=== PATIENT | female | born 1995 | race Caucasian/White ===

== ENCOUNTER 2020-01-02 19:24 | Emergency (ER) | payer MEDICAID, SELFPAY ==
[~2020-01-02] VITALS: Ht 160 cm; Wt 50.0 kg
[2020-01-02 19:25] VITALS: BP 129/81
[2020-01-02] MEDS ORDERED: NOVOINJ SC (19:33)
[2020-01-02] MEDS ORDERED: LANTINJ4 SC (19:33)
[2020-01-02] MEDS ORDERED: NS 1,000 ML IV ONE (19:45)
[2020-01-02] MEDS ORDERED: HumuLIN R (REGULAR) INSULIN (NovoLIN R) **100U/ML** PER UNIT IV ONE (20:15)
[2020-01-02 20:19] LABS: VENOUS PH 7.266 UNITS (7.330-7.430)
[2020-01-02 20:20] LABS: VENOUS BASE EXCESS -0.1 (-2.0-2.0); VENOUS HCO3 28.7 MEQ/L (23.0-27.0); VENOUS O2 SATURATION 46.6 % (60.0-80.0); VENOUS PARTIAL PRESSURE CO2 64.5 mmHg (38.0-50.0); VENOUS PARTIAL PRESSURE O2 28.5 mmHg (30.0-50.0); VENOUS STANDARD HCO3 23.1 MEQ/L; VENOUS TOTAL CO2 30.7 MEQ/L (24.0-28.0)
[2020-01-02 20:24] LABS: BASO % 0.4 % (0.0-1.0); EOS % 0.3 % (0.0-3.0); HEMATOCRIT 44.7 % (36.0-47.0); HEMOGLOBIN 15.2 g/dl (12.0-15.5); LYMPH % 27.4 % (24.0-44.0); MEAN CORPUSCULAR HEMOGLOBIN 29.4 pg (27.0-33.0); MEAN CORPUSCULAR VOLUME 86.5 fl (80.0-96.0); MONO # 0.7 10^3/uL (0.0-0.8); MONO % 10.3 % (0.0-5.0); NEUTROPHILS # 4.4 10^3/uL (1.5-8.5); NEUTROPHILS % 61.3 % (36.0-66.0); PLATELET COUNT, AUTOMATED 337 10^3/uL (150-450); RED BLOOD COUNT 5.17 10^6/uL (4.00-5.40); WHITE BLOOD COUNT 7.1 10^3/uL (4.0-10.0)
[2020-01-02 20:45] LABS: HEMOGLOBIN A1c 13.5 %
[2020-01-02 20:52] LABS: ACETONE/KETONE 1.82 MG/DL (<2.81); ALBUMIN 2.8 GM/DL (3.2-5.2); ALT/SGPT 54 U/L (12-78); BILIRUBIN,DIRECT < 0.1 MG/DL (0.0-0.2); BILIRUBIN,TOTAL 0.2 MG/DL (0.2-1.0); BLOOD UREA NITROGEN 13 MG/DL (7-18); CALCIUM LEVEL 8.6 MG/DL (8.5-10.1); CARBON DIOXIDE LEVEL 31 MEQ/L (21-32); CHLORIDE LEVEL 104 MEQ/L (98-107); CREATININE FOR GFR 0.55 MG/DL (0.55-1.30); GLOMERULAR FILTRATION RATE > 60.0 (>60); GLUCOSE, FASTING 184 MG/DL (70-100); LIPASE 195 U/L (73-393); POTASSIUM SERUM 3.9 MEQ/L (3.5-5.1); SODIUM LEVEL 138 MEQ/L (136-145); TOTAL PROTEIN 6.2 GM/DL (6.4-8.2)
[2020-01-02 21:04] LABS: ABG BASE EXCESS -1.6 (-2.0-2.0); ABG HCO3 23.2 MEQ/L (22.0-26.0); ABG O2 SATURATION 97.8 % (95.0-99.0); ABG PARTIAL PRESSURE CO2 39.8 mmHg (35.0-45.0); ABG PARTIAL PRESSURE O2 106.4 mmHg (75.0-100.0); ABG STANDARD HCO3 23.1 MEQ/L (22.0-26.0); ABG TOTAL CO2 24.5 MEQ/L (22.0-29.0); ABG pH (ARTERIAL) 7.384 UNITS (7.350-7.450)
[2020-01-02] MEDS ORDERED: cefTRIAXone SOD 1 GM in D5W MINI-BAG PLUS 50 ML IV ONE (21:15)
[2020-01-02] MEDS ORDERED: ISOVUE-370 76% 100ML VIAL As Ordered ONE (21:25)
--- NOTE | 2020-01-02 22:10 | REPVR ---
PROCEDURE INFORMATION: Exam: CT Abdomen And Pelvis With Contrast Exam date and time: 01/02/2020 9:57 PM Age: 24 years old Clinical indication: Abdominal pain; Flank; Left; Additional info: Left flank pain, dysuria TECHNIQUE: Imaging protocol: Computed tomography of the abdomen and pelvis with intravenous contrast. Radiation optimization: All CT scans at this facility use at least one of these dose optimization techniques: automated exposure control; mA and/or kV adjustment per patient size (includes targeted exams where dose is matched to clinical indication); or iterative reconstruction. Contrast material: ISOVUE 370; Contrast volume: 100 ml; Contrast route: IV; COMPARISON: No relevant prior studies available. FINDINGS: Liver: Normal. No mass. Gallbladder and bile ducts: Normal. No calcified stones. No ductal dilation. Pancreas: Normal. No ductal dilation. Spleen: There are calcified granulomas involving the spleen. Adrenals: Normal. No mass. Kidneys and ureters: Normal. No hydronephrosis. Stomach and bowel: Moderate to large volume of colonic stool. Appendix: No evidence of appendicitis. Intraperitoneal space: Unremarkable. No free air. No significant fluid collection. Vasculature: Unremarkable. No abdominal aortic aneurysm. Lymph nodes: Scattered mildly enlarged mesenteric lymph nodes. Bladder: Under distended urinary bladder with thickening. Reproductive: Unremarkable as visualized. Bones/joints: Unremarkable. No acute fracture. Soft tissues: Unremarkable. IMPRESSION: 1. Thickening of the urinary bladder wall may at least in part be secondary to underdistention, cystitis not excluded. Please correlate clinically. 2. Scattered mildly enlarged mesenteric lymph nodes, nonspecific. 3. Additional findings as above. Electronically signed by: Олег Mancini On 01/02/2020 22:10:02 PM
[2020-01-02] MEDS ORDERED: BACTRIM 160MG/800MG DS TAB PO ONE (22:45)
[2020-01-02] MEDS ORDERED: BACT800T5 PO (22:48)
== END 2020-01-02 23:25 | disposition home or self-care (01) ==
LOC: M ED 19:24
DX: E10.65 Type 1 diabetes mellitus with hyperglycemia (principal); N39.0 Urinary tract infection, site not specified; R10.9 Unspecified abdominal pain; Z79.4 Long term (current) use of insulin
CPT/HCPCS: 36600; 74177; 80048; 80076; 81001; 82010; 82803; 83036; 83690; 84702; 85025; 87088; 87186; 93041; 96365; 99284; J0696; Q9967

== ENCOUNTER → 2020-01-02 | Outpatient (CLI) | payer MEDICAID, SELFPAY ==
[~2020-01-02] MED LIST: BACT800T5 PO; LANTINJ4 SC; NOVOINJ SC
== END ==
LOC: M OUTALCOH 07:51
PROVIDERS: ATTEND Psychiatry & Neurology Addiction Medicine
DX: F15.20 Other stimulant dependence, uncomplicated (principal)

== ENCOUNTER 2020-08-26 20:41 | Emergency (ER) | payer MEDICAID, OTHER, SELFPAY ==
[~2020-08-26] VITALS: Ht 160 cm; Wt 56.4 kg
[2020-08-26] MEDS ORDERED: SENN-80 PO (20:58)
[2020-08-26] MEDS ORDERED: CVS1CAP2 PO (20:58)
[2020-08-26] MEDS ORDERED: MIRA3350 PO (20:58)
[2020-08-26 21:28] LABS: VENOUS PH 7.328 UNITS (7.330-7.430)
[2020-08-26 21:29] LABS: VENOUS BASE EXCESS -1.3 (-2.0-2.0); VENOUS HCO3 25.3 MEQ/L (23.0-27.0); VENOUS O2 SATURATION 79.3 % (60.0-80.0); VENOUS PARTIAL PRESSURE CO2 49.3 mmHg (38.0-50.0); VENOUS PARTIAL PRESSURE O2 47.1 mmHg (30.0-50.0); VENOUS TOTAL CO2 26.8 MEQ/L (24.0-28.0)
[2020-08-26 21:30] LABS: BASO % 0.6 % (0.0-1.0); EOS % 0.1 % (0.0-3.0); HEMATOCRIT 42.7 % (36.0-47.0); HEMOGLOBIN 14.1 g/dl (12.0-15.5); LYMPH # 1.7 10^3/uL (1.5-5.0); LYMPH % 24.3 % (24.0-44.0); MEAN CORPUSCULAR HEMOGLOBIN 28.5 pg (27.0-33.0); MEAN CORPUSCULAR VOLUME 86.4 fl (80.0-96.0); MONO # 0.6 10^3/uL (0.0-0.8); MONO % 8.4 % (0.0-5.0); NEUTROPHILS # 4.7 10^3/uL (1.5-8.5); NEUTROPHILS % 66.3 % (36.0-66.0); PLATELET COUNT, AUTOMATED 354 10^3/uL (150-450); RED BLOOD COUNT 4.94 10^6/uL (4.00-5.40)
[2020-08-26 22:01] LABS: HCG, SERUM QUALITATIVE NEGATIVE (NEGATIVE); OSMOLALITY SERUM 305 MOSM/KG (275-295)
[2020-08-26 22:15] LABS: ACETONE/KETONE 9.07 MG/DL (<2.81); ALBUMIN 2.8 GM/DL (3.2-5.2); ALT/SGPT 44 U/L (12-78); BILIRUBIN,DIRECT 0.1 MG/DL (0.0-0.2); BILIRUBIN,TOTAL 0.3 MG/DL (0.2-1.0); BLOOD UREA NITROGEN 13 MG/DL (7-18); CALCIUM LEVEL 8.4 MG/DL (8.5-10.1); CARBON DIOXIDE LEVEL 27 MEQ/L (21-32); CHLORIDE LEVEL 98 MEQ/L (98-107); GLOMERULAR FILTRATION RATE > 60.0 (>60); GLUCOSE, FASTING 559 MG/DL (70-100); LIPASE 128 U/L (73-393); POTASSIUM SERUM 4.2 MEQ/L (3.5-5.1); SODIUM LEVEL 132 MEQ/L (136-145); TOTAL PROTEIN 6.1 GM/DL (6.4-8.2)
[2020-08-26 22:29] LABS: HEMOGLOBIN A1c 13.9 %
[2020-08-26] MEDS ORDERED: INSULIN REGULAR IN 0.9 % NACL 100 UNIT in IV 1 EA IV SCH ×2 (22:35)
[2020-08-26] MEDS ORDERED: NS 1,000 ML IV ONE (22:45)
[2020-08-26] MEDS ORDERED: HumuLIN R (REGULAR) INSULIN (NovoLIN R) **100U/ML** PER UNIT IV ONE (22:45)
[2020-08-26] MEDS ORDERED: INSULIN IV RATE CHANGE DOCUMENTATION ML/HR XX SCH (22:45)
[2020-08-26] MEDS ORDERED: MULTCAP PO (23:08)
[2020-08-26 23:10] LABS: ABG BASE EXCESS -2.1 (-2.0-2.0); ABG HCO3 22.3 MEQ/L (22.0-26.0); ABG O2 SATURATION 97.4 % (95.0-99.0); ABG PARTIAL PRESSURE CO2 37.1 mmHg (35.0-45.0); ABG PARTIAL PRESSURE O2 99.1 mmHg (75.0-100.0); ABG STANDARD HCO3 22.7 MEQ/L (22.0-26.0); ABG TOTAL CO2 23.4 MEQ/L (22.0-29.0); ABG pH (ARTERIAL) 7.397 UNITS (7.350-7.450)
[2020-08-27] MEDS ORDERED: NS 1,000 ML IV ONE (00:45)
[2020-08-27 01:52] VITALS: BP 109/76
[2020-08-27 02:17] LABS: CK-MB VALUE MASS < 1.0 NG/ML (<3.6); CPK CREATINE PHOSPHOKINASE 86 U/L (26-192); MB/CK RELATIVE INDEX 1.16 (< OR =4); TROPONIN I < 0.02 NG/ML (< 0.10)
--- NOTE | 2020-08-27 04:15 | ECGEPIP ---
[facility] - ED Test Date: 2020-08-26 Pat Name: SHAKIRA BUENROSTRO Department: Room: - Gender: Female Poker In: LORIE : 1995 Requested By: JESSI MEANS Order Number: [id number] Reading MD: Scott Rebolledo Measurements Intervals [place] Rate: 106 P: 64 AL: 165 QRS: 58 QRSD: 93 T: 19 QT: 345 QTc: 460 Interpretive Statements SINUS TACHYCARDIA POOR R WAVE PROGRESSION NONSPECIFIC T-WAVE ABNORMALITY NO PRIORS FOR COMPARISON Electronically Signed on 08-27-2020 4:14:44 EST by Scott Rebolledo
== END 2020-08-27 01:56 | disposition home or self-care (01) ==
LOC: M ED 20:41
DX: E10.65 Type 1 diabetes mellitus with hyperglycemia (principal); R00.0 Tachycardia, unspecified; Z79.4 Long term (current) use of insulin; Z79.899 Other long term (current) drug therapy

== ENCOUNTER → 2020-09-17 | Outpatient (CLI) | payer OTHER ==
[~2020-09-17] MED LIST changes: +CVS1CAP2 PO; +MIRA3350 PO; +MULTCAP PO; +SENN-80 PO
== END ==
LOC: M RAD 07:13
PROVIDERS: ATTEND Physician Assistant Medical
DX: Z53.9 Procedure and treatment not carried out, unspecified reason (principal); K59.01 Slow transit constipation

== ENCOUNTER → 2020-09-24 | Outpatient (REF) | payer OTHER | LOC: M SFHCADAM 14:18 | PROVIDERS: ATTEND Physician Assistant Medical | DX: N91.2 Amenorrhea, unspecified (principal) ==

== ENCOUNTER → 2020-09-25 | Outpatient (CLI) | payer OTHER ==
--- NOTE | 2020-09-25 15:50 | REP ---
INDICATION: SLOW TRANSIT CONSTIPATION COMPARISON: 01/02/2020 TECHNIQUE: Axial noncontrast images from the lung bases to the pubic symphysis with coronal and sagittal reformations. This CT examination was performed using the following dose reduction techniques: Automated exposure control, adjustment of mA and/or kv according to the patient's size, and use of iterative reconstruction technique. FINDINGS: Lung bases are clear. Visualized heart and pericardium normal. Liver, spleen, pancreas, gallbladder, bilateral adrenal glands and kidneys are normal. Incidental splenic parenchymal calcifications suggest prior granulomatous disease. The enteric system demonstrates moderately prominent fluid filled small bowel along with mesenteric adenopathy and relatively normal appearance to the colon. The appendix is normal. Findings are suspicious for enteritis and/or chronic inflammatory bowel disease. Pelvis demonstrates normal bladder and age-appropriate uterus/adnexa. No ascites. No free air. No focal inflammatory stranding. Abdominal aorta without aneurysm. Musculoskeletal structures are intact and without acute osseous abnormality. IMPRESSION: 1. Prominent fluid-filled small bowel along with mesenteric adenopathy. Differential diagnosis includes acute enteritis as well as chronic inflammatory bowel disease and less likely lymphoma. Gastroenterology consultation and further evaluation/workup may be warranted. <Electronically signed by Tony Rizzo > 09/25/20 0165
== END ==
LOC: M RAD 15:03
PROVIDERS: ATTEND Physician Assistant Medical
DX: K59.01 Slow transit constipation (principal)

== ENCOUNTER → 2020-11-07 | Outpatient (CLI) | payer OTHER ==
[~2020-11-07] MED LIST changes: +ADME100I2 SC; +BASA100I SC; +ETON1VAG3 VG; +GLUC3SPR NARES; +INSU100I28 SC; +VITMTA PO
--- NOTE | 2020-11-09 12:49 | ECHO ---
DATE OF PROCEDURE: 11/07/2020 Age: 24 Gender: Female Height: 63 inches Weight: 140 pounds Body Surface Area: 1.66 m2 PATIENT LOCATION: Outpatient. REFERRING PHYSICIAN: DIANDRA Paiz. INDICATION: Edema. MEASUREMENTS: 2D Measurements: RV 2.3 cm. LV 4.1 cm Septum 0.9 cm Posterior wall 0.9 cm Aortic Root 2.6 cm LA 3.6 cm LVEF 75-80% Doppler Measurements: AV 1.25 m/s LVOT 1.0 m/s MV-E 73, A 73, EA ratio 1 PV - 0.8 m/s Pulmonary artery acceleration time 120 msec RVSP 28 mmHg IVC 1.0 cm COMMENTS: Normal sinus rhythm/sinus tachycardia with rate averaging 100-106 BPM. No intraventricular conduction disturbance. M-mode and 2-dimensional echocardiography was performed with pulse, continuous wave, color flow, and tissue Doppler studies. Normal left ventricular size, wall thickness, and hyperkinetic wall motion. Normal left atrial size and Doppler inflow pattern against LV diastolic function. Unfortunately tissue Doppler signals showed superimposition of both early and late diastolic movements of the left ventricular kohler. Normal right heart chamber sizes and hyperkinetic right ventricular free wall and normal estimated pulmonary arterial pressure. IVC size was somewhat reduced with complete respiratory collapse against an elevated central venous pressure. Normal aortic dimensions. Normal appearing aortic valve and function. Normal appearing mitral valve with no posterior systolic buckling and only trace physiologic insufficiency. Normal appearing tricuspid valve with mild physiologic insufficiency. No apparent intracardiac mass or pericardial effusion. MTDD
== END ==
LOC: M CARPUL 11:37
PROVIDERS: ATTEND Physician Assistant Medical
DX: R60.0 Localized edema (principal)

== ENCOUNTER 2020-11-09 14:51 | Emergency (ER) | payer OTHER ==
[~2020-11-09] VITALS: Ht 160 cm; Wt 66.9 kg
[~2020-11-09 14:51] MED LIST changes: -ADME100I2 SC; -BASA100I SC; -ETON1VAG3 VG; -GLUC3SPR NARES; -INSU100I28 SC; -VITMTA PO
[2020-11-09] MEDS ORDERED: ADME100I2 SC (15:07)
[2020-11-09] MEDS ORDERED: GLUC3SPR NARES (15:07)
[2020-11-09] MEDS ORDERED: BASA100I SC (15:07)
[2020-11-09] MEDS ORDERED: VITMTA PO (15:07)
[2020-11-09] MEDS ORDERED: INSU100I28 SC (15:07)
[2020-11-09] MEDS ORDERED: ETON1VAG3 VG (15:07)
--- OUTSIDE RECORDS SUMMARY | 2020-11-09 15:11 | CCD ---
Author Author [facility] Organization [facility] Address Unknown Phone Unavailable Care Team Providers Care Bander Name Role Phone Lisa Sprague Unavailable PROBLEMS Type Condition ICD9-CM Code [id number] Code Onset Dates Condition S tatus W/U Status Risk SNOMED Code Notes Problem Type 1 diabetes mellitus with hyperglycemia E10.65 Active confirmed 138850015381709 Problem Slow transit constipation K59.01 Active confirmed 64539990 Problem Major depressive disorder, single episode, moderate F32.1 Active confirmed 61605406 Problem History of methamphetamine abuse F15.11 Active confirmed 37192472719773022 Problem Severe episode of recurrent major depressive disorder, without psychotic features F33.2 Active confirmed 97121734 Problem Amenorrhea N91.2 Active confirmed 03749594 Problem assisted (current) use of insulin Z79.4 Activ e confirmed 480515372 ALLERGIES No Known Allergies ENCOUNTERS from 1995 to 2020-11-06 Encounter Location Date Provider Diagnosis [id number] [place] [address] Oct, Mar jeniffer Sprague IMMUNIZATIONS Vaccine Route Administration Date Status Influenza (18 yrs & older) Flublok IM Intramuscular Sep 04, 2020 Administered SOCIAL HISTORY Tobacco Use: Social History Observation Description Date Details (start date - stop date) Never Smoker Sex Assigned At : Social History Observation Description Sex Assigned At Unknown Audit Question Answer Notes Total Score: 1 Interpretation: Alcohol Education Language: Question Answer Notes Languages spoken: Serbian Drug and Alcohol Question Answer Notes Total Score: 0 Interpretation: No problems reported Alcohol Screening: Question Answer Notes Did you have a drink containing alcohol in the past year? No Points 0 Interpretation Negative Tobacco Use: Question Answer Notes Are you a: never smoker REASON FOR REFERRAL No Information VITAL SIGNS No information MEDICATIONS Medication SIG (Take, Route, Frequency, Duration) Notes Start Da te End Date Status BD Pen Needle Mini U/F 31G X 5 MM for 25 Active NuvaRing 0.12-0.015 MG/24HR [address] for 3 weeks, remove, and replace with a new ring after 7 day break Vaginal as directed for 28 day(s) Aug, Active Probiotic 250 MG 1 capsule Orally Daily Active Multivitamin - 1 tablet Orally Once a day for 30 day(s) Active MiraLax 17 GM/SCOOP 1 cap with 8 ounces of fluid Orally bid Active Linzess 145 MCG 1 capsule at least 30 minute s before the first meal of the day on an empty stomach Orally Once a day for 30 day(s) Aug, Not-Taking Lantus SoloStar 100 UNIT/ML 28 units Subcutaneous before bedtime Active NovoLog Flexpen 100 UNIT/ML MDD 30 UNITS Subcutaneous 3 times a day as needed Active Lactulose 10 GM/15ML 15-30 ml Orally Once a day as needed for constipation for 30 day(s) Aug, Active Senna Lax 8.6 MG 2 tablets at bedtime as needed Orally bid as needed Active PROCEDURES No Information RESULTS No Results REASON FOR VISIT 11/05 visit MEDICAL (GENERAL) HISTORY Type Description Date Medical History meth use- clean since 05/05/20 20 - clean on her own, started using 05/2019. Medical History borderline personality d/o, depression, anxiety Medical History DM1 dx 2014 Medical History NO IV drug use Surgical History lymph node removal - neck 11/11/2002 Surgical History wisdom teeth extract 04/2011 Surgical History C section 04/24/2017 Hospitalization History kidney infection - [place] 02/2020 Goals Section No Information Health Concerns No Information MEDICAL EQUIPMENT No Information MENTAL STATUS No Information FUNCTIONAL STATUS No Information ASSESSMENTS No Information PLAN OF TREATMENT Next Appt Details Provider Name:Denae Carlin, 2020-10 03:00:00 PM, [address] [place] [address], [phone] Provider Name:Lisa Sprague, 2020-11-23 01:00:00 PM, [address] [place], [address], Provider Name:Lena Holliday, 2020-11 10:40:00 AM, [address] [place], [address], Insurance Providers Payer Name Payer Address Payer Phone Insured Name Patient Relati onship to Insured Coverage Start Date Coverage End Date [facility] CLAIMS DEPT [address] [facility] [phone] SHAKIRA BUENROSTRO self
--- OUTSIDE RECORDS SUMMARY | 2020-11-09 15:11 | CCD | Summary of Care ---
Author Author [facility] Address Unknown Phone Unavailable Care Team Providers Care Tester Rocket Engine Name Role Phone Js Alem Gary PURIFICATION SUPERVISOR PCP Reason for Visit * Reason Comments Diabetes Encounter Details Care Team Description Date Type Department Makenzie Duran, RD [address] [place] [address] [phone] Type 1 diabetes mellitus with hyperglyce sara 11/05/2020 Telemedicine [facility] [address] [place] [id number] Allergies No Known Allergiesdocumented as of this encounter (statuses as of 11/05/2020) Medications End Date Status Medication Sig Dispensed Refills Start Date Active Insulin Disposable Pump Use as 30 each 4 (OMNIPOD) MISC directed. 7 Pods 3 month supply change every 72 hrs Additional Information Patient not taking. Reported on 10/19/2020 9:04 AM Active Insulin Disposable Pump Use as 1 kit 0 (OMNIPOD STARTER) directed. Use 7 KITIndications: Type 1 as directed diabetes mellitus without complication Active Acetaminophen (TYLENOL Take by mouth 0 PO) daily as needed Active etonogestrel-ethinyl Place 1 each 0 estradiol (NUVARING) vaginally 0.12-0.015 MG/24HR every 28 vaginal ring (twenty-eight ) days Insert vaginally and leave in place for 3 consecutive weeks, then remove for 1 week. Active insulin lispro (HUMALOG) Use as 90 mL 1 0 100 UNIT/ML directed in 8 vialIndications: Type 1 pump Total diabetes mellitus without daily dose complication not to exceed 80 units with titration Additional Information Patient not taking. Reported on 10/19/2020 9:04 AM Active Insulin Disposable Pump Use as 50 each 3 (OMNIPOD) directed. 8 MISCIndications: Type 1 Omnipod Pack diabetes mellitus without change every complication other day E10.65 Additional Information Patient not taking. Reported on 10/19/2020 9:14 AM Active FreeStyle Lite Use as 1 each 0 DeviceIndications: Type 1 directed. To 0 diabetes mellitus with check blood hyperglycemia glucose 6 times daily. Dx E10.65 Additional Information Patient not taking. Reported on 10/19/2020 9:04 AM Active Multiple Vitamin Take by mouth 0 (MULTIVITAMIN PO) Active Probiotic Product Take by mouth 0 (PROBIOTIC PO) Active Admelog SoloStar 100 USE 15 mL 5 10/19 UNIT/ML Subcutaneous DIRECTED 10 1 Solution TO 12 UNITS Pen-injectorIndications: THREE TIMES A Type 1 diabetes mellitus DAY. MAXIMUM with hyperglycemia DAILY DOSE 50 UNITS. Active Basaglar KwikPen 100 INJECT 28 30 mL 5 10/19 UNIT/ML Subcutaneous UNITS UNDER 1 Solution THE SKIN Pen-injectorIndications: NIGHTLY. Type 1 diabetes mellitus MAXIMUM DAILY with hyperglycemia DOSE 55 UNITS Active FreeStyle Use as 600 each 1 LancetsIndications: Type directed. To 1 1 diabetes mellitus with check blood hyperglycemia glucose 6 times daily. Dx E10.65 Active FreeStyle Lite Test In Use as 600 each Vitro Strip (glucose instructed to 1 blood)Indications: Type 1 check blood diabetes mellitus with glucose 6 hyperglycemia times daily. Dx E10.65 Active Baqsimi One Pack 3 Use as 2 each 1 02 MG/DOSE Nasal Powder instructed to 1 (Glucagon)Indications: treat low Type 1 diabetes mellitus blood with hyperglycemia glucose. Dx E10.65 documented as of this encounter (statuses as of 11/05/2020) Active Problems Problem Noted Date Vitamin D deficiency 10/19/2020 Depression 10/19/[address] 10/19/2017 Last Assessment & Plan: Omnipod Post-operative state 05/01/2017 GBS (group B Streptococcus carrier), +RV culture, cur rently 04/20/2017 renal anomaly 02/17/2017 Overview: Bilateral hydronephrosis, R>L Type 1 diabetes mellitus affecting in secon d trimester, 12/08/2016 antepartum Overview: Insulin regimen---want pump Serial USG CD if EFW>4500 grams Declines marker testing NST/JASSON at 32 weeks to twice weekly at 34 weeks Delivery between 37-[address] an at 36 weeks. Type 1 diabetes mellitus with hyperglycemia 08/27/20 16 Long-term insulin use 05/23/2016 Last Assessment & Plan: Formatting of this note might be differ ent from the original. Currently using Basal/Bolus MDI Increase Basaglar 28 units at bedtime Ademelog pen per ratios below Using Omnipod as meter and for calculat ions Insulin Pump Record (Advanced) Rose Kaye : 1995 10/19/2020 Insulin Type: Humalog Insulin Pump Model: Omnipod Bolus Increment: Infusion Set: Time of Day: Insulin to Carbohydrate Ra sabina Sensitivity Factor (Correction) Blood Glucose Target Activ e Insulin If blood glucose is below target goal t hen, subtract unit(s) of insulin, required for a meal or snack #1 Breakfast 8.1 25.1 all day 120 all d ay 3 hours #2 Mid- Morning snack #3 Lunch 8.1 #4 Afternoon snack #5 Supper 8.1 #6 Evening snack 10.1 Basal Increment for Pump Model: Unit/ hr Basal Insulin Basal Rate Starting Time Basal Rate S tarting Time Basal #1 1.20 unit/hr 00:00 Basal #6 u nit/hr Basal #2 1.60 unit/hr 05:00 Basal #7 u nit/hr Basal #3 1.70 unit/hr 14:00 Basal #8 u nit/hr Basal #4 1.20 unit/hr 20:00 Basal #9 u nit/hr Basal #5 unit/hr Basal #10 unit/hr Type 1 diabetes mellitus without complication 2015 Overview: Formatting of this note might be differ ent from the original. Insulin Sliding Scale current as of 02/27 0/17 CC Blood sugar Current dose New dose 70-120 12 121-150 14 151-175 16 176-200 18 201-225 20 226-250 22 251-300 24 >300 Call [facility] office documented as of this encounter (statuses as of 11/05/2020) Resolved Problems Problem Noted Date Resolved Date Allergic reaction 10/19/2017 10/19/2017 Encounter for procreative management 04/08/2016 0 12/23/2016 documented as of this encounter (statuses as of 11/05/2020) Social History Date Tobacco Use Types Packs/Day Years Used Never Smoker Smokeless Tobacco: Never Used Drinks/Week oz/Week Comments Alcohol Use 0 Standard drinks or equivalent 0.0 No Sex Assigned at Date Recorded Not on file documented as of this encounter Last Filed Vital Signs Not on filedocumented in this encounter Progress Notes * Makenzie Duran RD - 11/05/2020 9:00 AM EST Insulin Pump and CGM Interest [facility] Date: 11/05/2020 Time In: 9:00 am Time Out: 10:00 am Duration of Visit: 60 min Rose Kaye : 1995 Referring Physician: Milana JIM Educator Pump Evaluation Comments: Pt has used Omnipod in the past. She still us es her PDM as a meter. Diabetes self-management skills assessed/intruction provided: Review of ketostix use. Pended script to Antoine ashanti CGM review- discussed lag time Reviewed available pumps and CGMs Patient preference for insulin pump +/- CGM: Omnipod DASH and Dexcom G6 Assessment/Plan for insulin pump therapy: Submit for pump/CGM T documented in this encounter Plan of Treatment Care Team Description Date Type Specialty Milana Nunes PA [address] [place] [address] [phone] 01/24/2021 Telemedicine Endocrinology Milana Nunes PA [address] [place] [address] [phone] 04/26/2021 Telemedicine Endocrinology Bubba Ospina MD [address] [place] [address] [phone] 09/03/2021 Office Visit Endocrinology Health Maintenance Due Date Last Done Comments MMR Vaccines (1 of 1 - 1994 Standard series) Varicella Vaccines (1 of 1994 2 - 2-dose childhood series) Pneumococcal Vaccine: 12/16/1999 Pediatrics (0 to 5 Years) and At-Risk Patients (6 to 64 Years) (1 of 1 - PPSV23) DTaP,Tdap,and Td Vaccines 2000 (1 - Tdap) HPV Vaccines (1 - 2-dose 2004 series) Hepatitis B Vaccines (1 2012 of 3 - Risk 3-dose series) Cervical Cancer Screening 10/23/2019 10/23/2016 3 years Influenza Vaccine 06/28/2020 Pneumococcal Vaccine: 65+ 2058 Years (1 of 1 - PPSV23) HIV Screening Completed 02/17/2017, 10/23/2016 HIB Vaccines Aged Out No longer eligible based on patient's age to complete this topic Hepatitis A Vaccines Aged Out No longer eligibl e based on patient's age to complete this topic IPV Vaccines Aged Out No longer eligible based on patient's age to complete this topic documented as of this encounter Results Not on filedocumented in this encounter Visit Diagnoses Diagnosis Type 1 diabetes mellitus with hyperglyc emia Type I (juvenile type) diabetes mellitu s without mention of complication, not stated as uncontrolled documented in this encounter
--- OUTSIDE RECORDS SUMMARY | 2020-11-09 15:12 | CCD ---
Author Author [facility] Organization [facility] Address Unknown Phone Unavailable Care Team Providers Care Front Office Clerk Name Role Phone Lisa Sprague Unavailable PROBLEMS Type Condition ICD9-CM Code [id number] Code Onset Dates Condition S tatus SNOMED Code Notes Problem Slow transit constipation K59.01 Active 365517 07 Problem Type 1 diabetes mellitus with hyperglycemia E10.65 Active 687033753311786 Problem History of methamphetamine abuse F15.11 Active 47894029048821676 Problem Severe episode of recurrent major depressive disorder, without psychotic features F33.2 Active 63743778 Problem Amenorrhea N91.2 Active 19277418 Problem MCFP (current) use of insulin Z79.4 Activ e 279599026 ALLERGIES No Known Allergies ENCOUNTERS from 1995 to 2020-09-06 Encounter Location Date Provider Diagnosis [address] [address] Aug, Lisa Sprague IMMUNIZATIONS Vaccine Route Administration Date Status Influenza (18 yrs & older) Flublok IM Intramuscular Sep 04, 2020 Administered SOCIAL HISTORY Tobacco Use: Social History Observation Description Date Details (start date - stop date) Never Smoker Sex Assigned At : Social History Observation Description Sex Assigned At Unknown Language: Question Answer Notes Languages spoken: Nauruan Alcohol Screening: Question Answer Notes Did you [...] 31G X 5 MM for 25 Active Probiotic 250 MG 1 capsule Orally Daily Active Lantus SoloStar 100 UNIT/ML 20 units Subcutaneous before bedtime Active Multivitamin - 1 tablet Orally Once a day for 30 day(s) Active NovoLog Flexpen 100 UNIT/ML MDD 30 UNITS Subcutaneous 3 times a day as needed Active NuvaRing 0.12-0.015 MG/24HR [address] for 3 weeks, remove, and replace with a new ring after 7 day break Vaginal as directed for 28 day(s) Aug, Active Linzess 145 MCG 1 capsule at least 30 minute s before the first meal of the day on an empty stomach Orally Once a day for 30 day(s) Aug, Active Lactulose 10 GM/15ML 15-30 ml Orally Once a day as needed for constipation for 30 day(s) Aug, Active MiraLax 17 GM/SCOOP 1 cap with 8 ounces of fluid Orally bid Active Senna Lax 8.6 MG 2 tablets at bedtime as needed Orally bid as needed Active PROCEDURES No Information RESULTS No Results REASON FOR VISIT DIANDRA Ailinstephani 145mcg cap, QD MEDICAL (GENERAL) HISTORY Type Description Date Medical History meth use- clean since 05/05/20 20 - clean on her own, started using 05/2019. Medical History borderline personality d/o, depression, anxiety Medical History DM1 dx 2014 Surgical History lymph node removal - neck 11/11/2002 Surgical History wisdom teeth extract 04/2011 Surgical History C section 04/24/2017 Hospitalization History kidney infection - [place] 02/2020 Goals Section No Information Health Concerns No Information MEDICAL EQUIPMENT No Information MENTAL STATUS No Information FUNCTIONAL STATUS No Information ASSESSMENTS No Information PLAN OF TREATMENT Medication Medication Name Sig Start Date Stop Date Linzess 145 MCG 1 capsule at least 30 minute s before the first meal of the day on an empty stomach Orally Once a day for 30 day(s) Aug, Lactulose 10 GM/15ML 15-30 ml Orally Once a day as needed for constipation for 30 day(s) Aug, NuvaRing 0.12-0.015 MG/24HR [address] for 3 weeks, remove, and replace with a new ring after 7 day break Vaginal as directed for 28 day(s) Aug, Next Appt Details Provider Name:Lisa Sprague, 2020-10-01 09:00:00 AM, [address], [place], [address], Insurance Providers Payer Name Payer Address Payer Phone Insured Name Patient Relati onship to Insured Coverage Start Date Coverage End Date [facility] [employer]PORATE CLAIMS DEPT [address] [facility] [phone] SHAKIRA BUENROSTRO self
--- OUTSIDE RECORDS SUMMARY | 2020-11-09 15:12 | CCD ---
Author Author [facility] Organization [facility] Address Unknown Phone Unavailable Care Team Providers Care Corn Shucker Name Role Phone Denae Carlin Unavailable PROBLEMS Type Condition ICD9-CM Code [id number] Code Onset Dates Condition S tatus W/U Status Risk SNOMED Code Notes Problem Type 1 diabetes mellitus with hyperglycemia E10.65 Active confirmed 015692659969339 Problem Slow transit constipation K59.01 Active confirmed 65554086 Problem Major depressive disorder, single episode, moderate F32.1 Active confirmed 68434799 Problem 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 [address] [place] [address] Sep Denae Carlin Major depressive disorder, single episod e, moderate F32.1 IMMUNIZATIONS Vaccine Route Administration Date Status Influenza (18 yrs & older) Flublok IM Intramuscular Sep 04, 2020 Administered SOCIAL HISTORY Tobacco Use: Social History Observation Description Date Details (start date - stop date) Never Smoker Sex Assigned At : Social History Observation Description Sex Assigned At Unknown Language: Question Answer Notes Languages spoken: Romanian Alcohol Screening: Question Answer Notes Did you [...] Information RESULTS No Results REASON FOR VISIT zoom MEDICAL (GENERAL) HISTORY Type Description Date Medical [...] No Information FUNCTIONAL STATUS No Information ASSESSMENTS Encounter Date Diagnosis Assessment Notes Treatment Notes Treatm ent Clinical Notes Sep, Major depressive disorder, s louise episode, moderate (ICD-10 - F32.1) Rose was seen for a follow up session, via zoom. Reports symptoms have remained the same. Scheduled for a return session 11/12/2020. PLAN OF TREATMENT Medication Medication Name Sig [...] Vaginal as directed for 28 day(s) Aug, Treatment Notes Assessment Notes Clinical Notes Major depressive disorder, single episode, moderate Rose was seen for a follow up session, via zoom. Reports symptoms have remained the same. Scheduled for a return session 11/12/2020. Next Appt Details Provider Name:Lisa Sprague, 2020-11-05 02:00:00 PM, [address], [place], [address], Provider Name:Denae Carlin, 2020-10 03:00:00 PM, [address], [place], [address] Provider Name:Lena Holliday, 2020-11 10:40:00 AM, [address] [place], [address], Insurance Providers Payer Name Payer Address Payer Phone Insured Name Patient Relati onship to Insured Coverage Start Date Coverage End Date [employer] DE[employer] [address] [facility] [phone] ROSE BUENROSTRO
--- OUTSIDE RECORDS SUMMARY | 2020-11-09 15:12 | CCD ---
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 Active 05091828139609914 Problem Severe episode of recurrent major depressive disorder, without psychotic features F33.2 Active 90537713 Problem Amenorrhea N91.2 Active 62360557 Problem halfway (current) use of insulin Z79.4 Activ e 349334281 ALLERGIES No Known Allergies ENCOUNTERS from 1993 to 2020-09-18 Encounter Location Date Provider Diagnosis [address] [place] [address] Aug, Mar ia Darcie Amenorrhea N91.2 IMMUNIZATIONS Vaccine Route Administration Date Status Influenza (18 yrs & older) Flublok IM Intramuscular Sep 04, 2020 Administered SOCIAL HISTORY Tobacco Use: Social History Observation Description Date Details (start date - stop date) Never Smoker Sex Assigned At : Social History Observation Description Sex Assigned At Unknown Language: Question Answer Notes Languages spoken: Cuban Alcohol Screening: Question Answer Notes Did you [...] Information RESULTS No Results REASON FOR VISIT letter for not MEDICAL (GENERAL) HISTORY Type Description Date Medical [...] Notes Treatment Notes Treatm ent Clinical Notes Aug, Amenorrhea (ICD-10 - N91.2) PLAN OF TREATMENT Medication Medication Name Sig [...] Vaginal as directed for 28 day(s) Aug, Future Test Test Name Order Date HCG, SERUM QUANTITATIVE [id number] Next Appt Details Provider Name:Denae Carlin 2020-08 08:00:00 AM, [address], [place], [address] Provider Name:Lisa Trent Darcie, 2020-10-01 09:00:00 AM, [address], [place], [address], Insurance Providers Payer Name Payer Address Payer Phone Insured Name Patient Relati onship to Insured Coverage Start Date Coverage End Date [facility] CORPORATE CLAIMS DEPT [address] [facility] [phone] SHAKIRA BUENROSTRO
--- OUTSIDE RECORDS SUMMARY | 2020-11-09 15:12 | CCD ---
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 [address] [place] [address] Sep Denae Carlin Major depressive disorder, single [...] Unknown Language: Question Answer Notes Languages spoken: North Korean Alcohol Screening: Question Answer Notes Did you [...] Rose was seen for a follow up session. Reports symptoms have remained the same. Scheduled for a return session 10/25/2020 PLAN OF TREATMENT Medication Medication Name Sig [...] Rose was seen for a follow up session. Reports symptoms have remained the same. Scheduled for a return session 10/25/2020 Next Appt Details Provider Name:Denae Carlin, 2020-09 03:00:00 PM, [address], [place], [address] Provider Name:Lisa Sprague, 2020-10-30 09:30:00 AM, [address], [place], [address], Insurance Providers Payer Name Payer Address Payer Phone Insured Name Patient Relati onship to Insured Coverage Start Date Coverage End Date [facility] [employer] CLAIMS DEPT [address] [facility] [phone] ROSE BUENROSTRO self
--- OUTSIDE RECORDS SUMMARY | 2020-11-09 15:12 | CCD ---
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 Active 91370271982437606 Problem Severe episode of recurrent major depressive disorder, without psychotic features F33.2 Active 19940863 Problem Amenorrhea N91.2 Active 26581613 Problem 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 Activ e 617183937 ALLERGIES No Known Allergies ENCOUNTERS from 1993 to 2020-09-19 Encounter Location Date Provider Diagnosis [address] [place] [address] Aug Denae Carlin Major depressive disorder, single episod e, moderate F32.1 IMMUNIZATIONS Vaccine Route Administration Date Status Influenza (18 yrs & older) Flublok IM Intramuscular Sep 04, 2020 Administered SOCIAL HISTORY Tobacco Use: Social History Observation Description Date Details (start date - stop date) Never Smoker Sex Assigned At : Social History Observation Description Sex Assigned At Unknown Language: Question Answer Notes Languages spoken: Latvian Alcohol Screening: Question Answer Notes Did you [...] Information RESULTS No Results REASON FOR VISIT No Information MEDICAL (GENERAL) HISTORY Type Description Date Medical [...] Treatment Notes Treatm ent Clinical Notes Aug, Major depressive disorder, s louise episode, moderate (ICD-10 - F32.1) Rose was seen for a follow up appointment via zoom. Reports symptoms have remained the same. Scheduled for a return session 10/11/2020 PLAN OF TREATMENT Medication Medication Name Sig [...] Rose was seen for a follow up appointment via zoom. Reports symptoms have remained the same. Scheduled for a return session 10/11/2020 Next Appt Details Provider Name:Lisa Sprague, 2020-10-01 09:00:00 AM, [address], [place], [address], Provider Name:Denae Carlin, 2020-09 09:00:00 AM, [address], [place], [address] Insurance Providers Payer Name Payer Address Payer Phone Insured Name Patient Relati onship to Insured Coverage Start Date Coverage End Date [facility] CORPORATE CLAIMS DEPT [address] [facility] [phone] ROSE BUENROSTRO self
--- OUTSIDE RECORDS SUMMARY | 2020-11-09 15:12 | CCD ---
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 Active 35244532972212629 Problem Severe episode of recurrent major depressive disorder, without psychotic features F33.2 Active 35809994 Problem Amenorrhea N91.2 Active 78685808 Problem intermediate (current) use of insulin Z79.4 Activ e 471784023 ALLERGIES No Known Allergies ENCOUNTERS from 1993 to 2020-09-06 Encounter Location Date Provider Diagnosis [address] [place] [address] Aug, Mar jeniffer Sprague Type 1 diabetes mellitus with hyperglycemia E10.65 ; intermediate (current) use of insulin Z79.4 ; Severe episode of recurrent major depressive disorder, without psychotic features F33.2 ; History of methamphetamine abuse 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 ; Slow transit constipation K59.01 ; Lymphadenopathy, abdominal R59.0 ; Family planning Z30.09 ; Amenorrhea N91.2 and Encounter for immunization Z23 IMMUNIZATIONS Vaccine Route Administration Date Status Influenza (18 yrs & older) Flublok IM Intramuscular Sep 04, 2020 Administered SOCIAL HISTORY Tobacco Use: Social History Observation Description Date Details (start date - stop date) Never Smoker Sex Assigned At : Social History Observation Description Sex Assigned At Unknown Language: Question Answer Notes Languages spoken: Cypriot Alcohol Screening: Question Answer Notes Did you have a drink containing alcohol in the past year? No Points 0 Interpretation Negative Tobacco Use: Question Answer Notes Are you a: never smoker REASON FOR REFERRAL No Information VITAL SIGNS Weight 119 lbs Aug, Height 5'3" in Aug, BMI 21.08 kg/m2 Aug, Heart Rate 114 /min Aug, Respiratory Rate 18 /min Aug, Temperature 97.8 degrees Fahrenheit Aug, Oximetry 95 Aug, Blood pressure systolic 120 mm Hg Aug, Blood pressure diastolic 70 mm Hg Aug, MEDICATIONS Medication SIG (Take, Route, Frequency, Duration) [...] needed Orally bid as needed Active PROCEDURES from 1993 to 2020-09-06 Procedure Date Ordered Result Body Site Immunization: Flublok Quadrivalent (18 years & older) 0.5mL IM (Influenza) 2020-09-04 N/A RESULTS No Results REASON FOR VISIT ED Visit [facility] D/C 08/27; Diabetic Problem/ est care MEDICAL (GENERAL) HISTORY Type Description Date Medical [...] Treatment Notes Treatm ent Clinical Notes Aug, Type 1 diabetes mellitus with hyperglycemia (ICD -10 - E10.65) 08/17 A1c 13.9, stressed importance of checking her FSBS 3-4 times daily, use of Novolog, cont with Lantus. Referral to [facility] placed. 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 Pt agreeable. Aug, History of methamphetamine abuse (ICD-10 - F15.1 1) Clean since 04/2020, did this on her own. Aug, Slow transit constipation (ICD-10 - K59.01) Cont with Miralax and Senna, add Linzess, counseld on use as well as risks and benefits. Will obtain records on imaging done in [place] 12/2019 CT showed + mesenteric lymphadenopathy as well, will try to obtain f/u. Aug, Lymphadenopathy, abdominal (ICD-10 - R59.0) Aug, Family planning (ICD-10 - Z30.09) Aug, Amenorrhea (ICD-10 - N91.2) Referral to [facility] sent, LMP 02/2020, hcg Neg 08/26/2020, Nuvaring ordered, counseled on risks and benefits assoc with medication. Aug, Encounter for immunization (ICD-10 - Z23) PLAN OF TREATMENT Medication Medication Name Sig [...] Aug, Treatment Notes Assessment Notes Clinical Notes Type 1 diabetes mellitus with hyperglycemia 08/17 A1c 13.9, stressed importance of checking her FSBS 3-4 times daily, use of Novolog, cont with Lantus. Referral to [facility] placed. Severe episode of recurrent major depres sive disorder, without psychotic features Rec [facility], M-F 8-11 AM. Pt agreeable. History of methamphetamine abuse Clean since 04/2020, did thi s on her own. Slow transit constipation Cont with Miralax and Senna, add Linzess, counseld on use as well as risks and benefits. Will obtain records on imaging done in [place] 12/2019 CT showed + mesenteric lymphadenopathy as well, will try to obtain f/u. Amenorrhea Referral to [facility] sent, LMP , hcg Neg 08/26/2020, Nuvaring ordered, counseled on risks and benefits assoc with medication. Treatment Notes Test Name Order Date CT ABD & Pelvis w/o Contrast 2020-09-06 Next Appt Details rec release [facility] for imaging, 3-4 w Reason: Provider Name:Lisa Sprague, 2020-10-01 09:00:00 AM, [address], [place], [address], Insurance Providers Payer Name Payer Address Payer Phone Insured Name Patient Relati onship to Insured Coverage Start Date Coverage End Date [employer] DEPT [address] [facility] [phone] SHAKIRA BUENROSTRO self
--- OUTSIDE RECORDS SUMMARY | 2020-11-09 15:13 | CCD ---
Author Author [facility] Organization [facility] Address Unknown Phone Unavailable Care Team Providers Care Target Trimmer Name Role Phone Cesario Shukla Unavailable Unavailable Cesario ShuklaP Unavailable Unavailable Shaben, E Cristina YARN SKEINS EXAMINER Unavailable Unavailable Shaben, E Cristina YARN SKEINS EXAMINER Unavailable Unavailable Shaben, E Cristina YARN SKEINS EXAMINER Unavailable Unavailable Shaben, E Cristina YARN SKEINS EXAMINER Unavailable Unavailable Shaben, E Cristina YARN SKEINS EXAMINER Unavailable Unavailable Shaben, E Cristina YARN SKEINS EXAMINER Unavailable Unavailable Shaben, E Cristina YARN SKEINS EXAMINER Unavailable Unavailable Shaben, E Cristina YARN SKEINS EXAMINER Unavailable Unavailable Shaben, E Cristina YARN SKEINS EXAMINER Unavailable Unavailable Shaben, E Cristina YARN SKEINS EXAMINER Unavailable Unavailable Shaben, E Cristina YARN SKEINS EXAMINER Unavailable Unavailable Shaben, E Cristina YARN SKEINS EXAMINER Unavailable Unavailable Shaben, E Cristina YARN SKEINS EXAMINER Unavailable Unavailable Shaben, E Cristina YARN SKEINS EXAMINER Unavailable Unavailable Shaben, E Cristina YARN SKEINS EXAMINER Unavailable Unavailable Shaben, E Cristina YARN SKEINS EXAMINER Unavailable Unavailable Shaben, E Cristina YARN SKEINS EXAMINER Unavailable Unavailable Shaben, E Cristina YARN SKEINS EXAMINER Unavailable Unavailable Shaben, E Cristina YARN SKEINS EXAMINER Unavailable Unavailable Shaben, E Cristina YARN SKEINS EXAMINER Unavailable Unavailable Shaben, E Cristina YARN SKEINS EXAMINER Unavailable Unavailable Shaben, E Cristina YARN SKEINS EXAMINER Unavailable Unavailable Miko EUGENE Unavailable Unavailable Cookie Weinstein RN MS YARN SKEINS EXAMINER CDE Unavailable Unavailabl Cookie Hernandez RN MS YARN SKEINS EXAMINER CDE Unavailable Unavailabl Cookie Hernandez RN MS YARN SKEINS EXAMINER CDE Unavailable Unavailabl Cookie Hernandez RN MS YARN SKEINS EXAMINER CDE Unavailable Unavailabl Cookie Hernandez RN MS YARN SKEINS EXAMINER CDE Unavailable Unavailabl Cookie Hernandez RN MS YARN SKEINS EXAMINER CDE Unavailable Unavailabl Cookie Hernandez RN MS YARN SKEINS EXAMINER CDE Unavailable Unavailabl Cookie Hernandez RN MS YARN SKEINS EXAMINER CDE Unavailable Unavailabl Cookie Hernandez RN MS YARN SKEINS EXAMINER CDE Unavailable Unavailabl Cookie Hernandez RN MS YARN SKEINS EXAMINER CDE Unavailable Unavailabl Cookie Hernandez RN MS YARN SKEINS EXAMINER CDE Unavailable Unavailabl Cookie Hernandez RN MS YARN SKEINS EXAMINER CDE Unavailable Unavailabl Cookie Hernandez RN MS YARN SKEINS EXAMINER CDE Unavailable Unavailabl Cookie Hernandez RN MS YARN SKEINS EXAMINER CDE Unavailable Unavailabl Cookie Hernandez RN MS YARN SKEINS EXAMINER CDE Unavailable Unavailabl Cookie Hernandez RN MS YARN SKEINS EXAMINER CDE Unavailable Unavailabl Cookie Hernandez RN MS YARN SKEINS EXAMINER CDE Unavailable Unavailabl Cookie Hernandez RN MS YARN SKEINS EXAMINER CDE Unavailable Unavailabl Cookie Hernandez RN MS YARN SKEINS EXAMINER CDE Unavailable Unavailabl Cookie Hernandez RN MS YARN SKEINS EXAMINER CDE Unavailable Unavailabl cesario Weinstein, Cookie Ferrara RN MS YARN SKEINS EXAMINER CDE Unavailable Unavailabl cesario Weinstein, Cookie Ferrara RN MS YARN SKEINS EXAMINER CDE Unavailable Unavailabl cesario Weinstein, Cookie Ferrara RN MS YARN SKEINS EXAMINER CDE Unavailable Unavailabl e Js, Cookie Ferrara RN MS YARN SKEINS EXAMINER CDE Unavailable Unavailabl e Js, Cookie Ferrara RN MS YARN SKEINS EXAMINER CDE Unavailable Unavailabl e Js, Cookie Ferrara RN MS YARN SKEINS EXAMINER CDE Unavailable Unavailabl e Js, Cookie Ferrara RN MS YARN SKEINS EXAMINER CDE Unavailable Unavailabl e Js, Cookie Ferrara RN MS YARN SKEINS EXAMINER CDE Unavailable Unavailabl e Js, Cookie Ferrara RN MS YARN SKEINS EXAMINER CDE Unavailable Unavailabl e Cookie Weinstein RN MS YARN SKEINS EXAMINER CDE Unavailable Unavailabl e Cookie Weinstein RN MS YARN SKEINS EXAMINER CDE Unavailable Unavailabl e Cookie Weinstein RN MS YARN SKEINS EXAMINER CDE Unavailable Unavailabl e Js, Cookie Ferrara RN MS YARN SKEINS EXAMINER CDE Unavailable Unavailabl e Cookie Weinstein RN MS YARN SKEINS EXAMINER CDE Unavailable Unavailabl e Cookie Weinstien RN MS YARN SKEINS EXAMINER CDE Unavailable Unavailabl cesario Weinstein, Cookie Ferrara RN MS YARN SKEINS EXAMINER CDE Unavailable Unavailabl cesario Weinstein, Cookie Ferrara RN MS YARN SKEINS EXAMINER CDE Unavailable Unavailabl Cookie Hernandez RN MS YARN SKEINS EXAMINER CDE Unavailable Unavailabl Cookie Hernandez RN MS YARN SKEINS EXAMINER CDE Unavailable Unavailabl Cookie Hernandez RN MS YARN SKEINS EXAMINER CDE Unavailable Unavailabl Cookie Hernandez RN MS YARN SKEINS EXAMINER CDE Unavailable Unavailabl Cookie Hernandez RN MS YARN SKEINS EXAMINER CDE Unavailable Unavailabl Cookie Hernandez RN MS YARN SKEINS EXAMINER CDE Unavailable Unavailabl Cookie Hernandez RN MS YARN SKEINS EXAMINER CDE Unavailable Unavailabl Cookie Hernandez RN MS YARN SKEINS EXAMINER CDE Unavailable Unavailabl Cookie Hernandez RN MS YARN SKEINS EXAMINER CDE Unavailable Unavailabl Cookie Hernandez RN MS YARN SKEINS EXAMINER CDE Unavailable Unavailabl Cookie Hernandez RN MS YARN SKEINS EXAMINER CDE Unavailable Unavailabl e Cookie Weinstein RN MS YARN SKEINS EXAMINER CDE Unavailable UnavailCookie Delgado RN MS YARN SKEINS EXAMINER CDE Unavailable UnavailCookie Delgado RN MS YARN SKEINS EXAMINER CDE Unavailable UnavailCookie Delgado RN MS YARN SKEINS EXAMINER CDE Unavailable UnavailCookie Delgado RN MS YARN SKEINS EXAMINER CDE Unavailable UnavailCookie Delgado RN MS YARN SKEINS EXAMINER CDE Unavailable UnavailCookie Delgado RN MS YARN SKEINS EXAMINER CDE Unavailable Unavailabl e AGEN, M MATT CONTRACT LEAD Unavailable Unavailable AGEN, M MATT CONTRACT LEAD Unavailable Unavailable AGEN, M MATT CONTRACT LEAD Unavailable Unavailable AGEN, M MATT CONTRACT LEAD Unavailable Unavailable AGEN, M MATT CONTRACT LEAD Unavailable Unavailable AGEN, M MATT CONTRACT LEAD Unavailable Unavailable AGEN, M MATT CONTRACT LEAD Unavailable Unavailable AGEN, M MATT CONTRACT LEAD Unavailable Unavailable AGEN, M MATT CONTRACT LEAD Unavailable Unavailable AGEN, M MATT CONTRACT LEAD Unavailable Unavailable AGEN, M MATT CONTRACT LEAD Unavailable Unavailable AGEN, M MATT CONTRACT LEAD Unavailable Unavailable AGEN, M MATT CONTRACT LEAD Unavailable Unavailable AGEN, M MATT CONTRACT LEAD Unavailable Unavailable AGEN, M MATT CONTRACT LEAD Unavailable Unavailable AGEN, M MATT CONTRACT LEAD Unavailable Unavailable AGEN, M MATT CONTRACT LEAD Unavailable Unavailable AGEN, M MATT CONTRACT LEAD Unavailable Unavailable AGEN, M MATT CONTRACT LEAD Unavailable Unavailable AGEN, M MATT CONTRACT LEAD Unavailable Unavailable AGEN, M MATT CONTRACT LEAD Unavailable Unavailable AGEN, M MATT CONTRACT LEAD Unavailable Unavailable AGEN, M MATT CONTRACT LEAD Unavailable Unavailable KERRIE, YANPING Unavailable Unavailable ISREAL, L IMELDA CONTRACT LEAD Unavailable Unavailable ISREAL, L IMELDA CONTRACT LEAD Unavailable Unavailable ISREAL, L IMELDA CONTRACT LEAD Unavailable Unavailable ISREAL, L IMELDA CONTRACT LEAD Unavailable Unavailable ISREAL, L IMELDA CONTRACT LEAD Unavailable Unavailable ISREAL, L IMELDA CONTRACT LEAD Unavailable Unavailable ISREAL, L IMELDA CONTRACT LEAD Unavailable Unavailable ISREAL, L IMELDA CONTRACT LEAD Unavailable Unavailable ISREAL, L IMELDA CONTRACT LEAD Unavailable Unavailable ISREAL, L IMELDA CONTRACT LEAD Unavailable Unavailable ISREAL, L IMELDA CONTRACT LEAD Unavailable Unavailable ISREAL, L IMELDA CONTRACT LEAD Unavailable Unavailable ISREAL, L IMELDA CONTRACT LEAD Unavailable Unavailable ISREAL, L IMELDA CONTRACT LEAD Unavailable Unavailable ISREAL, L IMELDA CONTRACT LEAD Unavailable Unavailable ISREAL, L IMELDA CONTRACT LEAD Unavailable Unavailable ISREAL, L IMELDA CONTRACT LEAD Unavailable Unavailable ISREAL, L IMELDA CONTRACT LEAD Unavailable Unavailable ISREAL, L IMELDA CONTRACT LEAD Unavailable Unavailable ISREAL, L IMELDA CONTRACT LEAD Unavailable Unavailable ISREAL, L IMELDA CONTRACT LEAD Unavailable Unavailable ISREAL, L IMELDA CONTRACT LEAD Unavailable Unavailable ISREAL, L IMELDA CONTRACT LEAD Unavailable Unavailable ISREAL, L IMELDA CONTRACT LEAD Unavailable Unavailable ISREAL, L IMELDA CONTRACT LEAD Unavailable Unavailable ISREAL, L IMELDA CONTRACT LEAD Unavailable Unavailable ISREAL, L IMELDA CONTRACT LEAD Unavailable Unavailable ISREAL, L IMELDA CONTRACT LEAD Unavailable Unavailable ISREAL, L IMELDA CONTRACT LEAD Unavailable Unavailable ISREAL, L IMELDA CONTRACT LEAD Unavailable Unavailable ISREAL, L IMELDA CONTRACT LEAD Unavailable Unavailable ISREAL, L IMELDA CONTRACT LEAD Unavailable Unavailable ISREAL, L IMELDA CONTRACT LEAD Unavailable Unavailable ISREAL, L IMELDA CONTRACT LEAD Unavailable Unavailable ISREAL, L IMELDA CONTRACT LEAD Unavailable Unavailable Guillermo, I Christy CONTRACT LEAD Unavailable Unavailable Guillermo, I Christy CONTRACT LEAD Unavailable Unavailable Guillermo, I Christy CONTRACT LEAD Unavailable Unavailable Guillermo, I Christy CONTRACT LEAD Unavailable Unavailable Guillermo, I Christy CONTRACT LEAD Unavailable Unavailable Guillermo, I Christy CONTRACT LEAD Unavailable Unavailable Guillermo, I Christy CONTRACT LEAD Unavailable Unavailable Guillermo, I Christy CONTRACT LEAD Unavailable Unavailable Guillermo, I Christy CONTRACT LEAD Unavailable Unavailable Guillermo, I Christy CONTRACT LEAD Unavailable Unavailable Guillermo, I Christy CONTRACT LEAD Unavailable Unavailable Guillermo, I Christy CONTRACT LEAD Unavailable Unavailable Guillermo, I Christy CONTRACT LEAD Unavailable Unavailable Guillermo, I Christy CONTRACT LEAD Unavailable Unavailable Guillermo, I Christy CONTRACT LEAD Unavailable Unavailable Guillermo, I Christy CONTRACT LEAD Unavailable Unavailable Guillermo, I Christy CONTRACT LEAD Unavailable Unavailable Guillermo, I Christy CONTRACT LEAD Unavailable Unavailable Guillermo, I Christy CONTRACT LEAD Unavailable Unavailable Guillermo, I Christy CONTRACT LEAD Unavailable Unavailable Guillermo, I Christy CONTRACT LEAD Unavailable Unavailable Guillermo, I Christy CONTRACT LEAD Unavailable Unavailable Guillermo, I Christy CONTRACT LEAD Unavailable Unavailable Guillermo, I Christy CONTRACT LEAD Unavailable Unavailable Guillermo, I Christy CONTRACT LEAD Unavailable Unavailable Guillermo, I Christy CONTRACT LEAD Unavailable Unavailable Guillermo, I Christy CONTRACT LEAD Unavailable Unavailable Guillermo, I Christy CONTRACT LEAD Unavailable Unavailable Guillermo, I Christy CONTRACT LEAD Unavailable Unavailable Guillermo, I Christy CONTRACT LEAD Unavailable Unavailable Guillermo, I Christy CONTRACT LEAD Unavailable Unavailable Guillermo, I Christy CONTRACT LEAD Unavailable Unavailable Guillermo, I Christy CONTRACT LEAD Unavailable Unavailable Guillermo, I Christy CONTRACT LEAD Unavailable Unavailable Guillermo, I Christy CONTRACT LEAD Unavailable Unavailable Guillermo, I Christy CONTRACT LEAD Unavailable Unavailable Guillermo, I Christy CONTRACT LEAD Unavailable Unavailable Guillermo, I Christy CONTRACT LEAD Unavailable Unavailable Guillermo, I Christy CONTRACT LEAD Unavailable Unavailable Guillermo, I Christy CONTRACT LEAD Unavailable Unavailable Guillermo, I Christy CONTRACT LEAD Unavailable Unavailable Guillermo, I Christy CONTRACT LEAD Unavailable Unavailable Guillermo, I Christy CONTRACT LEAD Unavailable Unavailable Guillermo, I Christy CONTRACT LEAD Unavailable Unavailable Guillermo, I Christy CONTRACT LEAD Unavailable Unavailable Guillermo, I Christy CONTRACT LEAD Unavailable Unavailable Guillermo, I Christy CONTRACT LEAD Unavailable Unavailable Guillermo, I Christy CONTRACT LEAD Unavailable Unavailable Guillermo, I Christy CONTRACT LEAD Unavailable Unavailable Guillermo, I Christy CONTRACT LEAD Unavailable Unavailable Guillermo, I Christy CONTRACT LEAD Unavailable Unavailable Guillermo, I Christy CONTRACT LEAD Unavailable Unavailable Guillermo, I Christy CONTRACT LEAD Unavailable Unavailable Guillermo, I Christy CONTRACT LEAD Unavailable Unavailable Guillermo, I Christy CONTRACT LEAD Unavailable Unavailable Guillermo, I Christy CONTRACT LEAD Unavailable Unavailable Guillermo, I Christy CONTRACT LEAD Unavailable Unavailable Guillermo, I Christy CONTRACT LEAD Unavailable Unavailable Guillermo, I Christy CONTRACT LEAD Unavailable Unavailable Guillermo, I Christy CONTRACT LEAD Unavailable Unavailable Guillermo, I Christy CONTRACT LEAD Unavailable Unavailable Guillermo, I Christy CONTRACT LEAD Unavailable Unavailable Guillermo, I Christy CONTRACT LEAD Unavailable Unavailable Guillermo, I Christy CONTRACT LEAD Unavailable Unavailable Guillermo, I Christy CONTRACT LEAD Unavailable Unavailable Geloff, A Milana Unavailable Unavailable Geloff, A Milana Unavailable Unavailable Geloff, A Milana Unavailable Unavailable Geloff, A Milana Unavailable Unavailable Geloff, A Milana Unavailable Unavailable Geloff, A Milana Unavailable Unavailable Geloff, A Milana Unavailable Unavailable Geloff, A Milana Unavailable Unavailable Re-disclosure Warning The records that you are about to access may contain information from federally-assisted alcohol or drug abuse programs. If such information is present, then the following federally mandated warning applies: This information has been disclosed to you from records protected by federal confidentiality rules (42 CFR part 2). The federal rules prohibit you from making any further disclosure of this information unless further disclosure is expressly permitted by the written consent of the person to whom it pertains or as otherwise permitted by 42 CFR part 2. A general authorization for the release of medical or other information is NOT sufficient for this purpose. The Federal rules restrict any use of the information to criminally investigate or prosecute any alcohol or drug abuse patient.The records that you are about to access may contain highly sensitive health information, the redisclosure of which is protected by Article 27-F of the [facility] Public Health law. If you continue you may have access to information: Regarding HIV / AIDS; Provided by facilities licensed or operated by the [facility] Office of Mental Health; or Provided by the [facility] Office for People With Developmental Disabilities. If such information is present, then the following [facility] mandated warning applies: This information has been disclosed to you from confidential records which are protected by state law. State law prohibits you from making any further disclosure of this information without the specific written consent of the person to whom it pertains, or as otherwise permitted by law. Any unauthorized further disclosure in violation of state law may result in a fine or mcc sentence or both. A general authorization for the release of medical or other information is NOT sufficient authorization for further disc losure. Advance Directives Directive Description Home Care Associate Answering Service Operator Status Observation Descr iption Data Source(s) Ebola Screening Performed completed Ebol a Screening Performed [facility] ([facility]) Note: Within the last month, have you tr aveled outside of the [place]? -NO packet given Pt Bill of Rights, Priv Prac, Ad Dir completed packet given Pt Bill of Rights, Priv Prac, Ad Dir [facility] Note: Pt declined AD packet Allergies and Adverse Reactions Type Description Substance Reaction Status Data Source(s ) Drug Class NO KNOWN ALLERGIES NO KNOWN ALLERGIES [facility] Allergy to substance No Known Allergies No known allergies (situation ) [facility] ([facility]) Allergy to substance No Known Allergies No known allergies (situation ) [facility] ([facility]) Allergy to substance No Known Allergies No known allergies (situation ) [facility] ([facility]) Allergy to substance No Known Allergies No known allergies (situation ) [facility] ([facility]) Allergy to substance No Known Allergies No known allergies (situation ) [facility] ([facility]) Allergy to substance No Known Allergies No known allergies (situation ) [facility] ([facility]) Encounters Encounter Providers Location Date Indications Data Source(s ) Outpatient Attender: JUNITO SY 09/03/2021 12:00:[address] [facility] Outpatient Attender: Milana Nunes 04/26/2021 12:00:[address] [facility] Outpatient Attender: Milana Nunes 01/24/2021 12:00:[address] 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 [facility] 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 (TV_Virtual) Virtual Enc [facility] Health Visit [address] [place] [address] 10/11/2020 12:00:00 AM EST eCW1 ([facility]) Outpatient [address] [facility] [address] 09/19/2020 12:00:00 AM EST eCW1 ([facility]) Unknown [address] [facility] [address] 09/17/2020 12:00:00 AM EST eCW1 ([facility]) Outpatient [address] [facility] [id number] 09/04/2020 12:00:00 AM EST eCW1 ([facility]) Unknown [address] [facility] [address] 09/04/2020 12:00:00 AM EST eCW1 ([facility]) Outpatient Attender: Milana Nunes 08/17/2020 12:00:00 AM [facility] Outpatient Attender: Milana Nunes 08/01/2020 12:00:00 AM [facility] Unknown<td ID="encounterTypeDescriptionI D0">No Show-No Call</td><td>Cristina Shukla NP</td><td></td><td>07/26/2020</td><td></td> Attender: Cristina CALLESP 07/26/2020 11:09:00 AM EDT - 07/26/2020 11:59:00 PM EDT [facility] ([facility]) Unknown<td ID="encounterTypeDescriptionI D1">Correspondence</td><td>Cristina Shukla NP</td><td></td><td>07/13/2020</td><td></td> Attender: Cristina CALLESP 07/13/2020 06:44:00 PM EDT - 07/13/2020 11:59:00 PM EDT [facility] ([facility]) Outpatient<td ID="encounterTypeDescripti onID2">Medication Order</td><td>Cristina Shukla NP</td><td></td><td>07/10/2020</td><td></td> Attender: Cristina HO 07/10/2020 06:26:00 PM EDT - 07/10/2020 11:59:00 PM EDT [facility] ([facility]) Unknown<td ID="encounterTypeDescriptionI D3">[Patient Encounter]</td><td>Cristina Shukla NP</td><td></td><td>06/27/2020</td><td></td> Attender: Cristina HO 06/27/2020 02:47:00 PM EDT - 06/27/2020 11:59:00 PM EDT [facility] Unknown<td ID="encounterTypeDescriptionI D4">Referral Order</td><td>Cristina Shukla NP</td><td></td><td>06/15/2020</td><td></td> Attender: Cristina HO 06/15/2020 07:27:00 AM EDT - 06/15/2020 11:59:00 PM EDT [facility]) Outpatient Attender: Milana Nunes 06/15/2020 12:00:00 AM EDT [facility] Outpatient<td ID="encounterTypeDescripti onID5">Medication Order</td><td>Cristina Shukla NP</td><td></td><td>06/14/2020</td><td></td> Attender: Cristina HO 06/14/2020 04:21:00 PM EDT - 06/14/2020 11:59:00 PM EDT [facility]) Outpatient Attender: Cristina HO 06/14/2020 01:1 0:00 PM EDT STAT - R10.9 abd pain, bloating, abn weight loss [facility] STAT - R10.9 abd pain, bloating, abn bill ght loss Outpatient<td ID="encounterTypeDescripti onID6">Acute Follow-up Well</td><td>Cristina Shukla NP</td><td>[facility]</td><td>06/12/2020</td><td><content ID="encounterDiagnosisID6-0">Constipation</content>, <content ID="encounterDiagnosisID6-1">Abdominal Pain</content>, <content ID="encounterDiagnosisID6-2">Weight Loss</content>, <content ID="encounterDiagnosisID6-3">Elevated Liver Enzymes</content>, <content ID="encounterDiagnosisID6-4">Vomiting</content>, <content ID="encounterDiagnosisID6-5">Diabetes Mellitus Type 1</content></td> Attender: Cristina HO [facility] 06/12/2020 04:00:00 PM EDT - 06/12/2020 04:48:39 PM EDT VomitingElevated Liver EnzymesWeight Los sAbdominal PainConstipationVomitingElevated Liver EnzymesWeight LossAbdominal PainConstipationVomitingElevated Liver EnzymesWeight LossAbdominal PainConstipationDiabetes Mellitus Type 1Diabetes Mellitus Type 1Diabetes Mellitus Type 1 [facility] ([facility]) Vomiting Elevated Liver Enzymes Weight Loss Abdominal Pain Constipation Vomiting Elevated Liver Enzymes Weight Loss Abdominal Pain Constipation Vomiting Elevated Liver Enzymes Weight Loss Abdominal Pain Constipation Diabetes Mellitus Type 1 Diabetes Mellitus Type 1 Diabetes Mellitus Type 1 Outpatient<td ID="encounterTypeDescripti onID7">Acute Telehealth FaceTime</td><td>Imelda Bach NP</td><td>[facility]</td><td>06/07/2020</td><td><content ID="encounterDiagnosisID7-0"> Candidiasis Oral Thrush</content></td> Attender: IMELDA BACH NP [facility] 06/07/2020 02:30:00 PM EDT - 06/07/2020 03:25:58 PM ED T Candidiasis Oral ThrushCandidiasis Oral ThrushCandidiasis Oral ThrushCandidiasis Oral Thrush [facility] ([facility]) Candidiasis Oral Thrush Candidiasis Oral Thrush Candidiasis Oral Thrush Candidiasis Oral Thrush Outpatient Attender: IMELDA BACH NP 05/30/2020 03:07:0 0 PM EDT Xray Lab [facility] Xray Lab Outpatient<td ID="encounterTypeDesheri onID8">Acute L2</td><td>Imelda Bach NP</td><td>[facility]</td><td>05/30/2020</td><td><content ID="encounterDiagnosisID8-0">Abdominal Pain</content>, <content ID="encounterDiagnosisID8-1">Vomiting</content>, <content ID="encounterDiagnosisID8-2">Weight Loss</content>, <content ID="encounterDiagnosisID8-3">Constipation</content>, <content ID="encounterDiagnosisID8-4">Elevated Liver Enzymes</content>, <content ID="encounterDiagnosisID8-5">Urinary Tract Infection Acute</content></td> Attender: IMELDA BACH NP [facility] 05/30/2020 02:05:00 PM ED T - 05/30/2020 04:50:00 PM EDT Urinary Tract Infection AcuteElevated Li warren EnzymesConstipationWeight LossVomitingAbdominal PainUrinary Tract Infection AcuteElevated Liver EnzymesConstipationWeight LossVomitingAbdominal PainUrinary Tract Infection AcuteElevated Liver EnzymesConstipationWeight LossVomitingAbdominal PainUrinary Tract Infection AcuteElevated Liver EnzymesConstipationWeight LossVomitingAbdominal PainUrinary Tract Infection AcuteElevated Liver EnzymesConstipationWeight LossVomitingAbdominal Pain [facility] ([facility]) Urinary Tract Infection Acute Elevated Liver Enzymes Constipation Weight Loss Vomiting Abdominal Pain Urinary Tract Infection Acute Elevated Liver Enzymes Constipation Weight Loss Vomiting Abdominal Pain Urinary Tract Infection Acute Elevated Liver Enzymes Constipation Weight Loss Vomiting Abdominal Pain Urinary Tract Infection Acute Elevated Liver Enzymes Constipation Weight Loss Vomiting Abdominal Pain Urinary Tract Infection Acute Elevated Liver Enzymes Constipation Weight Loss Vomiting Abdominal Pain Outpatient Attender: MATT ENCARNACION NPReferrer: Cristina Sullivan 04/19/2020 12:00:[address] [facility] Outpatient Attender: Milana Nunes 03/02/2020 12:00:[address] [facility] Outpatient Attender: LUTHER EUGENE [id number] 02/29/2020 03:01:[address] [facility] Unknown<td ID="encounterTypeDescriptionI D9">[Patient Encounter]</td><td>Christy Li NP</td><td></td><td>02/02/2020</td><td></td> Attender: Christy Li NP 02/02/2020 01:06:00 PM EDT - 02/02/2020 11:59:00 PM EDT [facility] Unknown<td ID="encounterTypeDescriptionI D10">[Patient Encounter]</td><td>Cristina Shukla NP</td><td></td><td>01/20/2020</td><td></td> Attender: Cristina HO 01/20/2020 08:53:00 AM EDT - 01/20/2020 11:59:00 PM EDT [facility] ([facility]) Outpatient<td ID="encounterTypeDescripti onID11">Primary Care Telehealth FaceTime</td><td>Cristina Shukla NP</td><td>[facility]</td><td>01/19/2020</td><td><content ID="[id number] 0">Diabetes Mellitus Type 1</content>, <content ID="[id number] 1">Hyperlipidemia</content>, <content ID="[id number]"> Depression</content></td> Attender: Cristina HO [facility] 01/19/20 10:40:00 AM EDT - 01/19/2020 11:08:45 AM EDT HyperlipidemiaHyperlipidemiaHyperlipidemiaHyperlipidemiaHyperlipidemiaHyperlipid emiaDiabetes Mellitus Type 1Diabetes Mellitus Type 1Diabetes Mellitus Type 1Diabetes Mellitus Type 1Diabetes Mellitus Type 1Diabetes Mellitus Type 1DepressionDepressionDepressionDepressionDepressionDepression [facility] ([facility]) Hyperlipidemia Hyperlipidemia Hyperlipidemia Hyperlipidemia Hyperlipidemia Hyperlipidemia Diabetes Mellitus Type 1 Diabetes Mellitus Type 1 Diabetes Mellitus Type 1 Diabetes Mellitus Type 1 Diabetes Mellitus Type 1 Diabetes Mellitus Type 1 Depression Depression Depression Depression Depression Depression Unknown<td ID="encounterTypeDescriptionI D12">[Patient Encounter]</td><td>Alem Weinstein NP</td><td></td><td>11/18/2019</td><td></td> Attender: Alem Weinstein RN MS [employer] CDE 11/18/2019 01:50:00 PM EST - 11/18/2019 11:59:00 PM EST [facility] ([facility]) Immunizations Vaccine Date Status Description Data Source(s) influenza, recombinant, quadrIvalent,injectable, prese rvative free 09/04/2020 03:56:00 PM EST completed eCW1 (formerly [facility]) influenza, recombinant, quadrIvalent,injectable, prese rvative free 09/04/2020 03:56:00 PM EST completed eCW1 (formerly [facility]) influenza, recombinant, quadrIvalent,injectable, prese rvative free 09/04/2020 03:56:00 PM EST completed eCW1 (formerly [facility]) influenza, recombinant, quadrIvalent,injectable, prese rvative free 09/04/2020 03:56:00 PM EST completed eCW1 (formerly [facility]) influenza, recombinant, quadrIvalent,injectable, prese rvative free 09/04/2020 03:56:00 PM EST completed eCW1 (formerly [facility]) influenza, recombinant, quadrIvalent,injectable, prese rvative free 09/04/2020 03:56:00 PM EST completed eCW1 (formerly [facility]) influenza, recombinant, quadrIvalent,injectable, prese rvative free 09/04/2020 03:56:00 PM EST completed eCW1 (formerly [facility]) Medications Medication Brand Name Start Date Product Form Dose Route Admi nistrative Instructions Pharmacy Instructions Status Indications Reaction Description Data Source(s) FreeStyle Lite Test In Vitro Strip (glucose blood) [id number] 10/19/2020 12:00:00 AM EST active Type 1 diabetes mellitus with hyperglycemia Use as instructed to check blood glucose 6 times daily. Dx E10.65 [facility] Type 1 diabetes mellitus with hyperglyce sara FreeStyle Lancets [id number] 10/19/2020 12:00:00 AM EST 1 {each } Other active Type 1 diabetes mellitus with hyperglycemia Use as directed. To check blood glucose 6 times daily. Dx E10.65 [facility] Type 1 diabetes mellitus with hyperglyce sara Baqsimi One Pack 3 MG/DOSE Nasal Powder (Glucagon) 1478-9156 [id number] 10/19/2020 12:00:00 AM EST active Type 1 diabetes mellitus with hyperglycemia Use as instructed to treat low blood glucose. Dx E10.65 [facility] Type 1 diabetes mellitus with hyperglyce sara Admelog SoloStar 100 UNIT/ML Subcutaneous Solution Pen-injec tor 5128-2058-20 10/19/2020 12:00:00 AM EST act dalila Type 1 diabetes mellitus with hyperglycemia USE DIRECTED 10 TO 12 UNI TS THREE TIMES A DAY. MAXIMUM DAILY DOSE 50 UNITS. [facility] Type 1 diabetes mellitus with hyperglyce sara Finesse Banda 100 UNIT/ML Subcutaneous Solution Pen-injec tor 4823-4444-37 10/19/2020 12:00:00 AM EST act dalila Type 1 diabetes mellitus with hyperglycemia INJECT 28 UNITS UNDER THE SK IN NIGHTLY. MAXIMUM DAILY DOSE 55 UNITS [facility] Type 1 diabetes mellitus with hyperglyce sara Lactulose 667 MG/ML Oral Solution Lactulose 10 GM/15ML Lactu lose 10 GM/15ML 09/06/2020 12:00:00 AM EST active Lactulose 10 GM/15ML eCW1 ([facility]) Lactulose 667 MG/ML Oral Solution Lactulose 10 GM/15ML Lactu lose 10 GM/15ML 09/06/2020 12:00:00 AM EST active Lactulose 10 GM/15ML eCW1 ([facility]) Lactulose 667 MG/ML Oral Solution Lactulose 10 GM/15ML Lactu lose 10 GM/15ML 09/06/2020 12:00:00 AM EST active Lactulose 10 GM/15ML eCW1 ([facility]) Lactulose 667 MG/ML Oral Solution Lactulose 10 GM/15ML Lactu lose 10 GM/15ML 09/06/2020 12:00:00 AM EST active Lactulose 10 GM/15ML eCW1 ([facility]) Lactulose 667 MG/ML Oral Solution Lactulose 10 GM/15ML Lactu lose 10 GM/15ML 09/06/2020 12:00:00 AM EST active Lactulose 10 GM/15ML eCW1 ([facility]) Lactulose 667 MG/ML Oral Solution Lactulose 10 GM/15ML Lactu lose 10 GM/15ML 09/06/2020 12:00:00 AM EST active Lactulose 10 GM/15ML eCW1 ([facility]) Lactulose 667 MG/ML Oral Solution Lactulose 10 GM/15ML Lactu lose 10 GM/15ML 09/06/2020 12:00:00 AM EST active Lactulose 10 GM/15ML eCW1 ([facility]) 21 DAY Ethinyl Estradiol 0.484625 MG/HR / Etonogestrel 0.005 MG/HR Vaginal Ring [NuvaRing] NuvaRing 0.12-0.015 MG/24HR NuvaRing 0.12-0.015 MG/24HR 09/04/2020 12:00:00 AM EST active NuvaRing 0.12-0.015 MG/24HR eCW1 ([facility]) linaclotide 0.145 MG Oral Capsule [Linzess] Linzess 145 MCG Linzess 145 MCG 09/04/2020 12:00:00 AM EST active Linzess 145 MCG eCW1 ([facility]) linaclotide 0.145 MG Oral Capsule [Linzess] Linzess 145 MCG Linzess 145 MCG 09/04/2020 12:00:00 AM EST active Linzess 145 MCG eCW1 ([facility]) linaclotide 0.145 MG Oral Capsule [Linzess] Linzess 145 MCG Linzess 145 MCG 09/04/2020 12:00:00 AM EST active Linzess 145 MCG eCW1 ([facility]) 21 DAY Ethinyl Estradiol 0.400957 MG/HR / Etonogestrel 0.005 MG/HR Vaginal Ring [NuvaRing] NuvaRing 0.12-0.015 MG/24HR NuvaRing 0.12-0.015 MG/24HR 09/04/2020 12:00:00 AM EST active NuvaRing 0.12-0.015 MG/24HR eCW1 ([facility]) linaclotide 0.145 MG Oral Capsule [Linzess] Linzess 145 MCG Linzess 145 MCG 09/04/2020 12:00:00 AM EST active Linzess 145 MCG eCW1 ([facility]) linaclotide 0.145 MG Oral Capsule [Linzess] Linzess 145 MCG Linzess 145 MCG 09/04/2020 12:00:00 AM EST active Linzess 145 MCG eCW1 ([facility]) 21 DAY Ethinyl Estradiol 0.179763 MG/HR / Etonogestrel 0.005 MG/HR Vaginal Ring [NuvaRing] NuvaRing 0.12-0.015 MG/24HR NuvaRing 0.12-0.015 MG/24HR 09/04/2020 12:00:00 AM EST active NuvaRing 0.12-0.015 MG/24HR eCW1 ([facility]) linaclotide 0.145 MG Oral Capsule [Linzess] Linzess 145 MCG Linzess 145 MCG 09/04/2020 12:00:00 AM EST suspended Linzess 145 MCG eCW1 ([facility]) 21 DAY Ethinyl Estradiol 0.990421 MG/HR / Etonogestrel 0.005 MG/HR Vaginal Ring [NuvaRing] NuvaRing 0.12-0.015 MG/24HR NuvaRing 0.12-0.015 MG/24HR 09/04/2020 12:00:00 AM EST active NuvaRing 0.12-0.015 MG/24HR eCW1 ([facility]) 21 DAY Ethinyl Estradiol 0.042605 MG/HR / Etonogestrel 0.005 MG/HR Vaginal Ring [NuvaRing] NuvaRing 0.12-0.015 MG/24HR NuvaRing 0.12-0.015 MG/24HR 09/04/2020 12:00:00 AM EST active NuvaRing 0.12-0.015 MG/24HR eCW1 ([facility]) linaclotide 0.145 MG Oral Capsule [Linzess] Linzess 145 MCG Linzess 145 MCG 09/04/2020 12:00:00 AM EST active Linzess 145 MCG eCW1 ([facility]) 21 DAY Ethinyl Estradiol 0.628357 MG/HR / Etonogestrel 0.005 MG/HR Vaginal Ring [NuvaRing] NuvaRing 0.12-0.015 MG/24HR NuvaRing 0.12-0.015 MG/24HR 09/04/2020 12:00:00 AM EST active NuvaRing 0.12-0.015 MG/24HR eCW1 ([facility]) 21 DAY Ethinyl Estradiol 0.045029 MG/HR / Etonogestrel 0.005 MG/HR Vaginal Ring [NuvaRing] NuvaRing 0.12-0.015 MG/24HR NuvaRing 0.12-0.015 MG/24HR 09/04/2020 12:00:00 AM EST active NuvaRing 0.12-0.015 MG/24HR eCW1 ([facility]) 100 unit/mL (3 mL) 07/10/2020 12:00:00 AM EDT insulin pen 15 INJECT 25 UNITS UNDER THE SKIN EACH NIGHT DAYS SUPPLY = 55 INJECT 25 UNITS UNDER THE SKIN EACH NIGHT DAYS SUPPLY = 55 SOLD: 07/10/2020 [facility] Basaglar KwikPen 100 UNIT/ML Subcutaneous Solution Pen -injector Basaglar KwikPen 100 UNIT/ML Subcutaneous Solution Pen-injector 07/10/2020 12:00:00 AM EDT active Sensor 3 ML insulin glargine 100 UNT/ML Pen Injector [Basaglar] [facility] ([facility]) 100 unit/mL 06/15/2020 12:00:00 AM EDT insulin pen 15 USE DIRECTED 10 TO 12 UNITS THREE TIMES A DAY MAXIMUM DAILY DOSE = 50 UNITS USE DIRECTED 10 TO 12 UNITS THREE TIMES A DAY MAXIMUM DAILY DOSE = 50 UNITS SOLD: 07/10/2020 [facility] 100 unit/mL 06/15/2020 12:00:00 AM EDT insulin pen 15 USE DIRECTED 10 TO 12 UNITS THREE TIMES A DAY MAXIMUM DAILY DOSE = 50 UNITS USE DIRECTED 10 TO 12 UNITS THREE TIMES A DAY MAXIMUM DAILY DOSE = 50 UNITS SOLD: 06/17/2020 [facility] FreeStyle Lite Device [id number] 06/14/2020 12:00:00 AM EDT active Type 1 diabetes mellitus with hyperglycemia Use as dir ected. To check blood glucose 6 times daily. Dx E10.65 [facility] Type 1 diabetes mellitus with hyperglyce sara [facility] 8.6 MG Oral Tablet [facility] 8.6 MG Oral Tablet 12:00:00 AM EDT active [facility] ([facility]) Admelog SoloStar 100 UNIT/ML SC SOPN Admelog SoloStar 100 UN IT/ML SC SOPN 06/14/2020 12:00:00 AM EDT active 3 ML insulin lispro 100 UNT/ML Pen Injector [Admelog] [facility] ([facility]) [facility] 8.6 MG Oral Tablet [facility] 8.6 MG Oral Tablet 12:00:00 AM EDT aborted [facility] ([facility]) 8.6 mg 06/14/2020 12:00:00 AM EDT tablet 120 TAKE TWO TABLETS BY MOUTH TWICE A DAY TAKE TWO TABLETS BY MOUTH TWICE A DAY SOLD: 06/17/2020 [facility] Admelog SoloStar 100 UNIT/ML Subcutaneous Solution Pen -injector Admelog SoloStar 100 UNIT/ML Subcutaneous Solution Pen-injector 06/14/2020 12:00:00 AM EDT active 3 ML insulin lispro 100 UNT/ML Pen Injector [Admelog] [facility] ([facility]) BLOOD SUGAR DIAGNOSTIC 06/13/2020 12:00:00 AM EDT strip 300 USE DIRECTED TO TEST BLOOD SUGAR 6 TO 8 TIMES DAILY AND NEEDED MAXIMUM DAILY DOSE = 9 USE DIRECTED TO TEST BLOOD SUGAR 6 TO 8 TIMES DAILY AND NEEDED MAXIMUM DAILY DOSE = 9 SOLD: 07/10/2020 [facility] BLOOD SUGAR DIAGNOSTIC 06/13/2020 12:00:00 AM EDT strip 300 USE DIRECTED TO TEST BLOOD SUGAR 6 TO 8 TIMES DAILY AND NEEDED MAXIMUM DAILY DOSE = 9 USE DIRECTED TO TEST BLOOD SUGAR 6 TO 8 TIMES DAILY AND NEEDED MAXIMUM DAILY DOSE = 9 SOLD: 06/13/2020 [facility] 31 gauge x 3/16" 06/12/2020 12:00:00 AM EDT needle 100 USE DIRECTED WITH LANTUS AND NOVOLOG MAXIMUM DAILY DOSE = 4 USE DIRECTED WITH LANTUS AND NOVOLOG MAXIMUM DAILY DOSE = 4 SOLD: 07/10/2020 [facility] 3 ML Insulin, Aspart, Human 100 UNT/ML P en Injector [NovoLog] NovoLOG FlexPen 100 UNIT/ML Subcutaneous Solution Pen-injector NovoLOG FlexPen 100 UNIT/ML Subcutaneous Solution Pen-injector 06/12/2020 12:00:00 AM EDT active 3 ML insulin aspart, human 100 UNT/ML Pe n Injector [NovoLog] [facility] ([facility]) FreeStyle Test In Vitro Strip FreeStyle Test In Vitro Strip 06/12/2020 12:00:00 AM EDT active FreeStyle Test [facility] ([facility]) Basaglar KwikPen 100 UNIT/ML Subcutaneous Solution Pen -injector Basaglar KwikPen 100 UNIT/ML Subcutaneous Solution Pen-injector 06/12/2020 12:00:00 AM EDT aborted Sensor 3 ML in sulin glargine 100 UNT/ML Pen Injector [Basaglar] [facility] ([facility]) Comfort EZ Pen Galva 31G X 5 MM Miscellaneous Comfor t EZ Pen Galva 31G X 5 MM Miscellaneous 06/12/2020 12:00:00 AM EDT a ctive Comfort EZ Pen Galva [facility] ([facility]) 31 gauge x 3/16" 06/12/2020 12:00:00 AM EDT needle 100 USE DIRECTED WITH LANTUS AND NOVOLOG MAXIMUM DAILY DOSE = 4 USE DIRECTED WITH LANTUS AND NOVOLOG MAXIMUM DAILY DOSE = 4 SOLD: 06/13/2020 [facility] 100 unit/mL (3 mL) 06/12/2020 12:00:00 AM EDT insulin pen 15 INJECT 25 UNITS ONCE DAILY MAXIMUM DAILY DOSE = 30 UNITS ACTUAL D/S 50 INJECT 25 UNITS ONCE DAILY MAXIMUM DAILY DOSE = 30 UNITS ACTUAL D/S 50 SOLD: 06/13/2020 [facility] 100,000 unit/mL 06/07/2020 12:00:00 AM EDT suspension 280 SWISH AND SPIT 5 ML BY MOUTH FOUR TIMES A DAY FOR 14 DAYS SWISH AND SPIT 5 ML BY MOUTH FOUR TIMES A DAY FOR 14 DAYS SOLD: 06/07/2020 [facility] Nystatin 515018 UNT/ML Oral Suspension N ystatin 431776 UNIT/ML Mouth/Throat Suspension Nystatin 403974 UNIT/ML Mouth/Throat Suspension 2019 12:00:00 AM EDT completed nystatin 47389 0 UNT/ML Oral Suspension [facility] ([facility]) Sulfamethoxazole 800 MG / Trimethoprim 160 MG Oral Tab let 800-160 mg SULFAMETHOXAZOLE/TRIMETHOPRIM 05/31/2020 12:00:00 AM EDT tablet 20 TAKE ONE TABLET BY MOUTH TWICE A DAY TAKE ONE TABLET BY MOUTH TWICE A DAY SOLD: 05/31/2020 [facility] Sulfamethoxazole 800 MG / Trimethoprim 1 60 MG Oral Tablet [Bactrim] Bactrim DS 800-160 MG Oral Tablet Bactrim DS 800-160 MG Oral Tablet 05/31/2020 12:00:00 AM EDT 1 completed sulfam ethoxazole 800 MG / trimethoprim 160 MG Oral Tablet [Bactrim] [facility] ([facility]) FreeStyle Test In Vitro Strip FreeStyle Test In Vitro Strip 01/19/2020 12:00:00 AM EDT aborted FreeStyle Test G [facility] ([facility]) Blood Glucose Monitor System w/Device Kit Blood Glucos e Monitor System w/Device Kit 01/19/2020 12:00:00 AM EDT active Blood Glucose Monitor System [facility] ([facility]) 21 DAY Ethinyl Estradiol 0.841224 MG/HR / Etonogestrel 0.005 MG/HR Vaginal Ring [NuvaRing] NuvaRing 0.12-0.015 MG/24HR Vaginal Ring NuvaRing 0.12-0.015 MG/24HR Vaginal Ring 01/19/2020 12:00:00 AM EDT abort ed 21 DAY ethinyl estradiol 0.473454 MG/HR / etonogestrel 0.005 MG/HR Vaginal System [NuvaRing] [facility] ([facility]) 3 ML Insulin, Aspart, Human 100 UNT/ML P en Injector [NovoLog] NovoLOG FlexPen 100 UNIT/ML Subcutaneous Solution Pen-injector NovoLOG FlexPen 100 UNIT/ML Subcutaneous Solution Pen-injector 01/19/2020 12:00:00 AM EDT aborted 3 ML insulin aspart, human 100 UNT/ML Pe n Injector [NovoLog] [facility] ([facility]) 3 ML Insulin Glargine 100 UNT/ML Pen Inj babs [Lantus] Lantus SoloStar 100 UNIT/ML Subcutaneous Solution Pen-injector Lantus SoloStar 100 UNIT/ML Subcutaneous Solution Pen-injector 01/19/2020 12:00:00 AM EDT aborted 3 ML insulin glargine 100 UNT/ML Pen Inj babs [Lantus] [facility] ([facility]) Comfort EZ Pen Galva 31G X 5 MM Miscellaneous Comfor t EZ Pen Galva 31G X 5 MM Miscellaneous 01/19/2020 12:00:00 AM EDT a borted Comfort EZ Pen Galva [facility] ([facility]) 3 ML Insulin Glargine 100 UNT/ML Pen Inj babs [Lantus] Lantus SoloStar 100 UNIT/ML Subcutaneous Solution Pen-injector Lantus SoloStar 100 UNIT/ML Subcutaneous Solution Pen-injector 01/19/2020 12:00:00 AM EDT aborted 3 ML insulin glargine 100 UNT/ML Pen Inj babs [Lantus] [facility] ([facility]) 3 ML Insulin, Aspart, Human 100 UNT/ML P en Injector [NovoLog] NovoLOG FlexPen 100 UNIT/ML Subcutaneous Solution Pen-injector NovoLOG FlexPen 100 UNIT/ML Subcutaneous Solution Pen-injector 01/19/2020 12:00:00 AM EDT aborted 3 ML insulin aspart, human 100 UNT/ML Pe n Injector [NovoLog] [facility] ([facility]) [facility] Devices Miscellaneous Lancet Devices Miscellaneous 12:00:00 AM EDT active Lancet Devices [facility] ([facility]ly [facility]) CVS Alcohol Prep Pads 70% CVS Alcohol Prep Pads 70% 01/19/2020 1 2:00:00 AM EDT active [facility] Alcohol Prep Pads [facility] ([facility]) 800-160 mg 01/03/2020 12:00:00 AM EDT tablet 20 TAKE ONE TABLET BY MOUTH EVERY 12 HOURS TAKE ONE TABLET BY MOUTH EVERY 12 HOURS SOLD: 01/03/2020 [facility] Cholecalciferol 5000 UNT Oral Tablet Vitamin D3 5000UN IT Oral Tablet Vitamin D3 5000UNIT Oral Tablet 02/17/2018 12:00:00 AM EDT 1 aborted cholecalciferol 0.125 MG Oral Tablet [facility] ([facility]) ferrous sulfate 325 MG Oral Tablet Ferrous Sulfate 325 (65 Fe)MG Oral Tablet Ferrous Sulfate 325 (65 Fe)MG Oral Tablet 02/10/2018 12:00:00 AM EDT 1 aborted ferrous sulfate 325 MG Oral Tabl et [facility] ([facility]) buspirone hydrochloride 7.5 MG Oral Tablet BusPIRone H Cl 7.5MG Oral Tablet BusPIRone HCl 7.5MG Oral Tablet 01/20/2018 12:00:00 AM EDT aborted buspirone hydrochloride 7.5 MG Oral Tablet [facility] ([facility]) Escitalopram 20 MG Oral Tablet [Lexapro] Lexapro 20MG Oral Tablet Lexapro 20MG Oral Tablet 01/20/2018 12:00:00 AM EDT aborte d escitalopram 20 MG Oral Tablet [Lexapro] [facility] ([facility]) 3 ML Insulin Lispro 100 UNT/ML Cartridge [Humalog] HumaLOG 100UNIT/ML Subcutaneous Solution Cartridge HumaLOG 100UNIT/ML Subcutaneous Solution Cartridge 11/11/2017 12:00:00 AM EST aborted 3 ML insulin lispro 100 UNT/ML Cartridge [Humalog] [facility] ([facility]) 21 DAY Ethinyl Estradiol 0.381381 MG/HR / Etonogestrel 0.005 MG/HR Vaginal Ring [NuvaRing] NuvaRing 0.12-0.015MG/24HR Vaginal Ring NuvaRing 0.12-0.015MG/24HR Vaginal Ring 08/19/2017 12:00:00 AM EST abort ed 21 DAY ethinyl estradiol 0.268500 MG/HR / etonogestrel 0.005 MG/HR Vaginal System [NuvaRing] [facility] ([facility]) Acyclovir 0.05 MG/MG Topical Ointment Acyclovir 5% Ext ernal Ointment Acyclovir 5% External Ointment 08/19/2017 12:00:00 AM EST aborted acyclovir 0.05 MG/MG Topical Ointment [facility] ([facility]) FreeStyle Test In Vitro Strip FreeStyle Test In Vitro Strip 02/13/2017 12:00:00 AM EDT aborted FreeStyle Test [facility] ([facility]) Comfort EZ Pen Galva 31G X 5 MM Miscellaneous Comfor t EZ Pen Galva 31G X 5 MM Miscellaneous 02/11/2017 12:00:00 AM EDT a borted Comfort EZ Pen Galva [facility] ([facility]) Blood Glucose Monitor System w/Device Kit (multiple co mponent) Blood Glucose Monitor System w/Device Kit (multiple component) 11/29/2015 12:00:00 AM EST aborted Blood Glucose Monito r System [facility] ([facility]) Insurance Providers Payer name Policy type / Coverage type Policy ID Covered democrat ID Covered democrat's relationship to doran Policy Doran Plan Information ANDREA [id number] SP [id number] ANDREA [id number] SP [id number] ANDREA I [id number] Self [id number] EMEDNY [id number] SP [id number] SELF PAY ONLY [id number] SP [id number] [employer] [place] Other 0 Self 0 [employer] [place] Other 0 Self 0 SELF PAY ANDREA [id number] SP [id number] [employer] [place] Other 0 Self 0 [place] Other 0 Self 0 [employer] [place] Other 0 Self 0 SELF PAY ANDREA [id number] SP [id number] ANDREA CARE [place] [id number] S [id number] MEDICAID M [id number] MEDICAID [id number] SP [id number] SELF PAY ONLY NONE SP NONE UMR [id number] SP [id number] [employer] [place] Other 0 Self 0 [employer] Other 0 Self 0 [employer] [id number] Commercial Insurance [id number] ID IDENTIFICATION [id number] Other In surance [id number] [employer] Other 0 Self 0 [employer] Other 0 Self 0 [employer] Other 0 Self 0 [employer] U [id number] Self [id number] [employer] Other 0 Self 0 MEDICAID M [id number] Self [id number] [employer] U [id number] Self [id number] [employer] Other 0 Self 0 [employer] Other 0 Self 0 [employer] Other 0 Self 0 [employer] Other 0 Self 0 [employer] [id number] Commercial Insurance [id number] ID IDENTIFICATION [id number] Other In surance [id number] [employer] Other 0 Self 0 [employer] Other 0 Self 0 [employer] Other 0 Self 0 MEDICAID M [id number] Self [id number] [employer] HEA [id number] S [id number] UNAVAILABLE UNAVAILA BLE MEDICAID HEA [id number] S [id number] [employer] HEA [id number] S [id number] [employer] U [id number] Child [id number] [employer] [id number] CH [id number] [employer] B[employer] [id number] SP [id number] BR[employer]IRE [id number] SP [id number] BR[employer]AD[employer]IRE [id number] SP [id number] WC-PENDING [id number] SP [id number] [employer] [id number] CH [id number] [employer] [id number] SP [id number] SELF PAY UNAVAILABLE SP UNAVAILA [facility] [id number] Problems, Conditions, and Diagnoses Code Display Name Description Problem Type Effective Dates Data Source(s) F32.1 [id number] Major depressive disorder, single episode , moderate Problem 09/19/2020 12:00:00 AM EST eCW1 ([facility]) Z79.4 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 Proble m 09/04/2020 12:00:00 AM EST eCW1 ([facility]) N91.2 [id number] Amenorrhea Problem 09/04/2020 12:00:00 AM ES T eCW1 ([facility]) F33.2 [id number] Severe episode of re current major depressive disorder, without psychotic features Problem 09/04/2020 12:00:00 AM EST eCW1 ([facility]) F15.11 [id number] History of methamphetamine abuse Pro blem 09/04/2020 12:00:00 AM EST eCW1 ([facility]) K59.01 [id number] Slow transit constipation Problem 09/04/2020 12:00:00 AM EST eCW1 ([facility]) E10.65 [id number] Type 1 diabetes mellitus with hypergly cemia Problem 09/04/2020 12:00:00 AM EST eCW1 ([facility]) R10.9 Unspecified abdominal pain R10.9 - Unspecified abdomin al pain Diagnosis 06/14/2020 01:10:00 PM EDT [facility] R63.4 Abnormal weight loss R63.4 - Abnormal weight loss Diag nosis 06/14/2020 01:10:00 PM EDT [facility] Surgeries/Procedures Procedure Description Date Indications Data Source(s) Immunization: Flublok Quadrivalent (18 years & older) 0.5mL IM (Influenza) 09/04/2020 12:00:00 AM EST eCW1 ([facility]) Past medical history -Please see Problem List for Act dalila Chronic Problems Past medical history -Please see Problem List for Active Chronic Problems 06/12/2020 12:00:00 AM EDT [facility] ([facility]) Surgical / procedural history lymph node removal righ t [id number] Surgical / procedural history lymph node removal right [id number] 06/12/2020 12:00:00 AM EDT [facility] ([facility]) History of section 05/25/17 History of sec tion 05/25/17 06/12/2020 12:00:00 AM EDT [facility] ([facility]) Glucose, Blood by Glucose Monitoring Device(s) Cleared by Glucose, Blood by Glucose Monitoring Device(s) Cleared by 06/12/2020 12:00:00 AM EDT [facility] ([facility]) Glucose, Blood by Glucose Monitoring Device(s) Cleared by Glucose, Blood by Glucose Monitoring Device(s) Cleared by 06/12/2020 12:00:00 AM EDT [facility] ([facility]) Ekg With Interpretation and Report Ekg With Interpretation a nd Report 05/30/2020 12:00:00 AM EDT [facility] ([facility]) Urinalysis, by Dip Stick or Tablet Reagent for Bilirub in, Gl Urinalysis, by Dip Stick or Tablet Reagent for Bilirubin, Gl 05/30/2020 12:00:00 AM EDT [facility] ([facility]) Test Test 05/30/2020 12:00:00 AM EDT [facility] ([facility]) Ekg With Interpretation and Report Ekg With Interpretation a nd Report 05/30/2020 12:00:00 AM EDT [facility] ([facility]) History of section 05/25/17 History of sec tion 05/25/17 01/19/2020 12:00:00 AM EDT [facility] ([facility]) Surgical / procedural history lymph node removal [facility] t [id number] Surgical / procedural history lymph node removal right [id number] 01/19/2020 12:00:00 AM EDT [facility] ([facility]) Results ID Date Data Source [id number] 11/05/2020 11:10:31 AM [facility] Name Value Range Interpretation Code Description Data Maggi rce(s) Supporting Document(s) Progress Note [facility] AJOWHz9uXrTFVaBc37/QXSdbIQTbc8DjIXrwTKy9QJxbYVImB3SvAFH9mL6rOUH5HGhUWyVeCbTqFkU4 lbm InRjpCSvVgMSFkQmaWPeFzUJjrZkghrTKeEZ2RlRE5IIZcB74oMMXzAFGxD8QxGPMsBMC+Ys3PNSXqxO ZmIW4JSzeU3LjDq+B5LD0w5L1iQNXwVsV6Uz3TSRJlmk8QEOcIsJAStm+UJbwyYvtoMBo658njewoosG WCaLz2ktT/rTjgXk0PDKJYm5+q47iIWMt/11/9gMFk Cd9/Z646jgtGep/iMOAFESM6znJ8eqpXPu4BWYxZGXLtjElDWUxDzY6QDFccz+U9PZ3MxgypAGJDuMOj Jnyf2qKSFIHNHKR7RjTAz3UvlCZGA0HLzoBugPjKAhhx02+TE+ZfEBXeyiYsgSdq3eUIaf28RNqvTxnd PAPA/rEGDoGUcFhhTDm/7Ut8Rt3ezVV+S7xS93l4vrfw [file] g0NDI+FK1aWYo+Lb3Mb1MqfxF2ihHdXWgcCFl5Lb8QOCMXI2AXZl== ID Date Data Source [id number] 11/05/2020 10:54:[address] [facility] Name Value Range Interpretation Code Description Data Maggi rce(s) Supporting Document(s) Progress Note [facility] QOUBWa1hVrYOHdZj10/XVAusARZob9JnJTarHPx4DZjvVBGjA8SjBBZ2tZ1cNHE7FJaGUxElPdEuHlW1 lbm [file] 3PVVFPZ9GXAj== ID Date Data Source [id number] 10/19/2020 01:17:[address] [facility] Name Value Range Interpretation Code Description Data Maggi rce(s) Supporting Document(s) Progress Note [facility] HFYPYk7xRwNONwRu23/WNFplIOKde1NeNHtpIOw1KIzdKWQrP7HtMKB1vD7uUJA8WKgFJjVsZnOiDNVy lbm [file] bOUeFv4WYMO2SkXHJvYwDN4WZYa= ID Date Data Source [id number] 10/02/2020 12:00:00 AM EST [facility] Name Value Range Interpretation Code Description Data Maggi rce(s) Supporting Document(s) SARS coronavirus 2 RNA [Presence] in Res piratory specimen by ROBINSON with probe detection NEGATIVE [facility] and reported by [employer]. ID Date Data Source [id number] 06/14/2020 03:25:00 PM EDT [address] [address] Patient Name: Rose Kulkarni Exam Date: 06/14/20 : 1995 Ordering Doctor: Cristina Shukla NP Attending Doctor: Cristina Shukla NP CC: CT ABDOMEN AND PELVIS WITH IV CONTRAST INDICATION: Abdominal pain, bloating, constipation and weight loss TECHNIQUE: Axial slices from the domes of the diaphragm to the proximal femurs. One or more of the following dose reduction techniques were utilized in effectively lowering the radiation dose for this examination: Automated Exposure Control, Adjustment of the mA and/or kV according to patient size, or Iterative reconstruction. IV CONTRAST: 100 mL Isovue-370 ORAL CONTRAST: Given COMPARISON/CORRELATION: No existing prior relevant imaging studies are available. FINDINGS: LOWER CHEST: Lung bases clear. Heart size normal. No pleural or pericardial effusion. LIVER: Normal. GALLBLADDER AND BILE DUCTS: Unremarkable. SPLEEN: Punctate calcified granulomas are present. PANCREAS: Normal. ADRENALS: Normal. KIDNEYS/URETERS/BLADDER: No stones, masses or hydroureter. REPRODUCTIVE: Uterus and ovaries unremarkable. LYMPH NODES: No enlarged lymph nodes. GASTROINTESTINAL: No bowel obstruction, free air or free fluid. There is a large amount of retained stool but no signs of colitis. There are numerous prominent mesenteric lymph nodes measuring up to 9 mm short axis. VASCULAR: No aortic aneurysm ABDOMINAL WALL/SKELETAL: No acute fracture or suspicious lesion. IMPRESSION: Constipation without signs of colitis. Numerous borderline enlarged mesenteric lymph nodes. This is a nonspecific finding, possibly related to constipation. Follow-up recommended in 3-6 months if any concern for lymphoma or chronic infection. Professional interpretation performed at the [facility] Office [facility] . End of diagnostic report: [id number] Signed: Robin Salmeron MD 06/14/20 1539 Interpreted by: Vince Salmeronranscribed by: Robin Salmeron Name Value Range Interpretation Code Description Data Maggi rce(s) Supporting Document(s) ID Date Data Source [id number] 06/12/2020 04:34:00 PM EDT [facility] ([facility]) Name Value Range Interpretation Code Description Data Maggi rce(s) Supporting Document(s) Glucose Level 559 Abnormal (applies to non-numeric results) Glucose Level [facility] ([facility]) ID Date Data Source [id number] 05/30/2020 04:09:00 PM EDT [facility] ([facility]) Name Value Range Interpretation Code Description Data Maggi rce(s) Supporting Document(s) Reported Physicians See Note Reported Physicians [facility]) Note: Reported Physicians:Ordering: Imelda Valle LAttending: Imelda Bach ID Date Data Source [id number] 05/30/2020 04:09:00 PM EDT [facility] ([facility]) Name Value Range Interpretation Code Description Data Maggi rce(s) Supporting Document(s) Chlamydia trachomatis rRNA [Presence] in Unspecified specimen by Probe and target amplification method NEGATIVE CHLAMYDIA, UR INE [facility] ([facility]) Note: Responsible Observer: Chlamydia Ur ine Chlamydia, Urine 500.3180 (A) GC, Urine NEGATIVE GC, Urine [facility] ([facility]) Note: Responsible Observer: GC, Urine GC , Urine 500.3205 (A) ID Date Data Source [id number] 05/30/2020 04:09:00 PM EDT [facility] ([facility]) Name Value Range Interpretation Code Description Data Maggi rce(s) Supporting Document(s) See Note Glass See Note Quan [facility] ([facility]) Note: Run: 06/01/20 0830 INTERFACED REPORT Name: Rose Kulkarni Age/Sex: 24/F Location: [facility] Acct: [id number] Unit: [id number] Status: REG REF Room/Bed: Re05/30/20 Disch: Att Dr: Imelda Bach CONTRACT LEAD Specimen #: [id number] Ordered : 05/30/2011/17/1740 Collected : 05/30/2011/17/1608 By: OFFICE Received: 05/30/2011/17/1740 By: YUNG Source: URINE CC Specimen Description: Procedure Result -- COLONY COUNT Final COLONY COUNT GREATER THAN 100,000 CFU/ML URINE CULTURE Final GRAM POSITIVE COCCI MANY Organism 1 STREP AGALACTIAE GROUP B 1. STREP AGALACTIAE GROUP B LA Int --------- --- LEVOFLOXACIN <=1 S PENICILLIN <=0.03 S S = Susceptible MS = Moderately Susceptible I = Intermediate R = Resistant ALEXIA = Beta Lactamase Positive LA = MCG/mL BLANK = Not Tested or Advisable URINE CULTURE Preliminary (Corrected) GRAM POSITIVE COCCI MANY END OF REPORT ID Date Data Source [id number] 06/01/2020 08:30:00 AM EDT [employer] Run: 06/01/20829 INTERFACED REPORT Name: Rose Kulkarni Age/Sex: 24/F Location: [facility] Acct: [id number] Unit: [id number] Status: REG REF Room/Bed: Re05/30/20 Disch: Att Dr: Imelda Bach CONTRACT LEAD Specimen #: [id number] Ordered : 05/30/2011/17/1740 Collected : 05/30/2011/17/1608 By: OFFICE Received: 05/30/2011/17/1740 By: YUNG Source: URINE CC Specimen Description: Procedure Result - COLONY COUNT Final COLONY COUNT GREATER THAN 100,000 CFU/ML URINE CULTURE Final GRAM POSITIVE COCCI MANY Organism 1 STREP AGALACTIAE GROUP B 1. STREP AGALACTIAE GROUP B LA Int --------- --- LEVOFLOXACIN <=1 S PENICILLIN <=0.03 S S = Susceptible MS = Moderately Susceptible I = Intermediate R = Resistant ALEXIA = Beta Lactamase Positive LA = MCG/mL BLANK = Not Tested or Advisable URINE CULTURE Preliminary (Corrected) GRAM POSITIVE COCCI MANY END OF REPORT Name Value Range Interpretation Code Description Data Maggi rce(s) Supporting Document(s) ID Date Data Source [id number] 06/01/2020 11:28:00 AM EDT [place] [facility] Run: 06/01/20 0830 INTERFACED REPORT Name: [place] Age/Sex: 24/F Location: [facility] Acct: [id number] Unit: [id number] Status: REG REF Room/Bed: Re05/30/20 Disch: Vicki Dr: Imelda Bach CONTRACT LEAD Specimen #: [id number] Ordered : 05/30/2011/17/1740 Collected : 05/30/2011/17/1608 By: OFFICE Received: 05/30/2011/17/1740 By: YUNG Source: URINE CC Specimen Description: Procedure Result - COLONY COUNT Final COLONY COUNT GREATER THAN 100,000 CFU/ML URINE CULTURE Final GRAM POSITIVE COCCI MANY Organism 1 STREP AGALACTIAE GROUP B 1. STREP AGALACTIAE GROUP B LA Int --------- --- LEVOFLOXACIN <=1 S PENICILLIN <=0.03 S S = Susceptible MS = Moderately Susceptible I = Intermediate R = Resistant ALEXIA = Beta Lactamase Positive LA = MCG/mL BLANK = Not Tested or Advisable URINE CULTURE Preliminary (Corrected) GRAM POSITIVE COCCI MANY END OF REPORT Name Value Range Interpretation Code Description Data Maggi rce(s) Supporting Document(s) CHLAMYDIA, URINE NEGATIVE NEGATIVE [facility] GC, Urine NEGATIVE NEGATIVE [facility] ID Date Data Source [id number] 05/30/2020 03:26:00 [place] [address] Patient Name: Rose Kulkarni Exam Date: 05/30/20 : 1995 Ordering Doctor: Imelda Bach NP Attending Doctor: Imelda Bach NP CC: EXAMINATION: Abdomen radiographs, two views. INDICATION: ABDOMINAL PAIN COMPARISON: None. FINDINGS: The lung bases are clear. There is a moderate burden of stool throughout the colon. No large rectal stool ball is identified. Otherwise unremarkable bowel gas pattern. No evidence of free air. No acute osseous abnormality. IMPRESSION: Increased moderate colonic stool burden. This finding can be seen with constipation in the appropriate clinical setting. No evidence of obstruction or free air. Professional interpretation performed by [facility] at [facility] . End of diagnostic report: [id number] Signed: Kobi Ortega MD 05/30/20 2391 Interpreted by: Kobi OrtegaTranscribed by: Kobi Ortega Name Value Range Interpretation Code Description Data Maggi rce(s) Supporting Document(s) ID Date Data Source [id number] 05/30/2020 03:14:00 PM EDT [facility] ([facility]) Name Value Range Interpretation Code Description Data Maggi rce(s) Supporting Document(s) Reported Physicians See Note Reported Physicians [facility] ([facility]) Note: Reported Physicians:Ordering: Imelda Valle LAttending: Imelda Bach ID Date Data Source [id number] 05/30/2020 03:14:00 PM EDT [facility] ([facility]) Name Value Range Interpretation Code Description Data Maggi rce(s) Supporting Document(s) Alkaline Phosphatase,S 133 IU/L Abnormal (applies to non-numeric results) Alkaline Phosphatase,S [facility] ([facility]) Note: Responsible Observer: Alk Phos,S A lkaline Phosphatase,S 897173 800.9930 (A) Bone Fraction,S 26 % Bone Fraction,S [facility] ([facility]) Note: Responsible Observer: Bone Fractio n,S Bone Fraction,S 470302 800.9940 (A) Intestinal Fraction,S 41 % Abnormal (applies t o non-numeric results) Intestinal Fraction,S [facility] ([facility]) Note: Intestinal alkaline phosphatase i s seen normally in the serum of subjects who have B or O blood types, especially after a fatty meal. Pathologically the band may be present in perforation of the bowel, ulcerative disease of the intestine and faintly in liver cirrhosis. Acute infarction of the intestine will cause a release of intestinal ALP from the mucosa. Large erosive or ulcerative lesions of the stomach, duodenum or other small intestinal areas, or colon may result in an elevation of the serum ALP level. The small intestinal lesions associated with malabsorption are associated with an elevation of the serum intestinal ALP level only if there is an erosive or ulcerative mucosal lesion. Performed at: - [facility] [id number] Meteorology Faculty Member: Yudelka Nathan MD, Phone: [phone] Performed at: [facility] [place] [id number] Meteorology Faculty Member: Sondra Pennington MD, Phone: [phone] Observer: Intestinal Frac Intestinal Fraction,S 078610 800.9939 (A) Liver Fraction,S 33 % Liver Fraction,S [facility] ([facility]) Note: Responsible Observer: Liver Fracti on, Liver Fraction,S 588451 800.9997 (A) ID Date Data Source [id number] 05/30/2020 03:14:00 PM EDT [facility] ([facility]) Name Value Range Interpretation Code Description Data Maggi rce(s) Supporting Document(s) HEPATITIS A ANTIBODY, Total,S Negative HEPATI TIS A ANTIBODY, Total,S [facility] ([facility]) Note: Responsible Observer: Hepatitis A Ab, HEPATITIS A ANTIBODY, Total,S 443039 800.1610 (A) HEPATITIS A ANTIBODY, IgM,S Negative HEPATITI S A ANTIBODY, IgM,S [facility] ([facility]) Note: Responsible Observer: Hep A Ab,IgM HEPATITIS A ANTIBODY, IgM,S 087488 800.1605 (A) HCV Ab,S <0.1 s/co_ratio HCV Ab,S [facility] ([facility]) Note: Responsible Observer: HCV Ab,S HCV Ab,S 602366 800.1641 (A) HEPATITIS B CORE ANTIBODY,IGM Negative HEPATI TIS B CORE ANTIBODY,IGM [facility] ([facility]) Note: Responsible Observer: HBcAB,IgM,S HEPATITIS B CORE ANTIBODY,IGM 345050 800.1625 (A) HEPATITIS B SURF ANTIGEN SCRN Negative HEPATI TIS B SURF ANTIGEN SCRN [facility] ([facility]) Note: Responsible Observer: HBsAG Screen ,S HEPATITIS B SURF ANTIGEN SCRN 603924 800.1615 (A) HEP B CORE ANTIBODY,TOTAL Negative HEP B CORE ANTIBODY,TOTAL [facility] ([facility]) Note: Responsible Observer: HBcAB, Total ,S HEP B CORE ANTIBODY,TOTAL 759529 800.1630 (A) HCV COMMENT See Note HCV COMMENT [facility] ([facility]) Note: Non reactive HCV antibody screen is consistent with no HCV infection, unless recent infection is suspected or other evidence exists to indicate HCV infection. Performed at: - [facility] [id number] Meteorology Faculty Member: Yudelka Nathan MD, Phone: [phone] Observer: HCV COMMENT HCV COMMENT [id number] (A) HEPATITIS B SURFACE ANTIBODY Non Reactive HEPAT ITIS B SURFACE ANTIBODY [facility] ([facility]) Note: Non Reactive: Incon sistent with immunity, less than 10 mIU/mL Reactive: Consistent with immunity, greater than 9.9 mIU/mLResponsible Observer: HBsAB,S HEPATITIS B SURFACE ANTIBODY 620112 919.8299 (A) ID Date Data Source [id number] 05/30/2020 03:14:00 PM EDT [facility] ([facility]) Name Value Range Interpretation Code Description Data Maggi rce(s) Supporting Document(s) Thyrotropin [Units/volume] in Serum or Plasma by Detec tion limit <= 0.05 mIU/L 1.444 uIU/ML Normal TSH [facility] ([facility]) Note: Patients should not be tested for 72 hours post fluorescein dye angiography. A false depression of result may occur.Responsible Observer: TSH TSH 300.5500 (A) ID Date Data Source [id number] 05/30/2020 03:14:00 PM EDT [facility] ([facility]) Name Value Range Interpretation Code Description Data Maggi rce(s) Supporting Document(s) Calcidiol [Mass/volume] in Serum or Plasma 21.2 ng/ml Below low normal Vitamin D,25-HYDROXY [facility] ([facility]) Note: Vitamin D Status Rang e Deficiency <20 ng/ml Insufficiency 20-29.9 ng/ml Sufficiency 30-100 ng/ml Toxicity >100 ng/ml Patients should not be tested for 72 hours post fluorescein dye angiography. A false elevation of result may occur.Responsible Observer: Vitamin D Vitamin D,25-Hydroxy 300.5230 (A) ID Date Data Source [id number] 05/30/2020 03:14:00 PM EDT [facility] ([facility]) Name Value Range Interpretation Code Description Data Maggi rce(s) Supporting Document(s) Folate [Interpretation] in Blood > 24.00 NG/ML Above high normal FOLATE [facility] ([facility]) Note: Responsible Observer: FOLATE FOLAT E 300.5210 (A) ID Date Data Source [id number] 05/30/2020 03:14:00 PM EDT [facility] ([facility]) Name Value Range Interpretation Code Description Data Maggi rce(s) Supporting Document(s) Deprecated Cobalamin [Mass/volume] in Serum 451 PG/ML Nor mal VITAMIN B12 [facility] ([facility]) Note: Responsible Observer: B12 VITAMIN B12 300.5200 (A) ID Date Data Source [id number] 05/30/2020 03:14:00 PM EDT [facility] ([facility]) Name Value Range Interpretation Code Description Data Maggi rce(s) Supporting Document(s) LIPASE 42 U/L Normal LIPASE [facility] ([facility]) Note: Responsible Observer: LIP LIPASE 300.4950 (A) ID Date Data Source [id number] 05/30/2020 03:14:00 PM EDT [facility] ([facility]) Name Value Range Interpretation Code Description Data Maggi rce(s) Supporting Document(s) Amylase [Enzymatic activity/volume] in Blood 20 U/L No rmal AMYLASE [facility] ([facility]) Note: Responsible Observer: JULY AMYLASE 300.4900 (A) ID Date Data Source [id number] 05/30/2020 03:14:00 PM EDT [facility] ([facility]) Name Value Range Interpretation Code Description Data Maggi rce(s) Supporting Document(s) Ferritin [Mass/volume] in Serum or Plasma 14.3 NG/ML Below low normal FERRITIN [facility] ([facility]) Note: Responsible Observer: FERRITIN BELA RITIN 300.2650 (A) ID Date Data Source [id number] 05/30/2020 03:14:00 PM EDT [facility] ([facility]) Name Value Range Interpretation Code Description Data Maggi rce(s) Supporting Document(s) % IRON SATURATION 19.0 % Below low normal % IRON SATUR ATION [facility] ([facility]) Note: Responsible Observer: % FE SAT % I CHARLES SATURATION 300.2500 (A) Iron [Mass/volume] in Urine collected for unspecified duration 6 3 UG/DL Normal IRON [facility] ([facility]) Note: Responsible Observer: FE IRON 300 .2400 (A) TIBC 324 UG/DL Normal TIBC [facility] ([facility]) Note: Responsible Observer: TIBC TIBC 3 00.2450 (A) ID Date Data Source [id number] 05/30/2020 03:14:00 PM EDT [facility] ([facility]) Name Value Range Interpretation Code Description Data Maggi rce(s) Supporting Document(s) Hemoglobin A1c/Hemoglobin.total in Blood 13.9 % Above high normal GLYCOSYLATED HGBA1C [facility] ([facility]) Note: Responsible Observer: HGB A1C GLYC OSYLATED HGBA1C 300.0800 (A) ID Date Data Source [id number] 05/30/2020 03:14:00 PM EDT [facility] ([facility]) Name Value Range Interpretation Code Description Data Maggi rce(s) Supporting Document(s) Albumin/Globulin [Mass Ratio] in Amniotic fluid 2.1 G/DL Normal ALB/GLOB RATIO [facility] ([facility]) Note: Responsible Observer: A/G RATIO AL B/GLOB RATIO 300.4100 (A) Albumin [Mass/volume] in Synovial fluid 3.5 G/DL Normal ALBUMIN [facility] ([facility]) Note: Responsible Observer: ALB ALBUMIN 300.3900 (A) Alkaline phosphatase isoenzyme [Units/volume] in Serum or Plasma 149 U/L Above high normal ALKALINE PHOSPHATASE [facility] ([facility]) Note: Responsible Observer: ALK PHOS ALK JENNYFER PHOSPHATASE 300.3110 (A) Alanine aminotransferase [Enzymatic activity/volume] in Seru m or Plasma 63 U/L Above high normal ALT [facility] ([facility]) Note: Responsible Observer: ALT/SGPT ALT 300.3100 (A) Aspartate aminotransferase [Enzymatic activity/volume] in Serum or Plasma 21 U/L Normal AST [facility] ([facility]) Note: Responsible Observer: AST/SGOT AST 300.3050 (A) Urea nitrogen/Creatinine [Mass Ratio] in Serum or Plasma 23 Normal BUN/CREAT RATIO [facility] ([facility]) Note: Responsible Observer: BUN/CREAT RA TERRANCE BUN/CREAT RATIO 300.0450 (A) Bilirubin.total [Mass/volume] in Serum or Plasma 0.2 MG/DL Normal BILIRUBIN,TOTAL [facility] ([facility]) Note: Responsible Observer: TOTAL BILI T OTAL BILIRUBIN 300.2700 (A) CA 8.7 MG/DL Normal CA [facility] ([facility]) Note: Responsible Observer: CA CALCIUM 300.2200 (A) BLOOD UREA NITRO 14 MG/DL Normal BLOOD UREA NITRO [facility] ([facility]) Note: Responsible Observer: BUN BLOOD UR EA NITROGEN 300.0350 (A) Chloride [Moles/volume] in Serum, Plasma or Blood 99 MEQ/L Normal CHLORIDE [facility] ([facility]) Note: Responsible Observer: CL CHLORIDE 300.0200 (A) Carbon dioxide, total [Moles/volume] in Serum or Plasma 30 MEQ/L Normal CARBON DIOXIDE [facility] ([facility]) Note: Responsible Observer: CO2 CARBON D IOXIDE 300.0250 (A) Anion gap in Blood 13 Normal [facility] GAP [facility] Note: Responsible Observer: ANION GAP AN ION GAP 300.0300 (A) Creatine/Creatinine [Mass Ratio] in Urine 0.6 MG/DL Yaneli l CREATININE [facility] ([facility]) Note: Responsible Observer: CREAT CREATI NINE 300.0400 (A) Globulin [Mass/volume] in Serum by calculation 1.7 G/DL Normal GLOBULIN [facility] ([facility]) Note: Responsible Observer: GLOB GLOBULI N 300.4050 (A) GFR > 90.0 ML/MIN GFR [facility] ([facility]) Note: Stage G1 - Normal or high kidney function The GFR is an estimate of the Glomerular Filtration Rate. It is an aid to assess a patient's renal function. It is not a conclusive diagnosis of kidney disease. GFR normal is >=90 The MDRD GFR calculation is considered valid between the ages of 18 and 75 years only.Responsible Observer: GFR GFR 300.0410 (A) Potassium [Mass/volume] in Blood 4.2 MEQ/L Normal POT ASSIUM [facility] ([facility]) Note: Responsible Observer: K POTASSIUM 300.0150 (A) Glucose [Presence] in Urine 271 MG/DL Above high normal G LUCOSE [facility] ([facility]) Note: Responsible Observer: GLU GLUCOSE 300.0500 (A) Sodium [Moles/volume] in Serum, Plasma or Blood 138 MEQ/L Normal SODIUM [facility] ([facility]) Note: Responsible Observer: NA SODIUM 3 00.0100 (A) Protein [Mass/volume] in Synovial fluid 5.2 G/DL B elow low normal TOTAL PROTEIN [facility] ([facility]) Note: Responsible Observer: TP TOTAL PRO TEIN 300.3750 (A) ID Date Data Source [id number] 05/30/2020 03:14:00 PM EDT [facility] ([facility]) Name Value Range Interpretation Code Description Data Maggi rce(s) Supporting Document(s) IMMATURE RETIC FRACTION 10.6 % Normal IMMATURE RET IC FRACTION [facility] ([facility]) Note: Responsible Observer: IRF IMMATURE RETIC FRAC 100.6275 (A) RETICULOCYTE % (AUTO) 2.3 % Above high normal RETICUL OCYTE % (AUTO) [facility] ([facility]) Note: Responsible Observer: RETIC% (AUTO ) RETICULOCYTE % (AUTO) 100.6100 (A) ABSOLUTE RETICS # 0.1028 10\\^6/uL ABSOLUTE RETICS # [facility] ([facility]) Note: Responsible Observer: ABS RETIC# A BSOLUTE RETICS # 100.6200 (A) RETICULOCYTE HGB 35.2 pg Above high normal RETICULOCYTE HGB [facility] ([facility]) Note: Responsible Observer: RET-HE (AUTO ) RETICULOCYTE HGB 100.6155 (A) ID Date Data Source [id number] 05/30/2020 03:14:00 PM EDT [facility] ([facility]) Name Value Range Interpretation Code Description Data Maggi rce(s) Supporting Document(s) BASO # (AUTO) 0.02 10\\^3/uL Normal BASO # (AUTO) [facility] ([facility]) Note: Responsible Observer: BASO # (AUTO ) BASO # (AUTO) 100.1500 (A) BASO % (AUTO) 0.3 % Normal BASO % (AUTO) [facility] ([facility] Note: Responsible Observer: BASO % (AUTO ) BASO % (AUTO) 100.1250 (A) EOS # (AUTO) 0.01 10\\^3/uL Normal EOS # (AUTO) [facility] ( [facility]) Note: Responsible Observer: EOS # (AUTO) EOS # (AUTO) 100.1450 (A) GRAN # (AUTO) 3.54 10\\^3/uL Normal GRAN # (AUTO) [facility] ([facility]) Note: Responsible Observer: GRAN # (AUTO ) GRAN #(AUTO) 100.1325 (A) EOS % (AUTO) 0.2 % Normal EOS % (AUTO) [facility] ([facility]) Note: Responsible Observer: EOS % (AUTO) EOS % (AUTO) 100.1200 (A) Hematocrit [Volume Fraction] of Blood by Automated count 39.0 % Normal HEMATOCRIT [facility] ([facility]) Note: Responsible Observer: HCT HEMATOCR IT 100.0400 (A) GRAN % (AUTO) 59.1 % Normal GRAN % (AUTO) [facility] ([facility] Note: Responsible Observer: GRAN % (AUTO ) GRAN % (AUTO) 100.1000 (A) Hemoglobin [Mass/volume] in Blood 13.1 G/DL Normal HE MOGLOBIN [facility] ([facility]) Note: Responsible Observer: HGB HEMOGLOB IN 100.0300 (A) IG % (AUTO) 0.2 % IG % (AUTO) [facility] ([facility]) Note: Responsible Observer: IG % (AUTO) IG % (AUTO) 100.1255 (A) IG # (AUTO) 0.0 10\\^3/uL IG # (AUTO) [facility] ([facility]) Note: Responsible Observer: IG # (AUTO) IG # (AUTO) 100.1260 (A) LYMPH % (AUTO) 30.2 % Normal LYMPH % (AUTO) [facility] ( [facility]) Note: Responsible Observer: LYMPH % (AUT O) LYMPH % (AUTO) 100.1100 (A) LYMPH # (AUTO) 1.8 k/uL Normal LYMPH # (AUTO) [facility] ( [facility]) Note: Responsible Observer: LYMPH # (AUT O) LYMPH # (AUTO) 100.1350 (A) Erythrocyte mean corpuscular hemoglobin [Entitic mass] by Automated count 29.7 PG Normal MCH [facility] ([facility]) Note: Responsible Observer: MCH MCH 100 .0600 (A) Erythrocyte mean corpuscular hemoglobin concentration [Mass/volume] by Automated count 33.6 G/DL Normal MCHC [facility] ([facility]) Note: Responsible Observer: MCHC MCHC 1 00.0650 (A) Erythrocyte mean corpuscular volume [Entitic volume] by Auto mated count 88.4 FL Normal MCV [facility] ([facility]) Note: Responsible Observer: MCV MCV 100 .0550 (A) MONO % (AUTO) 10.0 % Normal MONO % (AUTO) [facility]ION[facility] ([facility]) Note: Responsible Observer: MONO % (AUTO ) MONO% (AUTO) 100.1150 (A) MONO # (AUTO) 0.60 k/uL Normal MONO # (AUTO) [facility] Note: Responsible Observer: MONO # (AUTO ) MONO # (AUTO) 100.1400 (A) Platelets [#/volume] in Plasma by Automated count 409 10\\^3/uL Above high normal PLATELET COUNT [facility] ([facility]) Note: Responsible Observer: PLT PLATELET COUNT 100.0850 (A) MPV 9.3 FL Normal MPV DION[facility] ([facility]) Note: Responsible Observer: MPV MPV 100 .0950 (A) Erythrocytes [#/volume] in Blood by Automated count 4.41 10\\^6/uL Normal RED BLOOD COUNT [facility] ([facility]) Note: Responsible Observer: RBC RED BLOO D COUNT 100.0250 (A) Erythrocyte distribution width [Ratio] by Automated count 13.1 % Normal RDW [facility] ([facility]) Note: Responsible Observer: RDW RDW 100 .0700 (A) Leukocytes [#/volume] in Blood by Automated count 5.99 10\\^3/uL Normal WHITE BLOOD COUNT [facility] ([facility]) Note: Responsible Observer: WBC WHITE BL OOD COUNT 100.0150 (A) ID Date Data Source [id number] 05/30/2020 05:29:00 PM EDT [facility] Name Value Range Interpretation Code Description Data Maggi rce(s) Supporting Document(s) WHITE BLOOD COUNT 5.99 10^3/uL 4.00-10.50 N [facility] RED BLOOD COUNT 4.41 10^6/uL 3.90-5.20 N [facility] HEMOGLOBIN 13.1 G/DL 11.5-15.6 N [facility] HEMATOCRIT 39.0 % 35.0-46.0 N [facility] MCV 88.4 FL 80.0-100.0 N [facility] MCH 29.7 PG 27.0-34.0 N [facility] MCHC 33.6 G/DL 32-36 N [facility] RDW 13.1 % 11.5-14.5 [facility] PLATELET COUNT 409 10^3/uL 130-400 H [facility] MPV 9.3 FL 8.7-13.2 N [facility] GRAN % (AUTO) 59.1 % 42.0-75.0 N [facility] LYMPH % (AUTO) 30.2 % 20.0-51.0 N [facility] MONO % (AUTO) 10.0 % 2.0-15.0 N [facility] EOS % (AUTO) 0.2 % 0.0-11.0 N [facility] BASO % (AUTO) 0.3 % 0.0-2.0 N [facility] IG % (AUTO) 0.2 % 1.00-5.00 [facility] IG # (AUTO) 0.0 10^3/uL <0.5 [facility] GRAN # (AUTO) 3.54 10^3/uL 1.50-6.50 N [facility] LYMPH # (AUTO) 1.8 k/uL 1.0-5.0 N [facility] MONO # (AUTO) 0.60 k/uL 0.20-1.50 N [facility] EOS # (AUTO) 0.01 10^3/uL 0.00-1.10 N [facility] BASO # (AUTO) 0.02 10^3/uL 0.00-0.20 N [facility] ID Date Data Source [id number] 05/30/2020 08:20:00 PM EDT [facility] Name Value Range Interpretation Code Description Data Maggi rce(s) Supporting Document(s) SODIUM 138 MEQ/L 135-145 N [facility] POTASSIUM 4.2 MEQ/L 3.5-5.3 N [facility] CHLORIDE 99 MEQ/L 94-110 N [facility] CARBON DIOXIDE 30 MEQ/L 22-33 N [facility] ANION GAP 13 5-16 N [facility] BLOOD UREA NITRO 14 MG/DL 7-25 N [facility] CREATININE 0.6 MG/DL 0.6-1.4 N [facility] GFR > 90.0 ML/MIN [facility] Stage G1 - Normal or high kidney functi on The GFR is an estimate of the Glomerular Filtration Rate. It is an aid to assess a patient's renal function. It is not a conclusive diagnosis of kidney disease. GFR normal is >=90 The MDRD GFR calculation is considered valid between the ages of 18 and 75 years only. BUN/CREAT RATIO 23 8-36 N [facility] GLUCOSE 271 MG/DL 70-100 [facility] CA 8.7 MG/DL 8.7-10.5 N [facility] BILIRUBIN,TOTAL 0.2 MG/DL 0.1-1.3 N [facility] AST 21 U/L 5-40 N [facility] ALT 63 U/L 5-48 H [facility] ALKALINE PHOSPHATASE 149 U/L 40-140 [facility] TOTAL PROTEIN 5.2 G/DL 5.9-8.3 L [facility] ALBUMIN 3.5 G/DL 3.0-5.1 N [facility] GLOBULIN 1.7 G/DL 1.5-3.5 N [facility] ALB/GLOB RATIO 2.1 G/DL 1.0-3.0 N [facility] ID Date Data Source [id number] 06/06/2020 06:42:00 PM EDT [facility] Name Value Range Interpretation Code Description Data Maggi rce(s) Supporting Document(s) HEPATITIS A ANTIBODY, IgM,S Negative Negative [facility] HEPATITIS A ANTIBODY, Total,S Negative Negative [facility] HEPATITIS B SURF ANTIGEN SCRN Negative Negative [facility] HEPATITIS B CORE ANTIBODY,IGM Negative Negative [facility] HEP B CORE ANTIBODY,TOTAL Negative Negative [facility] HEPATITIS B SURFACE ANTIBODY Non Reactive . [facility] Non Reactive: Inconsisten t with immunity, less than 10 mIU/mL Reactive: Consistent with immunity, greater than 9.9 mIU/mL HCV Ab,S <0.1 s/co ratio 0.0-0.9 [facility] HCV COMMENT [facility] Non reactive HCV antibody screen is con sistent with no HCV infection, unless recent infection is suspected or other evidence exists to indicate HCV infection. Performed at: RN - [facility] [address] [id number] Meteorology Faculty Member: Yudelka Nathan MD, Phone: [phone] ID Date Data Source [id number] 05/30/2020 05:29:00 PM EDT [facility] Name Value Range Interpretation Code Description Data Maggi rce(s) Supporting Document(s) RETICULOCYTE % (AUTO) 2.3 % 0.5-2.0 H [facility] RETICULOCYTE HGB 35.2 pg 29-35 H [facility] ABSOLUTE RETICS # 0.1028 10^6/uL [facility] IMMATURE RETIC FRACTION 10.6 % 3.0-15.9 N [facility] ID Date Data Source [id number] 05/30/2020 08:20:00 PM EDT [facility] Name Value Range Interpretation Code Description Data Maggi rce(s) Supporting Document(s) GLYCOSYLATED HGBA1C 13.9 % 4.1-6.5 H [facility] ID Date Data Source [id number] 06/06/2020 06:42:00 PM EDT [facility] Name Value Range Interpretation Code Description Data Maggi rce(s) Supporting Document(s) Alkaline Phosphatase,S 133 IU/L 39-117 A [facility] Liver Fraction,S 33 % 18-85 [facility] Bone Fraction,S 26 % 14-68 [facility] Intestinal Fraction,S 41 % 0-18 A [facility] Intestinal alkaline phosphatase is seen normally in the serum of subjects who have B or O blood types, especially after a fatty meal. Pathologically the band may be present in perforation of the bowel, ulcerative disease of the intestine and faintly in liver cirrhosis. Acute infarction of the intestine will cause a release of intestinal ALP from the mucosa. Large erosive or ulcerative lesions of the stomach, duodenum or other small intestinal areas, or colon may result in an elevation of the serum ALP level. The small intestinal lesions associated with malabsorption are associated with an elevation of the serum intestinal ALP level only if there is an erosive or ulcerative mucosal lesion. Performed at: - [facility] [address] [id number] Meteorology Faculty Member: Yudelka Nathan MD, Phone: [phone] Performed at: - [facility] [address] [id number] Meteorology Faculty Member: Sondra Pennington MD, Phone: [phone] ID Date Data Source [id number] 05/30/2020 08:20:00 PM EDT [facility] Name Value Range Interpretation Code Description Data Maggi rce(s) Supporting Document(s) IRON 63 UG/DL 35-150 N [facility] TIBC 324 UG/DL 260-400 N [facility] % IRON SATURATION 19.0 % 20-50 L [facility] ID Date Data Source [id number] 05/30/2020 08:20:00 PM EDT [facility] Name Value Range Interpretation Code Description Data Maggi rce(s) Supporting Document(s) FERRITIN 14.3 NG/ML 22-322 L [facility] ID Date Data Source [id number] 05/30/2020 08:20:00 PM EDT [facility] Name Value Range Interpretation Code Description Data Maggi rce(s) Supporting Document(s) AMYLASE 20 U/L 20-115 N [facility] ID Date Data Source [id number] 05/30/2020 08:20:00 PM EDT [facility] Name Value Range Interpretation Code Description Data Maggi rce(s) Supporting Document(s) LIPASE 42 U/L 6-51 N [facility] ID Date Data Source [id number] 05/30/2020 08:20:00 PM EDT [facility] Name Value Range Interpretation Code Description Data Maggi rce(s) Supporting Document(s) VITAMIN B12 451 PG/ML 211-2000 N [facility] ID Date Data Source [id number] 05/30/2020 08:20:00 PM EDT [facility] Name Value Range Interpretation Code Description Data Maggi rce(s) Supporting Document(s) FOLATE > 24.00 NG/ML 3.40-24.00 H [facility] ID Date Data Source [id number] 05/30/2020 08:20:00 PM EDT [facility] Value Range Interpretation Code Description Data Maggi rce(s) Supporting Document(s) Vitamin D,25-HYDROXY 21.2 ng/ml 30-100 L [facility] Vitamin D Status Range De ficiency <20 ng/ml Insufficiency 20-29.9 ng/ml Sufficiency 30-100 ng/ml Toxicity >100 ng/ml Patients should not be tested for 72 hours post fluorescein dye angiography. A false elevation of result may occur. ID Date Data Source [id number] 05/30/2020 08:20:00 PM EDT [facility] Name Value Range Interpretation Code Description Data Maggi rce(s) Supporting Document(s) TSH 1.444 uIU/ML 0.470-4.200 N [facility] Patients should not be tested for 72 ho urs post fluorescein dye angiography. A false depression of result may occur. ID Date Data Source [id number] 05/30/2020 03:14:00 PM EDT [facility] ([facility]) Name Value Range Interpretation Code Description Data Maggi rce(s) Supporting Document(s) Reported Physicians See Note Reported Physicians [facility] ([facility]) Note: Reported Physicians:Ordering: Imelda Valle LAttending: Imelda Bach ID Date Data Source [id number] 05/30/2020 03:14:00 PM EDT [facility] ([facility]) Name Value Range Interpretation Code Description Data Maggi rce(s) Supporting Document(s) Thyrotropin [Units/volume] in Serum or Plasma by Detec tion limit <= 0.05 mIU/L 1.444 uIU/ML Normal TSH [facility] ([facility]) Note: Patients should not be tested for 72 hours post fluorescein dye angiography. A false depression of result may occur.Responsible Observer: TSH TSH 300.5500 (A) ID Date Data Source [id number] 05/30/2020 03:14:00 PM EDT [facility] ([facility]) Name Value Range Interpretation Code Description Data Maggi rce(s) Supporting Document(s) Calcidiol [Mass/volume] in Serum or Plasma 21.2 ng/ml Below low normal Vitamin D,25-HYDROXY [facility] ([facility]) Note: Vitamin D Status Rang e Deficiency <20 ng/ml Insufficiency 20-29.9 ng/ml Sufficiency 30-100 ng/ml Toxicity >100 ng/ml Patients should not be tested for 72 hours post fluorescein dye angiography. A false elevation of result may occur.Responsible Observer: Vitamin D Vitamin D,25-Hydroxy 300.5230 (A) ID Date Data Source [id number] 05/30/2020 03:14:00 PM EDT [facility] ([facility]) Name Value Range Interpretation Code Description Data Maggi rce(s) Supporting Document(s) Folate [Interpretation] in Blood > 24.00 NG/ML Above high normal FOLATE [facility] ([facility]) Note: Responsible Observer: FOLATE FOLAT E 300.5210 (A) ID Date Data Source [id number] 05/30/2020 03:14:00 PM EDT [facility] ([facility]) Name Value Range Interpretation Code Description Data Maggi rce(s) Supporting Document(s) Deprecated Cobalamin [Mass/volume] in Serum 451 PG/ML Nor mal VITAMIN B12 [facility] ([facility]) Note: Responsible Observer: B12 VITAMIN B12 300.5200 (A) ID Date Data Source [id number] 05/30/2020 03:14:00 PM EDT D[facility] ([facility]) Name Value Range Interpretation Code Description Data Maggi rce(s) Supporting Document(s) LIPASE 42 U/L Normal LIPASE [facility] ([facility]) Note: Responsible Observer: LIP LIPASE 300.4950 (A) ID Date Data Source [id number] 05/30/2020 03:14:00 PM EDT [facility] ([facility]) Name Value Range Interpretation Code Description Data Maggi rce(s) Supporting Document(s) Amylase [Enzymatic activity/volume] in Blood 20 U/L No rmal AMYLASE [facility] ([facility]) Note: Responsible Observer: JULY AMYLASE 300.4900 (A) ID Date Data Source [id number] 05/30/2020 03:14:00 PM EDT [facility] ([facility]) Name Value Range Interpretation Code Description Data Maggi rce(s) Supporting Document(s) Ferritin [Mass/volume] in Serum or Plasma 14.3 NG/ML Below low normal FERRITIN [facility] ([facility]) Note: Responsible Observer: FERRITIN BELA RITIN 300.2650 (A) ID Date Data Source [id number] 05/30/2020 03:14:00 PM EDT [facility] ([facility]) Name Value Range Interpretation Code Description Data Maggi rce(s) Supporting Document(s) Iron [Mass/volume] in Urine collected for unspecified duration 6 3 UG/DL Normal IRON [facility] ([facility]) Note: Responsible Observer: FE IRON 300 .2400 (A) % IRON SATURATION 19.0 % Below low normal % IRON SATUR ATION [facility] ([facility]) Note: Responsible Observer: % FE SAT % I CHARLES SATURATION 300.2500 (A) TIBC 324 UG/DL Normal TIBC [facility] ([facility]) Note: Responsible Observer: TIBC TIBC 3 00.2450 (A) ID Date Data Source [id number] 05/30/2020 03:14:00 PM EDT [facility] ([facility]) Name Value Range Interpretation Code Description Data Maggi rce(s) Supporting Document(s) Hemoglobin A1c/Hemoglobin.total in Blood 13.9 % Above high normal GLYCOSYLATED HGBA1C [facility] ([facility]) Note: Responsible Observer: HGB A1C GLYC OSYLATED HGBA1C 300.0800 (A) ID Date Data Source [id number] 05/30/2020 03:14:00 PM EDT [facility] ([facility]) Name Value Range Interpretation Code Description Data Maggi rce(s) Supporting Document(s) Albumin/Globulin [Mass Ratio] in Amniotic fluid 2.1 G/DL Normal ALB/GLOB RATIO [facility] ([facility]) Note: Responsible Observer: A/G RATIO AL B/GLOB RATIO 300.4100 (A) Albumin [Mass/volume] in Synovial fluid 3.5 G/DL Normal ALBUMIN [facility] ([facility]) Note: Responsible Observer: ALB ALBUMIN 300.3900 (A) Alanine aminotransferase [Enzymatic activity/volume] in Seru m or Plasma 63 U/L Above high normal ALT [facility] ([facility]) Note: Responsible Observer: ALT/SGPT ALT 300.3100 (A) Alkaline phosphatase isoenzyme [Units/volume] in Serum or Plasma 149 U/L Above high normal ALKALINE PHOSPHATASE [facility] ([facility]) Note: Responsible Observer: ALK PHOS ALK JENNYFER PHOSPHATASE 300.3110 (A) Aspartate aminotransferase [Enzymatic activity/volume] in Serum or Plasma 21 U/L Normal AST [facility] ([facility]) Note: Responsible Observer: AST/SGOT AST 300.3050 (A) Urea nitrogen/Creatinine [Mass Ratio] in Serum or Plasma 23 Normal BUN/CREAT RATIO [facility] ([facility]) Note: Responsible Observer: BUN/CREAT RA TERRANCE BUN/CREAT RATIO 300.0450 (A) Bilirubin.total [Mass/volume] in Serum or Plasma 0.2 MG/DL Normal BILIRUBIN,TOTAL [facility] ([facility]) Note: Responsible Observer: TOTAL BILI T OTAL BILIRUBIN 300.2700 (A) CA 8.7 MG/DL Normal CA [facility] ([facility]) Note: Responsible Observer: CA CALCIUM 300.2200 (A) BLOOD UREA NITRO 14 MG/DL Normal BLOOD UREA NITRO [facility] ([facility]) Note: Responsible Observer: BUN BLOOD UR EA NITROGEN 300.0350 (A) Chloride [Moles/volume] in Serum, Plasma or Blood 99 MEQ/L Normal CHLORIDE [facility] ([facility]) Note: Responsible Observer: CL CHLORIDE 300.0200 (A) Creatine/Creatinine [Mass Ratio] in Urine 0.6 MG/DL Yaneli l CREATININE [facility] ([facility]) Note: Responsible Observer: CREAT CREATI NINE 300.0400 (A) Carbon dioxide, total [Moles/volume] in Serum or Plasma 30 MEQ/L Normal CARBON DIOXIDE [facility] ([facility]) Note: Responsible Observer: CO2 CARBON D IOXIDE 300.0250 (A) Anion gap in Blood 13 Normal ANION GAP [facility] Note: Responsible Observer: ANION GAP AN ION GAP 300.0300 (A) Globulin [Mass/volume] in Serum by calculation 1.7 G/DL Normal GLOBULIN [facility] ([facility]) Note: Responsible Observer: GLOB GLOBULI N 300.4050 (A) GFR > 90.0 ML/MIN GFR [facility] ([facility]) Note: Stage G1 - Normal or high kidney function The GFR is an estimate of the Glomerular Filtration Rate. It is an aid to assess a patient's renal function. It is not a conclusive diagnosis of kidney disease. GFR normal is >=90 The MDRD GFR calculation is considered valid between the ages of 18 and 75 years only.Responsible Observer: GFR GFR 300.0410 (A) Glucose [Presence] in Urine 271 MG/DL Above high normal G LUCOSE [facility] ([facility]) Note: Responsible Observer: GLU GLUCOSE 300.0500 (A) Potassium [Mass/volume] in Blood 4.2 MEQ/L Normal POT ASSIUM [facility] ([facility]) Note: Responsible Observer: K POTASSIUM 300.0150 (A) Protein [Mass/volume] in Synovial fluid 5.2 G/DL B elow low normal TOTAL PROTEIN [facility] ([facility]) Note: Responsible Observer: TP TOTAL PRO TEIN 300.3750 (A) Sodium [Moles/volume] in Serum, Plasma or Blood 138 MEQ/L Normal SODIUM [facility] ([facility]) Note: Responsible Observer: NA SODIUM 3 00.0100 (A) ID Date Data Source [id number] 05/30/2020 03:14:00 PM EDT [facility] ([facility]) Name Value Range Interpretation Code Description Data Maggi rce(s) Supporting Document(s) IMMATURE RETIC FRACTION 10.6 % Normal IMMATURE RET IC FRACTION [facility] Note: Responsible Observer: IRF IMMATURE RETIC FRAC 100.6275 (A) RETICULOCYTE % (AUTO) 2.3 % Above high normal RETICUL OCYTE % (AUTO) [facility] ([facility]) Note: Responsible Observer: RETIC% (AUTO ) RETICULOCYTE % (AUTO) 100.6100 (A) ABSOLUTE RETICS # 0.1028 10\\^6/uL ABSOLUTE RETICS # [facility] Note: Responsible Observer: ABS RETIC# A BSOLUTE RETICS # 100.6200 (A) RETICULOCYTE HGB 35.2 pg Above high normal RETICULOCYTE HGB [facility] Note: Responsible Observer: RET-HE (AUTO ) RETICULOCYTE HGB 100.6155 (A) ID Date Data Source [id number] 05/30/2020 03:14:00 PM EDT [facility] ([facility]) Name Value Range Interpretation Code Description Data [facility] rce(s) Supporting Document(s) BASO # (AUTO) 0.02 10\\^3/uL Normal BASO # (AUTO) [facility] Note: Responsible Observer: BASO # (AUTO ) BASO # (AUTO) 100.1500 (A) BASO % (AUTO) 0.3 % Normal BASO % (AUTO) [facility] Note: Responsible Observer: BASO % (AUTO ) BASO % (AUTO) 100.1250 (A) EOS # (AUTO) 0.01 10\\^3/uL Normal EOS # (AUTO) [facility] ( [facility] Note: Responsible Observer: EOS # (AUTO) EOS # (AUTO) 100.1450 (A) GRAN % (AUTO) 59.1 % Normal GRAN % (AUTO) [facility] ([facility]) Note: Responsible Observer: GRAN % (AUTO ) GRAN % (AUTO) 100.1000 (A) GRAN # (AUTO) 3.54 10\\^3/uL Normal GRAN # (AUTO) [facility] ([facility]) Note: Responsible Observer: GRAN # (AUTO ) GRAN #(AUTO) 100.1325 (A) EOS % (AUTO) 0.2 % Normal EOS % (AUTO) [facility] ([facility]) Note: Responsible Observer: EOS % (AUTO) EOS % (AUTO) 100.1200 (A) Hematocrit [Volume Fraction] of Blood by Automated count 39.0 % Normal HEMATOCRIT [facility] ([facility]) Note: Responsible Observer: HCT HEMATOCR IT 100.0400 (A) Hemoglobin [Mass/volume] in Blood 13.1 G/DL Normal HE MOGLOBIN [facility] ([facility]) Note: Responsible Observer: HGB HEMOGLOB IN 100.0300 (A) IG # (AUTO) 0.0 10\\^3/uL IG # (AUTO) [facility] ([facility]) Note: Responsible Observer: IG # (AUTO) IG # (AUTO) 100.1260 (A) IG % (AUTO) 0.2 % IG % (AUTO) [facility] ([facility]) Note: Responsible Observer: IG % (AUTO) IG % (AUTO) 100.1255 (A) LYMPH # (AUTO) 1.8 k/uL Normal LYMPH # (AUTO) [facility] ( [facility]) Note: Responsible Observer: LYMPH # (AUT O) LYMPH # (AUTO) 100.1350 (A) LYMPH % (AUTO) 30.2 % Normal LYMPH % (AUTO) [facility] ( [facility]) Note: Responsible Observer: LYMPH % (AUT O) LYMPH % (AUTO) 100.1100 (A) Erythrocyte mean corpuscular hemoglobin [Entitic mass] by Automated count 29.7 PG Normal MCH [facility] ([facility]) Note: Responsible Observer: MCH MCH 100 .0600 (A) Erythrocyte mean corpuscular volume [Entitic volume] by Auto mated count 88.4 FL Normal MCV [facility] ([facility]) Note: Responsible Observer: MCV MCV 100 .0550 (A) Erythrocyte mean corpuscular hemoglobin concentration [Mass/volume] by Automated count 33.6 G/DL Normal MCHC [facility] ([facility]) Note: Responsible Observer: MCHC MCHC 1 00.0650 (A) MONO % (AUTO) 10.0 % Normal MONO % (AUTO) [facility] ([facility]) Note: Responsible Observer: MONO % (AUTO ) MONO% (AUTO) 100.1150 (A) MONO # (AUTO) 0.60 k/uL Normal MONO # (AUTO) [facility] ([facility] Note: Responsible Observer: MONO # (AUTO ) MONO # (AUTO) 100.1400 (A) MPV 9.3 FL Normal MPV [facility] ([facility]) Note: Responsible Observer: MPV MPV 100 .0950 (A) Platelets [#/volume] in Plasma by Automated count 409 10\\^3/uL Above high normal PLATELET COUNT [facility] ([facility]) Note: Responsible Observer: PLT PLATELET COUNT 100.0850 (A) Erythrocytes [#/volume] in Blood by Automated count 4.41 10\\^6/uL Normal RED BLOOD COUNT [facility] ([facility]) Note: Responsible Observer: RBC RED BLOO D COUNT 100.0250 (A) Erythrocyte distribution width [Ratio] by Automated count 13.1 % Normal RDW [facility] ([facility]) Note: Responsible Observer: RDW RDW 100 .0700 (A) Leukocytes [#/volume] in Blood by Automated count 5.99 10\\^3/uL Normal WHITE BLOOD COUNT [facility] ([facility]) Note: Responsible Observer: WBC WHITE BL OOD COUNT 100.0150 (A) ID Date Data Source [id number] 05/30/2020 02:38:00 PM EDT [facility] ([facility]) Name Value Range Interpretation Code Description Data Maggi rce(s) Supporting Document(s) HCG NEGATIVE HCG [facility] ([facility]) ID Date Data Source [id number] 05/30/2020 02:35:00 PM EDT [facility] ([facility]) Name Value Range Interpretation Code Description Data [facility] rce(s) Supporting Document(s) Blood [Presence] in Urine by Visual NEGATIVE Bloo d DIONNA ([facility]) Bili NEGATIVE Bili DIONNA ([facility]) Ketone NEGATIVE Ketone DIONNA ([facility] e) Color of Exudate from wound YELLOW/CLEAR Normal Color DIONNA ([facility]) Nitrite [Presence] in Urine by Test strip NEGATIVE Nitrite DIONNA ([facility]) Glucose [Mass/volume] in Urine collected for unspecified duratio n >1000 Above high normal Glucose DIONNA ([facility]) Leukocytes [#/volume] by Microscopy high power field in Urine sediment collected for unspecified duration NEGATIVE Leukocytes DIONNA ( [facility]) Protein [Mass/volume] in Saliva (oral fluid) NEGATIVE Protein DIONNA ([facility]) pH of Vaginal fluid by Test strip 7.0 Normal pH DIONNA ([facility]) Urobili 0.2 Normal Urobili DIONNA ([facility]) Specific gravity of Pericardial fluid by Refractometry 1.020 Normal Specific [place] DIONNA ([facility]) ID Date Data Source [id number] 02/29/2020 03:01:22 PM EDT [facility] Name Value Range Interpretation Code Description Data Maggi rce(s) Supporting Document(s) Progress Note [facility] [id number] [id number] [file] [facility][id number] [file] [id number]== Procedure Social History Code Duration Value Status Description Data Source(s ) Smoking 11/05/2020 12:00:00 AM EST Never Smoker completed Never S moker eCW1 ([facility]) Alcohol intake 10/19/2020 12:00:00 AM EST Current non-d dolores of alcohol (finding) completed Current non-drinker of alcohol (finding) [facility] Tobacco use and exposure 10/19/2020 12:00:00 AM EST Never used co mpleted Never used [facility] Smoking 10/19/2020 12:00:00 AM EST Never smoker completed Never s [facility] Smoking 09/04/2020 12:00:00 AM EST Never Smoker completed Never S moker eCW1 ([facility]) Smoking 09/04/2020 12:00:00 AM EST Never Smoker completed Never S moker eCW1 ([facility]) Smoking 09/04/2020 12:00:00 AM EST Never Smoker completed Never S moker eCW1 ([facility]) Smoking 09/04/2020 12:00:00 AM EST Never Smoker completed Never S moker eCW1 ([facility]) Smoking 09/04/2020 12:00:00 AM EST Never Smoker completed Never S moker eCW1 ([facility]) Smoking 09/04/2020 12:00:00 AM EST Never Smoker completed Never S moker eCW1 ([facility]) Smoking 06/12/2020 05:00:17 PM EDT Never smoked tobacco (findi ng) completed Never smoked tobacco (finding) DIONNA ([facility]) Smoking 05/30/2020 12:00:00 AM EDT Never smoked tobacco (findi ng) completed Never smoked tobacco (finding) DIONNA ([facility]) Smoking 01/19/2020 12:00:00 AM EDT Never smoked tobacco (findi ng) completed Never smoked tobacco (finding) DIONNA ([facility]) Vital Signs ID Date Data Source UNK Name Value Range Interpretation Code Description Data Source(s) Diastolic blood pressure 70 mm[Hg] 70 mm[Hg] eCW1 ([facility]) Systolic blood pressure 120 mm[Hg] 120 mm[Hg] e CW1 ([facility]) Body temperature 97.8 [degF] 97.8 [degF] eCW1 ( [facility]) Respiratory rate 18 /min 18 /min eCW1 (Replaced by [facility]) Heart rate 114 /min 114 /min eCW1 ([facility]) Body mass index (BMI) [Ratio] 21.08 kg/m2 21.08 kg/m2 eCW1 ([facility]) Body height [in_i] eCW1 ([facility]) Body weight 119 [lb_av] 119 [lb_av] eCW1 ([facility]) Inhaled oxygen concentration 21 % 21 % [facility] Inhaled oxygen flow rate 0 L/min 0 L/min DIONNA ([facility]) Oxygen saturation in Arterial blood by Pulse oximetry 97 % 97 % DIONNA ([facility]) PhenX - pain, abdominal - type and intensity protocol 2 2 DIONNA ([facility]) Body weight 111 [lb_av] 111 [lb_av] [facility] ([facility]) Body temperature 97.3 [degF] 97.3 [degF] GRE[facility]W [facility]Y [facility] Respiratory rate 20 /min 20 /min DIONNA ([facility]) Heart rate rhythm 1 1 GREENWA Y [facility] Heart rate 114 /min 114 /min [facility] ([facility]) Diastolic blood pressure 88 mm[Hg] 88 mm[Hg] DIONNA ([facility]) Systolic blood pressure 118 mm[Hg] 118 mm[Hg] G REENWAY ([facility]) PhenX - pain, abdominal - type and intensity protocol 3 3 [facility] Inhaled oxygen concentration 21 % 21 % DIONNA ([facility]) Inhaled oxygen flow rate 0 L/min 0 L/min DIONNA ([facility]) Oxygen saturation in Arterial blood by Pulse oximetry 96 % 96 % DIONNA ([facility]) PhenX - pain, abdominal - type and intensity protocol 0 0 DIONNA ([facility]) Body weight 125 [lb_av] 125 [lb_av] [facility] ([facility]) Body temperature 97.6 [degF] 97.6 [degF] GREENW AY ([facility]) Respiratory rate 18 /min 18 /min DIONNA ([facility]) Heart rate rhythm 1 1 GREENWA Y ([facility] Heart rate 125 /min 125 /min [facility] ([facility]) Diastolic blood pressure 62 mm[Hg] 62 mm[Hg] DIONNA ([facility]) Systolic blood pressure 106 mm[Hg] 106 mm[Hg] G REENWAY ([facility]) PhenX - pain, abdominal - type and intensity protocol 0 0 DIONNA ([facility]) ID Date Data Source [id number] 10/19/2020 01:17:[address] [facility] Name Value Range Interpretation Code Description Data Source(s) WEIGHT RECORDED 128 lb 128 lb [facility] Patient Treatment Plan of Care Planned Activity Planned Date Details Description Data Source (s) Baqsimi One Pack 3 MG/DOSE Nasal Powder (Glucagon) 10/19/2020 12 :00:00 AM [facility] FreeStyle Lite Test In Vitro Strip (glucose blood) 10/19/2020 12 :00:00 AM [facility] FreeStyle Lancets 10/19/2020 12:00:00 AM [facility] Basaglar KwikPen 100 UNIT/ML Subcutaneous Solution Pen -injector 10/19/2020 12:00:00 AM [facility] ospital Admelog SoloStar 100 UNIT/ML Subcutaneous Solution Pen -injector 10/19/2020 12:00:00 AM [facility] ospital Lactulose 667 MG/ML Oral Solution 09/06/2020 12:00:00 AM EST eCW1 ([facility]) Lactulose 667 MG/ML Oral Solution 09/06/2020 12:00:00 AM EST eCW1 ([facility]) Lactulose 667 MG/ML Oral Solution 09/06/2020 12:00:00 AM EST eCW1 ([facility]) Lactulose 667 MG/ML Oral Solution 09/06/2020 12:00:00 AM EST eCW1 ([facility]) Lactulose 667 MG/ML Oral Solution 09/06/2020 12:00:00 AM EST eCW1 ([facility]) Lactulose 667 MG/ML Oral Solution 09/06/2020 12:00:00 AM EST eCW1 ([facility]) linaclotide 0.145 MG Oral Capsule [Linzess] 09/04/2020 12:00:00 AM EST eCW1 ([facility]) 21 DAY Ethinyl Estradiol 0.118500 MG/HR / Etonogestrel 0.005 MG/HR Vaginal Ring [NuvaRing] 09/04/2020 12:00:00 AM EST eCW1 ([facility]) linaclotide 0.145 MG Oral Capsule [Linzess] 09/04/2020 12:00:00 AM EST eCW1 ([facility]) 21 DAY Ethinyl Estradiol 0.802196 MG/HR / Etonogestrel 0.005 MG/HR Vaginal Ring [NuvaRing] 09/04/2020 12:00:00 AM EST eCW1 ([facility]) linaclotide 0.145 MG Oral Capsule [Linzess] 09/04/2020 12:00:00 AM EST eCW1 ([facility]) 21 DAY Ethinyl Estradiol 0.558238 MG/HR / Etonogestrel 0.005 MG/HR Vaginal Ring [NuvaRing] 09/04/2020 12:00:00 AM EST eCW1 ([facility]) linaclotide 0.145 MG Oral Capsule [Linzess] 09/04/2020 12:00:00 AM EST eCW1 ([facility]) 21 DAY Ethinyl Estradiol 0.244018 MG/HR / Etonogestrel 0.005 MG/HR Vaginal Ring [NuvaRing] 09/04/2020 12:00:00 AM EST eCW1 ([facility]) linaclotide 0.145 MG Oral Capsule [Linzess] 09/04/2020 12:00:00 AM EST eCW1 ([facility]) 21 DAY Ethinyl Estradiol 0.523446 MG/HR / Etonogestrel 0.005 MG/HR Vaginal Ring [NuvaRing] 09/04/2020 12:00:00 AM EST eCW1 ([facility]) linaclotide 0.145 MG Oral Capsule [Linzess] 09/04/2020 12:00:00 AM EST eCW1 ([facility]) 21 DAY Ethinyl Estradiol 0.750168 MG/HR / Etonogestrel 0.005 MG/HR Vaginal Ring [NuvaRing] 09/04/2020 12:00:00 AM EST eCW1 ([facility]) Luisaglkendra Banda 100 UNIT/ML Subcutaneous Solution Pen -injector 07/10/2020 12:00:00 AM NANCY Bailey ([facility]) Device 06/14/2020 12:00:00 AM T [facility] Senna 8.6 MG Oral Tablet 06/14/2020 12:00:00 AM EDT DIONNA ([facility]) Admelog SoloStar 100 UNIT/ML Subcutaneous Solution Pen -injector 06/14/2020 12:00:00 AM EDT DIONNA ([facility]) CVS Senna 8.6 MG Oral Tablet 06/14/2020 12:00:00 AM EDT DIONNA ([facility]) Basaglar KwikPen 100 UNIT/ML Subcutaneous Solution Pen -injector 06/12/2020 12:00:00 AM EDT DIONNA ([facility]) FreeStyle Test In Vitro Strip 06/12/2020 12:00:00 AM EDT DIONNA ([facility]) Comfort EZ Pen Galva 31G X 5 MM Miscellaneous 06/12/2020 12:00:00 AM EDT DIONNA ([facility]) 3 ML Insulin, Aspart, Human 100 UNT/ML Pen Injector [N ovoLog] 06/12/2020 12:00:00 AM EDT DIONNA ([facility]) Nystatin [id number] UNT/ML Oral Suspension 06/07/2020 12:00:00 AM EDT DIONNA ([facility]) Sulfamethoxazole 800 MG / Trimethoprim 160 MG Oral Tab let [Bactrim] 05/31/2020 12:00:00 AM EDT DIONNA ([facility]) Comfort EZ Pen Galva 31G X 5 MM Miscellaneous 01/19/2020 12:00:00 AM EDT DIONNA ([facility]) FreeStyle Test In Vitro Strip 01/19/2020 12:00:00 AM EDT DIONNA ([facility]) 21 DAY Ethinyl Estradiol 0.198466 MG/HR / Etonogestrel 0.005 MG/HR Vaginal Ring [NuvaRing] 01/19/2020 12:00:00 AM EDT [facility] ([facility]) 3 ML Insulin, Aspart, Human 100 UNT/ML Pen Injector [N ovoLog] 01/19/2020 12:00:00 AM EDT DIONNA ([facility]) 3 ML Insulin Glargine 100 UNT/ML Pen Injector [Lantus] 01/19/2020 12:00:00 AM EDT DIONNA ([facility]) Blood Glucose Monitor System w/Device Kit 01/19/2020 12:00:00 AM ED T DIONNA ([facility]) Lancet Devices Miscellaneous 01/19/2020 12:00:00 AM EDT DIONNA ([facility]) CVS Alcohol Prep Pads 70% 01/19/2020 12:00:00 AM EDT DIONNA ([facility]) buspirone hydrochloride 7.5 MG Oral Tablet 01/20/2018 12:00:00 AM E DT DIONNA ([facility]) Escitalopram 20 MG Oral Tablet [Lexapro] 01/20/2018 12:00:00 AM EDT DIONNA ([facility]) Acyclovir 0.05 MG/MG Topical Ointment 08/19/2017 12:00:00 AM EST DIONNA ([facility]) 21 DAY Ethinyl Estradiol 0.773583 MG/HR / Etonogestrel 0.005 MG/HR Vaginal Ring [NuvaRing] 08/19/2017 12:00:00 AM EST [facility] ([facility]) FreeStyle Test In Vitro Strip 02/13/2017 12:00:00 AM EDT DIONNA ([facility]) Comfort EZ Pen Galva 31G X 5 MM Miscellaneous 02/11/2017 12:00:00 AM EDT DIONNA ([facility]) Blood Glucose Monitor System w/Device Kit (multiple co mponent) 11/29/2015 12:00:00 AM EST DIONNA ([facility])
[2020-11-09 16:43] LABS: BASO % 0.4 % (0.0-1.0); EOS % 0.1 % (0.0-3.0); HEMATOCRIT 38.5 % (36.0-47.0); HEMOGLOBIN 12.5 g/dl (12.0-15.5); LYMPH # 1.6 10^3/uL (1.5-5.0); LYMPH % 21.1 % (24.0-44.0); MEAN CORPUSCULAR HEMOGLOBIN 28.5 pg (27.0-33.0); MEAN CORPUSCULAR HGB CONC 32.5 g/dl (32.0-36.5); MEAN CORPUSCULAR VOLUME 87.9 fl (80.0-96.0); MONO # 0.5 10^3/uL (0.0-0.8); MONO % 6.5 % (2.0-8.0); NEUTROPHILS # 5.5 10^3/uL (1.5-8.5); NEUTROPHILS % 71.5 % (36.0-66.0); PLATELET COUNT, AUTOMATED 399 10^3/uL (150-450); RED BLOOD COUNT 4.38 10^6/uL (4.00-5.40); WHITE BLOOD COUNT 7.7 10^3/uL (4.0-10.0)
[2020-11-09 16:44] LABS: AMPHETAMINES LEVEL URINE NEGATIVE (NEGATIVE); BARBITURATES URINE NEGATIVE (NEGATIVE); BENZODIAZEPINES URINE NEGATIVE (NEGATIVE); CANNABINOIDS URINE NEGATIVE (NEGATIVE); COCAINE METABOLITE URINE NEGATIVE (NEGATIVE); METHADONE URINE NEGATIVE (NEGATIVE); OPIATES URINE NEGATIVE (NEGATIVE); PHENCYCLIDINE URINE NEGATIVE (NEGATIVE)
[2020-11-09 16:54] LABS: INR 0.91; PROTHROMBIN TIME 12.4 SECONDS (12.5-14.3)
--- NOTE | 2020-11-09 17:07 | REP ---
INDICATION: swelling and calf pain, sob. COMPARISON: None. TECHNIQUE: Bilateral lower extremity venous sonography. FINDINGS: The deep veins are anechoic and fully compressible from the groin to the popliteal fossa in the right and left lower extremity. Color flow imaging is homogeneous. Spectral Doppler interrogation demonstrates intact respiratory variation in flow and normal manual augmentation of flow. There is no evidence of deep vein thrombosis. IMPRESSION: Negative bilateral lower extremity duplex venous ultrasound. No evidence of deep vein thrombosis. <Electronically signed by Leopoldo Bond > 11/09/20 [id number]
--- NOTE | 2020-11-09 17:10 | REP ---
INDICATION: DYSPNEA/COUGH. COMPARISON: No comparison chest x-ray. TECHNIQUE: Two views.. FINDINGS: The lungs are well inflated and free of infiltrate. The pleural angles are sharp. The heart size is normal. Pulmonary vasculature is not increased. No significant bony abnormality is seen. Nipple jewelry and monitoring electrodes are noted. IMPRESSION: Negative chest x-ray. <Electronically signed by Leopoldo Bond > 11/09/20 [id number]
[2020-11-09] MEDS ORDERED: ISOVUE-370 76% 100ML VIAL As Ordered ONE ×2 (17:15→19:13)
[2020-11-09 17:19] LABS: ALBUMIN 2.2 GM/DL (3.2-5.2); ALT/SGPT 38 U/L (12-78); BILIRUBIN,DIRECT < 0.1 MG/DL (0.0-0.2); CPK CREATINE PHOSPHOKINASE 49 U/L (26-192); LIPASE 177 U/L (73-393); MB/CK RELATIVE INDEX 2.04 (< OR =4); NT-PRO BNP 148 PG/ML (<125); THYROXINE (T4) 9.3 UG/DL (4.5-12.0); TOTAL PROTEIN 5.3 GM/DL (6.4-8.2); TROPONIN I < 0.02 NG/ML (< 0.10)
[2020-11-09 17:32] LABS: BILIRUBIN,TOTAL < 0.1 MG/DL (0.2-1.0)
[2020-11-09 17:41] LABS: ABG HCO3 20.5 MEQ/L (22.0-26.0); ABG O2 SATURATION 83.4 % (95.0-99.0); ABG STANDARD HCO3 21.7 MEQ/L (22.0-26.0); ABG TOTAL CO2 21.5 MEQ/L (22.0-29.0); ABG pH (ARTERIAL) 7.425 UNITS (7.350-7.450)
[2020-11-09 17:42] LABS: ABG PARTIAL PRESSURE O2 46.1 mmHg (75.0-100.0)
[2020-11-09 17:44] LABS: ACETONE/KETONE 1.46 MG/DL (<2.81)
[2020-11-09 18:01] LABS: HEMOGLOBIN A1c 12.5 %
[2020-11-09 18:21] LABS: ABG BASE EXCESS -4.3 (-2.0-2.0); ABG HCO3 19.3 MEQ/L (22.0-26.0); ABG O2 SATURATION 97.3 % (95.0-99.0); ABG PARTIAL PRESSURE CO2 30.8 mmHg (35.0-45.0); ABG PARTIAL PRESSURE O2 106.9 mmHg (75.0-100.0); ABG STANDARD HCO3 20.9 MEQ/L (22.0-26.0); ABG TOTAL CO2 20.2 MEQ/L (22.0-29.0); ABG pH (ARTERIAL) 7.414 UNITS (7.350-7.450)
--- NOTE | 2020-11-09 18:36 | REPVR ---
PROCEDURE INFORMATION: Exam: CT Angiography Chest With Contrast Exam date and time: 11/09/2020 5:19 PM Age: 24 years old Clinical indication: Shortness of breath and tachypnea; Additional info: SOB, tachycardia, RO pe TECHNIQUE: Imaging protocol: Computed tomographic angiography of the chest with contrast. 3D rendering (Not supervised by radiologist): MIP and/or 3D reconstructed images were created by the technologist. Radiation optimization: All CT scans at this facility use at least one of these dose optimization techniques: automated exposure control; mA and/or kV adjustment per patient size (includes targeted exams where dose is matched to clinical indication); or iterative reconstruction. Contrast material: ISOVUE 370; Contrast volume: 100 ml; Contrast route: INTRAVENOUS (IV); COMPARISON: SD Chest, 2 view PA, Lat 11/09/2020 4:53 PM FINDINGS: Pulmonary arteries: There is opacification of the pulmonary arteries with no evidence of pulmonary embolus. Aorta: There is a linear filling defect of the ascending aorta and possibly artifact. However to absolutely exclude any possibility of dissecting flap recommend repeating the CT scan with IV contrast of the ascending aorta. Great vessels off aortic arch: There is severe narrowing the right subclavian vein along the margin of the clavicle. This causes opacification of multiple collaterals at the right shoulder. Thyroid: Normal thyroid. Lungs: The lungs appear clear. Pleural spaces: There is no evidence of pneumothorax or pleural effusion. Heart: Unremarkable. No cardiomegaly. No pericardial effusion. Mediastinal space: Left subclavian artery is directly posterior to the esophagus and extending to the right as a vascular variation. Lymph nodes: Unremarkable. No enlarged lymph nodes. IMPRESSION: 1. No evidence of pulmonary embolus. 2. Linear filling defect of the ascending aorta is probably artifact. To exclude any possibility of dissecting flap recommend repeating the CT scan of the ascending aorta with bolus contrast. Electronically signed by: Vinay Scott On 11/09/2020 18:36:16 PM
[2020-11-09] MEDS ORDERED: NS 1,000 ML IV ONE ×2 (18:45→19:15)
--- NOTE | 2020-11-09 19:13 | REPVR ---
PROCEDURE INFORMATION: Exam: CT Angiography Abdomen and Pelvis With Contrast Exam date and time: 11/09/2020 5:19 PM Age: 24 years old Clinical indication: Other: SOB, tachycardia, severe bloating, weight gain TECHNIQUE: Imaging protocol: Computed tomographic angiography of the abdomen and pelvis with contrast material. 3D rendering (Not supervised by radiologist): MIP and/or 3D reconstructed images were created by the technologist. Radiation optimization: All CT scans at this facility use at least one of these dose optimization techniques: automated exposure control; mA and/or kV adjustment per patient size (includes targeted exams where dose is matched to clinical indication); or iterative reconstruction. Contrast material: ISOVUE 370; Contrast volume: 100 ml; Contrast route: INTRAVENOUS (IV); COMPARISON: CT ABD PELVIS W/O CONTRAST 09/25/2020 3:23 PM FINDINGS: Aorta: There is opacification of the aorta which appears intact. There is opacification of the aorta which appears intact. Celiac trunk and mesenteric arteries: There is opacification the SMA. Renal arteries: There is opacification of both renal arteries. Right iliac arteries: No occlusion or significant stenosis. Left iliac arteries: No occlusion or significant stenosis. Liver: Normal liver. Gallbladder and bile ducts: Normal common bile duct. The gallbladder is contracted. Pancreas: Normal appearing pancreas. Spleen: Normal spleen. Adrenal glands: Normal adrenal glands. Kidneys and ureters: There is enhancement of both kidneys. There is no evidence of hydronephrosis or obstruction. Stomach and bowel: Cecum is in the right pelvis. There are secretions throughout the small bowel which may be the result of mild ileus. There is no evidence of bowel obstruction. Appendix: The appendix appears within the range of normal. Normal appendix. Intraperitoneal space: There is no evidence pneumoperitoneum. There is no evidence of free fluid in the abdomen or pelvis. There is mild subcutaneous edema throughout the subcutaneous layer especially lower abdomen and hips. Lymph nodes: There are small lymph nodes in the periaortic location. There are approximately 30 lymph nodes scattered throughout the mesentery and along the aorta ranging in size from 1 cm to as large as 2 cm at the left abdomen. These lymph nodes are abnormally enlarged in the differential considerations would include inflammatory lymph nodes, lymphoma, malignant lymphadenopathy. Several moderate-sized lymph nodes following the aorta. Urinary bladder: Normal urinary bladder. Reproductive: Normal uterus. No evidence of adnexal mass. Bones/joints: No acute fracture. No dislocation. Soft tissues: See "Intraperitoneal space" finding. IMPRESSION: 1. There is subcutaneous edema throughout the abdomen and pelvis , also right and left hip. There is also mild edema in the upper mesentery. 2. There are approximately 30 lymph nodes scattered throughout the mesentery and the periaortic location ranging in size from 1 cm to as large as 2 cm at the left abdomen. Considerations would include inflammatory lymph nodes, lymphoma, malignant lymphadenopathy. It would be important to have sequential follow-up CTs for re-evaluation of the enlarged lymph nodes with a follow-up in no longer than 5 months. Electronically signed by: Vinay Scott On 11/09/2020 19:12:56 PM
--- NOTE | 2020-11-09 19:42 | REPVR ---
PROCEDURE INFORMATION: Exam: CT Angiography Chest With Contrast Exam date and time: 11/09/2020 7:21 PM Age: 24 years old Clinical indication: Abnormal findings; Other: Repeat ascendig aorta due to filling defect TECHNIQUE: Imaging protocol: Computed tomographic angiography of the chest with contrast. 3D rendering (Not supervised by radiologist): MIP and/or 3D reconstructed images were created by the technologist. Radiation optimization: All CT scans at this facility use at least one of these dose optimization techniques: automated exposure control; mA and/or kV adjustment per patient size (includes targeted exams where dose is matched to clinical indication); or iterative reconstruction. Contrast material: ISOVUE 370; Contrast volume: 75 ml; Contrast route: INTRAVENOUS (IV); COMPARISON: CT ANGIO CHEST 11/09/2020 5:18 PM FINDINGS: Pulmonary arteries: There is no evidence of pulmonary embolus. Aorta: The aorta is well opacified and appearing intact. Previous linear filling defects no longer identified and consistent with artifact. Lungs: Lungs appear clear. Pleural spaces: There is no evidence of pneumothorax or pleural effusion. Heart: The heart is normal in size. Bones/joints: There is no evidence of bony abnormality. Soft tissues: There is no evidence of soft tissue abnormality. IMPRESSION: The ascending aorta is well opacified and there is no evidence of dissection. Previous linear filling defect is artifact. Electronically signed by: Vinay Scott On 11/09/2020 19:42:48 PM
--- NOTE | 2020-11-09 21:29 | ECGEPIP ---
[facility] - ED Test Date: 2020-11-09 Pat Name: SHAKIRA BUENROSTRO Department: Room: - Gender: Female Pharmacologist: DINORAH : 1995 Requested By: BENJIE Tatum PA-C Order Number: [id number] Reading MD: Marya Garcia Measurements Intervals [place] Rate: 112 P: 57 PA: 159 QRS: 36 QRSD: 92 T: 28 QT: 343 QTc: 469 Interpretive Statements SINUS TACHYCARDIA NONSPECIFIC T-WAVE ABNORMALITY ABNORMAL RHYTHM ECG INCREASED RATE 08/26/20 Electronically Signed on 11-09-2020 21:29:32 EST by Marya Garcia
[2020-11-09 22:00] VITALS: BP 114/81
--- NOTE | 2020-11-10 05:50 | ED PDOC ---
Post-Departure Follow-Up radiology repo rt faxed to Lisa Sprague Sarah MD Nov 10, 2020 05:50
[2020-11-11] MEDS ORDERED: CEPH500T PO (15:23)
== END 2020-11-09 22:17 | disposition home or self-care (01) ==
LOC: M ED 14:51
DX: I88.0 Nonspecific mesenteric lymphadenitis (principal); R06.00 Dyspnea, unspecified; R60.9 Edema, unspecified; R10.9 Unspecified abdominal pain; R00.0 Tachycardia, unspecified; R94.31 Abnormal electrocardiogram [ECG] [EKG]; E11.9 Type 2 diabetes mellitus without complications; F32.9 Major depressive disorder, single episode, unspecified; Z87.448 Personal history of other diseases of urinary system; F19.10 Other psychoactive substance abuse, uncomplicated; Z79.4 Long term (current) use of insulin; Z79.3 Long term (current) use of hormonal contraceptives; Z79.899 Other long term (current) drug therapy
CPT/HCPCS: 36600; 71046; 71275; 74174; 80047; 80076; 80307; 81001; 82010; 82140; 82550; 82553; 82803; 83036; 83605; 83690; 83880; 84436; 84443; 84702; 85025; 85610; 87040; 87088; 87186; 93005; 93041; 93970; 99285; Q9967

== ENCOUNTER → 2020-11-14 | Outpatient (CLI) | payer OTHER ==
[~2020-11-14] MED LIST changes: +ADME100I2 SC; +BASA100I SC; +CEPH500T PO; +ETON1VAG3 VG; +GLUC3SPR NARES; +INSU100I28 SC; +VITMTA PO
[2020-11-14 13:20] LABS: BASO % 0.5 % (0.0-1.0); EOS % 0.2 % (0.0-3.0); HEMATOCRIT 38.6 % (36.0-47.0); HEMOGLOBIN 12.8 g/dl (12.0-15.5); LYMPH # 1.3 10^3/uL (1.5-5.0); LYMPH % 20.1 % (24.0-44.0); MEAN CORPUSCULAR HGB CONC 33.2 g/dl (32.0-36.5); MEAN CORPUSCULAR VOLUME 87.5 fl (80.0-96.0); MONO # 0.4 10^3/uL (0.0-0.8); MONO % 7.1 % (2.0-8.0); NEUTROPHILS # 4.4 10^3/uL (1.5-8.5); NEUTROPHILS % 71.5 % (36.0-66.0); PLATELET COUNT, AUTOMATED 464 10^3/uL (150-450); RED BLOOD COUNT 4.41 10^6/uL (4.00-5.40); WHITE BLOOD COUNT 6.2 10^3/uL (4.0-10.0)
[2020-11-14 13:56] LABS: ALBUMIN 2.2 GM/DL (3.2-5.2); ALT/SGPT 48 U/L (12-78); BILIRUBIN,DIRECT < 0.1 MG/DL (0.0-0.2); BILIRUBIN,TOTAL 0.1 MG/DL (0.2-1.0); TOTAL PROTEIN 5.5 GM/DL (6.4-8.2)
== END ==
LOC: M LAB 12:32
PROVIDERS: ATTEND Internal Medicine Gastroenterology
DX: R93.3 Abnormal findings on diagnostic imaging of other parts of digestive tract (principal); R19.7 Diarrhea, unspecified

== ENCOUNTER → 2020-11-16 | Outpatient (REF) | payer OTHER | LOC: M LAB REF 16:49 | PROVIDERS: ATTEND Internal Medicine Gastroenterology | DX: R19.7 Diarrhea, unspecified (principal) ==

== ENCOUNTER → 2020-11-17 | Outpatient (CLI) | payer OTHER | LOC: M LABSMTC 09:25 | PROVIDERS: ATTEND Anesthesiology | DX: Z01.812 Encounter for preprocedural laboratory examination (principal); Z20.822 Contact with and (suspected) exposure to COVID-19 ==

== ENCOUNTER 2020-11-22 08:30 | Day surgery (SDC) | payer OTHER ==
[~2020-11-22] VITALS: Ht 160 cm; Wt 58.9 kg
[~2020-11-22 08:30] MED LIST changes: +LIDOCAINE 2% 100MG/5ML SDV (FOR ANES.) As Ordered ONE; +NS 1,000 ML IV ONE; +fentaNYL 100 MCG/2 ML INJECTION (J3010) As Ordered ONE; +propofoL 500 MG/50 ML VIAL As Ordered ONE
--- NOTE | 2020-11-22 11:03 | ROOR ---
Patient Name: Rose Kulkarni Procedure Date: 11/22/2020 10:12 AM Date of : 1995 Age: 24 Room: [facility] Gender: Female Note Status: Finalized Procedure: Upper GI endoscopy Indications: Epigastric abdominal pain, Abnormal CT of the GI tract, Weight loss Providers: Dylan Martínez MD Referring MD: DIANDRA Amaya Requesting Provider: Medicines: Monitored Anesthesia Care Complications: No immediate complications. Procedure: Pre-Anesthesia Assessment: - Prior to the procedure, a History and Physical was performed, and patient medications and allergies were reviewed. The patient is competent. The risks and benefits of the procedure and the sedation options and risks were discussed with the patient. All questions were answered and informed consent was obtained. Patient identification and proposed procedure were verified by the physician, the nurse and the anesthesiologist in the procedure room. Mental Status Examination: alert and oriented. Airway Examination: normal oropharyngeal airway and neck mobility. Respiratory Examination: clear to auscultation. CV Examination: normal. Prophylactic Antibiotics: The patient does not require prophylactic antibiotics. Prior Anticoagulants: The patient has taken no previous anticoagulant or antiplatelet agents. ASA Grade Assessment: II - A patient with mild systemic disease. After reviewing the risks and benefits, the patient was deemed in satisfactory condition to undergo the procedure. The anesthesia plan was to use monitored anesthesia care (MAC). Immediately prior to administration of medications, the patient was re-assessed for adequacy to receive sedatives. The heart rate, respiratory rate, oxygen saturations, blood pressure, adequacy of pulmonary ventilation, and response to care were monitored throughout the procedure. The physical status of the patient was re-assessed after the procedure. The Endoscope was introduced through the mouth, and advanced to the second part of duodenum. The upper GI endoscopy was accomplished without difficulty. The patient tolerated the procedure well. Findings: The Z-line was irregular and was found 38 cm from the incisors. Patchy mild inflammation characterized by congestion (edema), erythema and granularity was found in the gastric body and in the gastric antrum. Biopsies were taken with a cold forceps for Helicobacter pylori testing. Verification of patient identification for the specimen was done by the physician and nurse using the patient's name, date and medical record number. Estimated blood loss was minimal. Decreased folds were found in the duodenal bulb, decreased folds were found in the second portion of the duodenum, flattening was found in the duodenal bulb, flattening was found in the second portion of the duodenum, scalloped mucosa was found in the duodenal bulb and scalloped mucosa was found in the second portion of the duodenum. Biopsies for histology were taken with a cold forceps for evaluation of celiac disease. Impression: - Z-line irregular, 38 cm from the incisors. - Gastritis. Biopsied. - Duodenal mucosal changes seen, suspicious for celiac disease. Biopsied. Recommendation: - Patient has a contact number available for emergencies. The signs and symptoms of potential delayed complications were discussed with the patient. Return to normal activities tomorrow. Written discharge instructions were provided to the patient. - High fiber diet and gluten free diet. - Continue present medications. - Await pathology results. - Return to GI clinic in [facility] (address [address], [address], [place], [facility]) in 4 -- 6 weeks. Please call GI clinic @ [phone] for apppointment date and time. - Return to primary care physician. Procedure Code(s): --- Professional --- 35158, Esophagogastroduodenoscopy, flexible, transoral; with biopsy, single or multiple Diagnosis Code(s): --- Professional --- K22.8, Other specified diseases of esophagus K29.70, Gastritis, unspecified, without bleeding K31.89, Other diseases of stomach and duodenum R10.13, Epigastric pain R63.4, Abnormal weight loss R93.3, Abnormal findings on diagnostic imaging of other parts of digestive tract CPT copyright 2019 [employer]. All rights reserved. The codes documented in this report are preliminary and upon printed circuit designer review may be revised to meet current compliance requirements. Dylan Martínez MD Dylan Martínez MD 11/22/2020 11:03:11 AM Electronically signed by Dylan Martínez MD Number of Addenda: 0 Note Initiated On: 11/22/2020 10:12 AM Estimated Blood Loss: Estimated blood loss was minimal.
--- NOTE | 2020-11-22 11:10 | ROOR ---
Patient Name: Rose Kulkarni Procedure Date: 11/22/2020 10:13 AM Date of : 1995 Age: 24 Room: [facility] Gender: Female Note Status: Finalized Procedure: Colonoscopy Indications: Abnormal CT of the GI tract Providers: Dylan Martínez MD Referring MD: DIANDRA Amaya Requesting Provider: Medicines: Monitored Anesthesia Care Complications: No immediate complications. Procedure: Pre-Anesthesia Assessment: - Prior to the procedure, a History and Physical was performed, and patient medications and allergies were reviewed. The patient is competent. The risks and benefits of the procedure and the sedation options and risks were discussed with the patient. All questions were answered and informed consent was obtained. Patient identification and proposed procedure were verified by the physician, the nurse and the anesthesiologist in the procedure room. Mental Status Examination: alert and oriented. Airway Examination: normal oropharyngeal airway and neck mobility. Respiratory Examination: clear to auscultation. CV Examination: normal. Prophylactic Antibiotics: The patient does not require prophylactic antibiotics. Prior Anticoagulants: The patient has taken no previous anticoagulant or antiplatelet agents. ASA Grade Assessment: II - A patient with mild systemic disease. After reviewing the risks and benefits, the patient was deemed in satisfactory condition to undergo the procedure. The anesthesia plan was to use monitored anesthesia care (MAC). Immediately prior to administration of medications, the patient was re-assessed for adequacy to receive sedatives. The heart rate, respiratory rate, oxygen saturations, blood pressure, adequacy of pulmonary ventilation, and response to care were monitored throughout the procedure. The physical status of the patient was re-assessed after the procedure. The Colonoscope was introduced through the anus and advanced to the terminal ileum, with identification of the appendiceal orifice and IC valve. The colonoscopy was performed without difficulty. The patient tolerated the procedure well. The quality of the bowel preparation was good. The terminal ileum, ileocecal valve, appendiceal orifice, and rectum were photographed. Scope insertion time was 2 minutes. Scope withdrawal time was 9 minutes. The total duration of the procedure was 12 minutes. Findings: The perianal and digital rectal examinations were normal. The terminal ileum appeared normal. Normal mucosa was found in the entire colon. Non-bleeding external and internal hemorrhoids were found during retroflexion. The hemorrhoids were small. Impression: - The examined portion of the ileum was normal. - Normal mucosa in the entire examined colon. - Non-bleeding external and internal hemorrhoids. - No specimens collected. Recommendation: - Patient has a contact number available for emergencies. The signs and symptoms of potential delayed complications were discussed with the patient. Return to normal activities tomorrow. Written discharge instructions were provided to the patient. - High fiber diet. - Continue present medications. - Await pathology results. - Repeat colonoscopy at age 48 for screening purposes. - Return to GI office in [facility] (address [address], [address], [place], [facility]) in 4 -- 6 weeks. Please call GI clinic @ [phone] for apppointment date and time. - Return to primary care physician. Procedure Code(s): --- Professional --- 77940, Colonoscopy, flexible; diagnostic, including collection of specimen(s) by brushing or washing, when performed (separate procedure) Diagnosis Code(s): --- Professional --- K64.8, Other hemorrhoids R93.3, Abnormal findings on diagnostic imaging of other parts of digestive tract CPT copyright 2019 [employer]. All rights reserved. The codes documented in this report are preliminary and upon coat operator insulator review may be revised to meet current compliance requirements. Dylan Martínez MD Dylan Martínez MD 11/22/2020 11:10:15 AM Electronically signed by Dylan Martínez MD Number of Addenda: 0 Note Initiated On: 11/22/2020 10:13 AM Estimated Blood Loss: Estimated blood loss was minimal.
[2020-11-22 11:20] VITALS: BP 113/77
== END 2020-11-22 11:30 | disposition home or self-care (01) ==
LOC: M OPP 08:30
PROVIDERS: ATTEND Internal Medicine Gastroenterology
DX: R93.3 Abnormal findings on diagnostic imaging of other parts of digestive tract (principal); K64.8 Other hemorrhoids; K22.8 Other specified diseases of esophagus; K29.70 Gastritis, unspecified, without bleeding; K31.89 Other diseases of stomach and duodenum; R10.13 Epigastric pain; R63.4 Abnormal weight loss; E11.9 Type 2 diabetes mellitus without complications; Z79.4 Long term (current) use of insulin
CPT/HCPCS: 43239; 45378; 88305; 88342; J3010

== ENCOUNTER 2020-12-08 04:36 | Inpatient (IN) | payer OTHER ==
[~2020-12-08] VITALS: Ht 160 cm; Wt 54.0 kg
[2020-12-08] VITALS (9 sets, daily range): BP systolic 101–129; BP diastolic 68–89; O2SAT 100
[~2020-12-08 04:36] MED LIST changes: -LIDOCAINE 2% 100MG/5ML SDV (FOR ANES.) As Ordered ONE; -NS 1,000 ML IV ONE; -fentaNYL 100 MCG/2 ML INJECTION (J3010) As Ordered ONE; -propofoL 500 MG/50 ML VIAL As Ordered ONE
[2020-12-08] MEDS ORDERED: NS 1,000 ML IV ONE (05:05)
[2020-12-08] MEDS ORDERED: COMBIVENT RESPIMAT 100-20MCG INHALER 4GM INH ONE (05:20)
[2020-12-08 05:38] LABS: ABG BASE EXCESS -20.7 (-2.0-2.0); ABG HCO3 3.7 MEQ/L (22.0-26.0); ABG O2 SATURATION 98.4 % (95.0-99.0); ABG PARTIAL PRESSURE O2 166.7 mmHg (75.0-100.0); ABG STANDARD HCO3 9.7 MEQ/L (22.0-26.0)
[2020-12-08 05:42] LABS: ABG pH (ARTERIAL) 7.233 UNITS (7.350-7.450)
[2020-12-08 05:43] LABS: BASO # 0.1 10^3/uL (0.0-0.2); BASO % 0.4 % (0.0-1.0); HEMATOCRIT 46.2 % (36.0-47.0); HEMOGLOBIN 14.8 g/dl (12.0-15.5); LYMPH # 1.5 10^3/uL (1.5-5.0); LYMPH % 8.5 % (24.0-44.0); MEAN CORPUSCULAR HEMOGLOBIN 28.3 pg (27.0-33.0); MEAN CORPUSCULAR VOLUME 88.3 fl (80.0-96.0); MONO # 0.8 10^3/uL (0.0-0.8); MONO % 4.5 % (2.0-8.0); NEUTROPHILS # 14.5 10^3/uL (1.5-8.5); NEUTROPHILS % 85.3 % (36.0-66.0); PLATELET COUNT, AUTOMATED 485 10^3/uL (150-450); RED BLOOD COUNT 5.23 10^6/uL (4.00-5.40)
[2020-12-08 06:00] LABS: INR 1.06; PARTIAL THROMBOPLASTIN TIME 29.2 SECONDS (24.2-38.5)
[2020-12-08 06:03] LABS: D-DIMER QUANT 462.61 ng/ml (<500)
[2020-12-08] MEDS ORDERED: AMOX500C PO (06:03)
[2020-12-08 06:23] LABS: ALBUMIN 2.6 GM/DL (3.2-5.2); ALT/SGPT 24 U/L (12-78); BILIRUBIN,DIRECT < 0.1 MG/DL (0.0-0.2); BILIRUBIN,TOTAL 0.4 MG/DL (0.2-1.0); BLOOD UREA NITROGEN 6 MG/DL (7-18); CALCIUM LEVEL 8.8 MG/DL (8.5-10.1); CARBON DIOXIDE LEVEL 10 MEQ/L (21-32); CHLORIDE LEVEL 106 MEQ/L (98-107); CK-MB VALUE MASS < 1.0 NG/ML (<3.6); CPK CREATINE PHOSPHOKINASE 33 U/L (26-192); CREATININE FOR GFR 0.69 MG/DL (0.55-1.30); FERRITIN 186 NG/ML (8-252); GLOMERULAR FILTRATION RATE > 60.0 (>60); GLUCOSE, FASTING 348 MG/DL (70-100); LDH LACTATE DEHYDROGENASE 171 U/L (84-246); MAGNESIUM LEVEL 1.8 MG/DL (1.8-2.4); MB/CK RELATIVE INDEX 3.03 (< OR =4); NT-PRO BNP 66 PG/ML (<125); POTASSIUM SERUM 4.4 MEQ/L (3.5-5.1); SODIUM LEVEL 136 MEQ/L (136-145); TOTAL PROTEIN 7.2 GM/DL (6.4-8.2); TROPONIN I < 0.02 NG/ML (< 0.10)
[2020-12-08] MEDS ORDERED: HumuLIN R (REGULAR) INSULIN (NovoLIN R) **100U/ML** PER UNIT IV ONE (06:25)
--- NOTE | 2020-12-08 06:40 | REPVR ---
PROCEDURE INFORMATION: Exam: XR Chest Exam date and time: 12/08/2020 5:59 AM Age: 24 years old Clinical indication: Other: Dyspnea/cough TECHNIQUE: Imaging protocol: XR of the chest Views: 1 view. COMPARISON: CT ANGIO CHEST 11/09/2020 7:14 PM FINDINGS: Lungs: Unremarkable. No consolidation. Pleural spaces: Unremarkable. No pleural effusion. No pneumothorax. Heart/Mediastinum: Unremarkable. No cardiomegaly. Bones/joints: Unremarkable. IMPRESSION: No acute findings. Electronically signed by: Ai Mancini On 12/08/2020 06:40:03 AM
[2020-12-08 07:00] LABS: ACETAMINOPHEN LEVEL < 2.0 UG/ML (10.0-30.0); ACETONE/KETONE > 46.00 MG/DL (<2.81); ETHYL ALCOHOL (ETHANOL) < 0.003 % (0.000-0.010); SALICYLATE LEVEL 5.7 MG/DL (5.0-30.0)
[2020-12-08] MEDS ORDERED: CHLORASEPTIC SPRAY MT PRN (08:15)
--- NOTE | 2020-12-08 08:20 | HPEPDOC ---
General Date of Admission Dec 08, 2020 Date of Service: Dec 08, 2020 Chief Complaint The patient is a 24-year-old female admitted with a reason for visit of SOB. Source: Patient History of Present Illness Mrs. Kulkarni is a 24 year old female with DM type 1 who presents with shortness of breath and found to have DKA. She started having COVID symptoms on November 29. She works at [employer] and may have caught it from there. On November 29, she had cold like symptoms such as rhinorrhea and cough. She was tested positive for COVID on December 02. She was self quarantine at home. About 2 days ago, she had dyspnea, cough, loss of appetite, and lethargy. She felt too weak to get up out of her bed. She did not take her insulin for 2 days and did not eat for 2 days. She came into the ED today. She tells me she has never been in DKA before. While in the ED, her voice was soft. She is breathing quickly and felt short of breath. She is requesting a breathing treatment. Unfortunately due to the insulin, adding on a breathing treatment may drop her potassium to quickly. Otherwise, she does have a productive cough with green/yellow sputum. Her lungs sounded clear. Her rapid breathing is from her metabolic acidosis and she has driven her PCO2 to 9. Patient will be admitted for DKA and positive COVID status Home Medications Scheduled Amoxicillin (Amoxicillin) 500 Mg Capsule, 1,000 MG PO BID, (Reported) started 12/04/20 x 14 days Etonogestrel/Ethinyl Estradiol (Etonogestrel-Ee Vaginal Ring) 1 Each Vag.ring, 1 EACH VG QMONTH, (Reported) Insulin Glargine,Hum.rec.anlog (Semglee Pen) 100 Unit/Ml (3 Ml) Insuln.pen, 28 UNITS SC QHS, (Reported) Insulin Lispro (Admelog Solostar) 100 Unit/1 Ml Insuln.pen, 0-12 UNITS SC ACHS, (Reported) Lactobacillus Combo No.10 (Probiotic) 1 Each Capsule, 1 TAB PO DAILY, (Reported) Scheduled PRN Glucagon (Baqsimi) 3 Mg [place], 3 MG NARES ASDIRECTED PRN for LOW BLOOD SUGAR, (Reported) Miscellaneous Medications Multivitamins (Thera M Plus Tablet) 1 Each Tablet, 1 TAB PO, (Reported) Allergies Coded Allergies: No Known Allergies (Unverified , 12/08/20) Past Medical History Medical History 1. Diabetes mellitus type 1 2. Borderline personality disorder 3. Anxiety and depression 4. History of meth use. Per PCPs note, clean since 05/05/2020 Surgical History 1. Lymph node removal in 2002 2. [place] teeth extracted in 2010 3. in 2017 Family History Father: at 49 years old. History of right heart failure and aortic aneurysm rupture Mother: History of hypertension and depression Social History * Smoker: non-smoker Alcohol: Denies Drugs: denies A-FIB/CHADSVASC A-FIB History Current/History of A-Fib/PAF?: No Review of Systems Constitutional: Reports: Malaise, Weakness, Fatigue Eyes: Denies: Vision change ENT: Reports: Sore Throat Skin: Denies: Rash Pulmonary: Reports: Dyspnea, Cough (Green, yellow sputum) Cardiovascular: Denies: Chest Pain Gastrointestinal: Reports: Nausea; Denies: Diarrhea Genitourinary: Denies: Dysuria Hematologic: Denies: Bruising Psych: Denies: Anxiety, Depression Physical Examination General Exam: Positive: Alert, Cooperative, Moderate Distress Eye Exam: Positive: EOMI; Negative: Sclera icteric ENT Exam: Positive: Atraumatic Neck Exam: Positive: Supple Chest Exam: Positive: Clear to auscultation Heart Exam: Positive: Tachycardic, Regular Rhythm Abdomen Exam: Positive: Normal bowel sounds, Soft Extremity Exam: Negative: Edema Neuro Exam: Positive: Normal Speech Psych Exam: Positive: Anxiety Vital Signs Vital Signs Date Time Temp Pulse Resp B/P (MAP) Pulse Ox O2 Delivery O2 Flow Rate FiO2 12/08/20 06:51 152 28 99 Room Air 12/08/20 06:01 185/75 (111) 12/08/20 04:37 98.7 Laboratory Data Labs 24H Laboratory Tests 2 12/08/20 05:04: Immature Granulocyte % (Auto) 1.3, Neutrophils (%) (Auto) 85.3H, Lymphocytes (%) (Auto) 8.5L, Monocytes (%) (Auto) 4.5, Eosinophils (%) (Auto) 0.0, Basophils (%) (Auto) 0.4, Neutrophils # (Auto) 14.5H, Lymphocytes # (Auto) 1.5, Monocytes # (Auto) 0.8, Eosinophils # (Auto) 0.0, Basophils # (Auto) 0.1, Nucleated Red Blood Cells % (auto) 0.0, Prothrombin Time 14.0, Prothromb Time International Ratio 1.06, Activated Partial Thromboplast Time 29.2, D-Dimer, Quantitative 462.61, Anion Gap 20H, Glomerular Filtration Rate > 60.0, Lactic Acid Level 1.4, Calcium Level 8.8, Magnesium Level 1.8, Ferritin 186, Total Bilirubin 0.4, Direct Bilirubin < 0.1, Aspartate Amino Transf (AST/SGOT) 5L, Alanine Aminotransferase (ALT/SGPT) 24, Alkaline Phosphatase 142H, Lactate Dehydrogenase 171, Total Creatine Kinase 33, Creatine Kinase MB < 1.0, Creatine Kinase MB Relative Index 3.03, Troponin I < 0.02, C-Reactive Protein, Quantitative 23.30H, GD-Odg-V-Type Natriuretic Peptide 66, Total Protein 7.2, Albumin 2.6L, Albumin/Globulin Ratio 0.6L, Thyroid Stimulating Hormone (TSH) 2.490, Salicylates Level 5.7, Acetaminophen Level < 2.0L, Ethyl Alcohol Level < 0.003, B-Hydroxybutyrate > 46.00H 12/08/20 05:05: 12/08/20 05:13: Blood Gas Bicarbonate Standard 9.7L, Arterial Blood pH 7.233*L, Arterial Blood Partial Pressure CO2 9.0*L, Arterial Blood Partial Pressure O2 166.7H, Arterial Blood Total CO2 4.0L, Arterial Blood HCO3 3.7L, Arterial Blood Base Excess - 20.7L, Arterial Blood Oxygen Saturation 98.4 12/08/20 06:49: Bedside Glucose (Misc Panel) 292H CBC/BMP Laboratory Tests 12/08/20 05:04 Assessment/Plan Mrs. Kulkarni is a 24 year old female with DM type 1 who presents with shortness of breath and found to have DKA. Of note, respiratory symptoms started November 29 and she was covered positive on December 02. About 2 days ago, dyspnea, cough, and fatigue worsened. She had no appetite and did not take her insulin. This is the most likely cause to her DKA. She tells me that this is her first episode. While here, we'll put her on IV fluids and insulin drip until the gap closes and acidosis resolves. She was given amoxicillin, continue on ceftriaxone and azithromycin and check a pro-calcitonin level. Plan / VTE VTE Prophylaxis Ordered?: Yes Plan Plan 1. DKA in type I diabetic High anion gap metabolic acidosis with a bicarbonate of 10 and a gap of 20 ABG demonstrates a pH of 7.233 and PCO2 of 9 Glucose elevated at 348 Beta hydroxybutyrate > 46 NPO, IV fluids, insulin drip Frequent BMP checks 2. COVID positive Tested positive on December 02, symptoms started November 29 CRP elevated at 23.3 Ferritin and d-dimer within normal limits Supportive care Benzonatate, guaifenesin, Chloraseptic spray 3. Dyspnea Most likely secondary to her diabetic ketoacidosis Bicarbonate low at 10. She is breathing quickly and instruct her PCO2 to 9 We'll treat underlying condition which is her DKA Supportive measures 4. GI prophylaxis IV Protonix 5. DVT prophylaxis CHANTALE Moss DO Dec 08, 2020 08:20
[2020-12-08 08:50] LABS: AMPHETAMINES LEVEL URINE NEGATIVE (NEGATIVE); BARBITURATES URINE NEGATIVE (NEGATIVE); BENZODIAZEPINES URINE NEGATIVE (NEGATIVE); CANNABINOIDS URINE NEGATIVE (NEGATIVE); COCAINE METABOLITE URINE NEGATIVE (NEGATIVE); METHADONE URINE NEGATIVE (NEGATIVE); OPIATES URINE NEGATIVE (NEGATIVE); PHENCYCLIDINE URINE NEGATIVE (NEGATIVE)
[2020-12-08] MEDS: INSULIN REGULAR IN 0.9 % NACL 100 UNIT in IV 1 EA IV SCH ×4 (09:03→11:02)
[2020-12-08] MEDS: KCL 20MEQ IN D5/0.45NS 1000ML 1,000 ML IV SCH ×2 (09:25→15:55)
[2020-12-08 09:27] LABS: BLOOD UREA NITROGEN 6 MG/DL (7-18); CALCIUM LEVEL 8.7 MG/DL (8.5-10.1); CARBON DIOXIDE LEVEL 7 MEQ/L (21-32); CHLORIDE LEVEL 111 MEQ/L (98-107); CREATININE FOR GFR 0.75 MG/DL (0.55-1.30); GLOMERULAR FILTRATION RATE > 60.0 (>60); GLUCOSE, FASTING 310 MG/DL (70-100); SODIUM LEVEL 138 MEQ/L (136-145)
[2020-12-08] MEDS: BENZONATATE 100 MG CAP PO SCH ×3 (09:44→20:05)
[2020-12-08] MEDS: guaiFENesin ER 600 MG TAB PO SCH ×2 (09:44→20:05)
[2020-12-08 10:04] LABS: HEMOGLOBIN A1c 12.5 %
[2020-12-08] MEDS: ENOXAPARIN 40MG/0.4ML SYRINGE (J1650 PER 10MG) SC SCH (10:37)
[2020-12-08] MEDS: PANTOPRAZOLE 40MG VIAL (C9113 PER 1) IV SCH (10:37)
[2020-12-08] MEDS: cefTRIAXone SOD 1 GM in D5W MINI-BAG PLUS 50 ML IV SCH (10:38)
[2020-12-08] MEDS: AZITHROMYCIN INJ 500 MG, VIAL MATE ADAPTER 1 EACH in NS 250 ML IV SCH (11:58)
[2020-12-08 12:31] LABS: BLOOD UREA NITROGEN 4 MG/DL (7-18); CALCIUM LEVEL 8.5 MG/DL (8.5-10.1); CARBON DIOXIDE LEVEL 11 MEQ/L (21-32); CHLORIDE LEVEL 113 MEQ/L (98-107); GLOMERULAR FILTRATION RATE > 60.0 (>60); GLUCOSE, FASTING 222 MG/DL (70-100); POTASSIUM SERUM 3.8 MEQ/L (3.5-5.1); SODIUM LEVEL 139 MEQ/L (136-145)
[2020-12-08] MEDS: ACETAMINOPHEN TAB 650MG DOSE (2X325MG) PO PRN ×3 (12:45→22:15)
[2020-12-08] MEDS: INSULIN IV RATE CHANGE DOCUMENTATION ML/HR XX SCH ×4 (12:54→23:30)
--- NOTE | 2020-12-08 12:58 | ECGEPIP ---
[facility] - ED Test Date: 2020-12-08 Pat Name: SHAKIRA BUENROSTRO Department: Room: - Gender: Female Brokerage Manager: GINI : 1995 Requested By: JASMINE Baum Order Number: [id number] Reading MD: Scott Rebolledo Measurements Intervals [place] Rate: 123 P: 85 MO: 144 QRS: 73 QRSD: 88 T: 53 QT: 320 QTc: 458 Interpretive Statements Sinus tachycardia POOR R WAVE PROGRESSION Nonspecific T wave abnormality SIMILAR TO 11/09/20 Electronically Signed on 12-08-2020 12:57:46 EST by Scott Rebolledo
[2020-12-08 14:20] LABS: BLOOD UREA NITROGEN 4 MG/DL (7-18); CALCIUM LEVEL 8.1 MG/DL (8.5-10.1); CARBON DIOXIDE LEVEL 11 MEQ/L (21-32); CHLORIDE LEVEL 115 MEQ/L (98-107); CREATININE FOR GFR 0.49 MG/DL (0.55-1.30); GLOMERULAR FILTRATION RATE > 60.0 (>60); GLUCOSE, FASTING 152 MG/DL (70-100); POTASSIUM SERUM 3.9 MEQ/L (3.5-5.1); SODIUM LEVEL 140 MEQ/L (136-145)
[2020-12-08 16:57] LABS: BLOOD UREA NITROGEN 4 MG/DL (7-18); CALCIUM LEVEL 8.2 MG/DL (8.5-10.1); CARBON DIOXIDE LEVEL 15 MEQ/L (21-32); CHLORIDE LEVEL 114 MEQ/L (98-107); CREATININE FOR GFR 0.59 MG/DL (0.55-1.30); GLOMERULAR FILTRATION RATE > 60.0 (>60); GLUCOSE, FASTING 190 MG/DL (70-100); POTASSIUM SERUM 3.3 MEQ/L (3.5-5.1); SODIUM LEVEL 138 MEQ/L (136-145)
[2020-12-08] MEDS: KCL 40MEQ IN D5/0.45NS 1000ML 1,000 ML IV SCH ×2 (17:27→22:12)
[2020-12-08 18:20] LABS: BLOOD UREA NITROGEN 4 MG/DL (7-18); CALCIUM LEVEL 8.2 MG/DL (8.5-10.1); CARBON DIOXIDE LEVEL 16 MEQ/L (21-32); CHLORIDE LEVEL 113 MEQ/L (98-107); CREATININE FOR GFR 0.62 MG/DL (0.55-1.30); GLOMERULAR FILTRATION RATE > 60.0 (>60); GLUCOSE, FASTING 181 MG/DL (70-100); POTASSIUM SERUM 3.3 MEQ/L (3.5-5.1); SODIUM LEVEL 138 MEQ/L (136-145)
[2020-12-08] MEDS ORDERED: DEXTROSE 50% 50 ML SYRINGE IV PRN (20:30)
[2020-12-08] MEDS ORDERED: GLUCAGON INJ 1MG VIAL SC PRN (20:30)
[2020-12-08] MEDS ORDERED: GLUCOSE 4GM CHEW TABLET PO PRN (20:30)
[2020-12-08 20:52] LABS: BLOOD UREA NITROGEN 4 MG/DL (7-18); CALCIUM LEVEL 8.2 MG/DL (8.5-10.1); CARBON DIOXIDE LEVEL 16 MEQ/L (21-32); CHLORIDE LEVEL 114 MEQ/L (98-107); CREATININE FOR GFR 0.62 MG/DL (0.55-1.30); GLOMERULAR FILTRATION RATE > 60.0 (>60); GLUCOSE, FASTING 171 MG/DL (70-100); POTASSIUM SERUM 3.5 MEQ/L (3.5-5.1); SODIUM LEVEL 138 MEQ/L (136-145)
[2020-12-09] VITALS (8 sets, daily range): BP systolic 92–111; BP diastolic 69–80; O2SAT 99–100
[2020-12-09] MEDS: INSULIN IV RATE CHANGE DOCUMENTATION ML/HR XX SCH (00:22)
[2020-12-09 00:43] LABS: BLOOD UREA NITROGEN 3 MG/DL (7-18); CALCIUM LEVEL 8.7 MG/DL (8.5-10.1); CARBON DIOXIDE LEVEL 17 MEQ/L (21-32); CHLORIDE LEVEL 115 MEQ/L (98-107); CREATININE FOR GFR 0.53 MG/DL (0.55-1.30); GLOMERULAR FILTRATION RATE > 60.0 (>60); GLUCOSE, FASTING 166 MG/DL (70-100); POTASSIUM SERUM 3.9 MEQ/L (3.5-5.1); SODIUM LEVEL 138 MEQ/L (136-145)
[2020-12-09] MEDS ORDERED: LEVEMIR (INSULIN DETEMIR) 1 UNITS/0.01ML SC ONE (01:15)
[2020-12-09 05:18] LABS: MEAN CORPUSCULAR HEMOGLOBIN 28.3 pg (27.0-33.0); MEAN CORPUSCULAR HGB CONC 32.9 g/dl (32.0-36.5); MEAN CORPUSCULAR VOLUME 86.2 fl (80.0-96.0); PLATELET COUNT, AUTOMATED 401 10^3/uL (150-450); RED BLOOD COUNT 4.06 10^6/uL (4.00-5.40); WHITE BLOOD COUNT 14.3 10^3/uL (4.0-10.0)
[2020-12-09 05:22] LABS: HEMOGLOBIN 11.5 g/dl (12.0-15.5)
[2020-12-09 05:40] LABS: BLOOD UREA NITROGEN 2 MG/DL (7-18); CALCIUM LEVEL 8.6 MG/DL (8.5-10.1); CARBON DIOXIDE LEVEL 17 MEQ/L (21-32); CHLORIDE LEVEL 113 MEQ/L (98-107); CREATININE FOR GFR 0.49 MG/DL (0.55-1.30); GLOMERULAR FILTRATION RATE > 60.0 (>60); GLUCOSE, FASTING 179 MG/DL (70-100); POTASSIUM SERUM 3.6 MEQ/L (3.5-5.1); SODIUM LEVEL 137 MEQ/L (136-145)
[2020-12-09] MEDS: guaiFENesin ER 600 MG TAB PO SCH (08:02)
[2020-12-09] MEDS: ENOXAPARIN 40MG/0.4ML SYRINGE (J1650 PER 10MG) SC SCH (08:02)
[2020-12-09] MEDS: BENZONATATE 100 MG CAP PO SCH (08:02)
[2020-12-09] MEDS: ACETAMINOPHEN TAB 650MG DOSE (2X325MG) PO PRN (08:02)
[2020-12-09] MEDS: PANTOPRAZOLE 40MG VIAL (C9113 PER 1) IV SCH (08:03)
[2020-12-09] MEDS: cefTRIAXone SOD 1 GM in D5W MINI-BAG PLUS 50 ML IV SCH (08:03)
[2020-12-09] MEDS: AZITHROMYCIN INJ 500 MG, VIAL MATE ADAPTER 1 EACH in NS 250 ML IV SCH (09:03)
[2020-12-09] MEDS: HumaLOG INSULIN (NovoLOG) PER UNIT SC SCH ×2 (09:03→12:30)
[2020-12-09 09:52] LABS: VENOUS BASE EXCESS -6.5 (-2.0-2.0); VENOUS HCO3 18.1 MEQ/L (23.0-27.0); VENOUS O2 SATURATION 45.5 % (60.0-80.0); VENOUS PARTIAL PRESSURE CO2 33.2 mmHg (38.0-50.0); VENOUS PH 7.355 UNITS (7.330-7.430); VENOUS STANDARD HCO3 18.2 MEQ/L; VENOUS TOTAL CO2 19.1 MEQ/L (24.0-28.0)
[2020-12-09] MEDS ORDERED: ONDANSETRON 4MG/2ML VIAL IV PRN (10:10)
[2020-12-09] MEDS ORDERED: ONDANSETRON 4MG/2ML VIAL As Ordered ONE (10:14)
[2020-12-09 10:21] LABS: BLOOD UREA NITROGEN 6 MG/DL (7-18); CALCIUM LEVEL 8.3 MG/DL (8.5-10.1); CARBON DIOXIDE LEVEL 21 MEQ/L (21-32); CHLORIDE LEVEL 109 MEQ/L (98-107); CREATININE FOR GFR 0.47 MG/DL (0.55-1.30); GLOMERULAR FILTRATION RATE > 60.0 (>60); GLUCOSE, FASTING 233 MG/DL (70-100); POTASSIUM SERUM 3.7 MEQ/L (3.5-5.1); SODIUM LEVEL 138 MEQ/L (136-145)
[2020-12-09] MEDS ORDERED: NS 1,000 ML IV ONE (11:00)
[2020-12-09] MEDS ORDERED: MUCI600T31 PO (13:09)
[2020-12-09] MEDS ORDERED: BENZ-18 PO (13:09)
--- NOTE | 2020-12-09 17:14 | DS.PDOC ---
Discharge Summary General Date of Admission Dec 08, 2020 at 08:01 Date of Discharge Dec 09, 2020 Attending Physician: CHANTALE QUINTEROS DO Discharge Summary PROCEDURES PERFORMED DURING STAY: None ADMITTING DIAGNOSES: 1. DKA in the setting of type I diabetic due to noncompliance 2. COVID positive 3. Dyspnea 4. High anion gap metabolic acidosis DISCHARGE DIAGNOSES: 1. DKA in the setting of type I diabetic due to noncompliance 2. COVID positive 3. Dyspnea 4. High anion gap metabolic acidos COMPLICATIONS/CHIEF COMPLAINT: Dyspnea HISTORY OF PRESENT ILLNESS: Mrs. Kulkarni is a 24 year old female with DM type 1 who presents with shortness of breath and found to have DKA. She started having COVID symptoms on November 29. She works at [employer] and may have caught it from there. On November 29, she had cold like symptoms such as rhinorrhea and cough. She was tested positive for COVID on December 02. She was self quarantine at home. About 2 days ago, she had dyspnea, cough, loss of appetite, and lethargy. She felt too weak to get up out of her bed. She did not take her insulin for 2 days and did not eat for 2 days. She came into the ED today. She tells me she has never been in DKA before. While in the ED, her voice was soft. She is breathing quickly and felt short of breath. She is requesting a breathing treatment. Unfortunately due to the insulin, adding on a breathing treatment may drop her potassium to quickly. Otherwise, she does have a productive cough with green/yellow sputum. Her lungs sounded clear. Her rapid breathing is from her metabolic acidosis and she has driven her PCO2 to 9. Patient will be admitted for DKA and positive COVID status HOSPITAL COURSE: She is put on the insulin drip protocol for DKA. implementation director, her gap closed and her acidosis resolved. She is put on a diet. She tolerated her [place] meal. For breakfast, she is supposed to have a gluten-free diet. She has celiac disease and is very sensitive to gluten. She had bread and ended up vomiting. We tried a meal at noontime and she tolerated it well. Her dyspnea resolved. She still had a weak voice. This may have been secondary to COVID as she had a negative rapid strep at urgent care. She is on amoxicillin for H. pylori. She felt ready for home and was subsequently discharged DISCHARGE MEDICATIONS: Please see below. ALLERGIES: Please see below. PHYSICAL EXAMINATION ON DISCHARGE: VITAL SIGNS: Please see below. GENERAL: Comfortable, in no apparent distress. HEENT: Head normocephalic/atraumatic, EOMI, sclera clear. NECK: Supple RESPIRATORY: Lungs clear to auscultation bilaterally, no rales, wheeze or rhonchi. CARDIOVASCULAR: Regular rate and rhythm. ABDOMEN: Soft, nontender, no guarding or rebound tenderness. Normal bowel sounds. MUSCLE SKELETAL: Muscle strength 5/5 in all extremities. NEUROLOGICAL: CN 312 grossly intact, no focal deficits noted. PSYCHOLOGICAL: Normal mood and affect LABORATORY DATA: Please see below. IMAGING: CXR No acute findings. PROGNOSIS: Good ACTIVITY: As tolerated. DIET: Carbohydrate consistent diet DISCHARGE PLAN: Home DISPOSITION: Home, Self-Care. DISCHARGE INSTRUCTIONS: 1. Follow up with your PCP within a week 2. Be compliant with her insulin. If you are not eating, please contact your PCP about how much insulin to take or go to the nearest ED 3. Discuss with your PCP about insulin pump DISCHARGE CONDITION: Stable Total time spent on discharge planning, discharge summary, and medication reconciliation: 45 minutes Vital Signs/I&Os Vital Signs Date Time Temp Pulse Resp B/P (MAP) Pulse Ox O2 Delivery O2 Flow Rate FiO2 12/09/20 14:06 98.0 85 21 110/79 (89) 99 Room Air 12/09/20 00:00 1.0 I&O- Last 24 Hours up to 6 AM 12/09/20 06:00 Intake Total 5432 ml Output Total 2100 ml Balance 3332 ml Laboratory Data Labs 24H Laboratory Tests 2 12/08/20 17:49: Anion Gap 9, Glomerular Filtration Rate > 60.0, Calcium Level 8.2L 12/08/20 17:59: Bedside Glucose (Misc Panel) 168H 12/08/20 18:51: Bedside Glucose (Misc Panel) 172H 12/08/20 19:55: Anion Gap 8, Glomerular Filtration Rate > 60.0, Calcium Level 8.2L 12/08/20 19:57: Bedside Glucose (Misc Panel) 172H 12/08/20 21:18: Bedside Glucose (Misc Panel) 155H 12/08/20 22:11: Bedside Glucose (Misc Panel) 158H 12/08/20 23:24: Bedside Glucose (Misc Panel) 147H 12/08/20 23:59: Anion Gap 6L, Glomerular Filtration Rate > 60.0, Calcium Level 8.7 12/09/20 00:12: Bedside Glucose (Misc Panel) 176H 12/09/20 03:09: Bedside Glucose (Misc Panel) 200H 12/09/20 04:49: Anion Gap 7L, Glomerular Filtration Rate > 60.0, Calcium Level 8.6, Nucleated Red Blood Cells % (auto) 0.0 12/09/20 09:12: Blood Gas Bicarbonate Standard 18.2, Venous Blood pH 7.355, Venous Blood Partial Pressure CO2 33.2L, Venous Blood Partial Pressure O2 22.0L, Venous Blood Total Carbon Dioxide 19.1L, Venous Blood HCO3 18.1L, Venous Blood Oxygen Saturation 45.5L, Venous Blood Base Excess -6.5L, Anion Gap 8, Glomerular Filtration Rate > 60.0, Calcium Level 8.3L CBC/BMP Laboratory Tests 12/08/20 17:49 12/08/20 19:55 12/08/20 23:59 12/09/20 04:49 12/09/20 09:12 FSBS Laboratory Tests Test 12/08/20 17:59 12/08/20 18:51 12/08/20 19:57 12/08/20 21:18 Range/Units Bedside Glucose (Misc Panel) 168 172 172 155 70-105 MG/DL Test 12/08/20 22:11 12/08/20 23:24 12/09/20 00:12 12/09/20 03:09 Range/Units Bedside Glucose (Misc Panel) 158 147 176 200 70-105 MG/DL Discharge Medications Scheduled Amoxicillin (Amoxicillin) 500 Mg Capsule, 1,000 MG PO BID, (Reported) started 12/04/20 x 14 days Benzonatate (Benzonatate) 100 Mg Capsule, 100 MG PO TID Etonogestrel/Ethinyl Estradiol (Etonogestrel-Ee Vaginal Ring) 1 Each Vag.ring, 1 EACH VG QMONTH, (Reported) Guaifenesin (Mucinex) 600 Mg Tab.er.12h, 600 MG PO BID Insulin Glargine,Hum.rec.anlog (Semglee Pen) 100 Unit/Ml (3 Ml) Insuln.pen, 28 UNITS SC QHS, (Reported) Insulin Lispro (Admelog Solostar) 100 Unit/1 Ml Insuln.pen, 0-12 UNITS SC ACHS, (Reported) Lactobacillus Combo No.10 (Probiotic) 1 Each Capsule, 1 TAB PO DAILY, (Reported) Scheduled PRN Glucagon (Baqsimi) 3 Mg [place], 3 MG NARES ASDIRECTED PRN for LOW BLOOD SUGAR, (Reported) Miscellaneous Medications Multivitamins (Thera M Plus Tablet) 1 Each Tablet, 1 TAB PO, (Reported) Allergies Coded Allergies: No Known Allergies (Unverified , 12/08/20) CHANTALE QUINTEROS DO Dec 09, 2020 17:14
[2020-12-09] MEDS ORDERED: HumaLOG INSULIN (NovoLOG) PER UNIT SC SCH (21:00)
[2020-12-09] MEDS ORDERED: LEVEMIR (INSULIN DETEMIR) 1 UNITS/0.01ML SC SCH (21:00)
== END 2020-12-09 14:19 | disposition home health service (06) | DRG 420 ==
LOC: M ED 04:36 → M ED INP 08:01 → ENRESERV 08:22 → M ICU 09:55
PROVIDERS: ADMIT Internal Medicine; ATTEND Internal Medicine
DX: E10.10 Type 1 diabetes mellitus with ketoacidosis without coma (principal); U07.1 COVID-19; Z91.14 Patient's other noncompliance with medication regimen; K90.0 Celiac disease; Z79.4 Long term (current) use of insulin; Z79.899 Other long term (current) drug therapy; F60.3 Borderline personality disorder

== ENCOUNTER 2020-12-25 14:43 | Emergency (ER) | payer OTHER ==
[~2020-12-25] VITALS: Ht 160 cm; Wt 60.9 kg
[~2020-12-25 14:43] MED LIST changes: +AMOX500C PO; +BENZ-18 PO; +MUCI600T31 PO
[2020-12-25] MEDS ORDERED: AZIT-12 (15:02)
[2020-12-25] MEDS ORDERED: ALBU8.5H (15:02)
[2020-12-25 15:39] LABS: VENOUS BASE EXCESS 1.3 (-2.0-2.0); VENOUS HCO3 27.7 MEQ/L (23.0-27.0); VENOUS O2 SATURATION 63.7 % (60.0-80.0); VENOUS PARTIAL PRESSURE CO2 51.3 mmHg (38.0-50.0); VENOUS PARTIAL PRESSURE O2 35.1 mmHg (30.0-50.0); VENOUS STANDARD HCO3 24.9 MEQ/L; VENOUS TOTAL CO2 29.3 MEQ/L (24.0-28.0)
[2020-12-25 15:44] LABS: BASO % 0.4 % (0.0-1.0); EOS % 0.4 % (0.0-3.0); HEMATOCRIT 38.4 % (36.0-47.0); HEMOGLOBIN 12.3 g/dl (12.0-15.5); LYMPH # 1.5 10^3/uL (1.5-5.0); LYMPH % 15.6 % (24.0-44.0); MEAN CORPUSCULAR HEMOGLOBIN 28.6 pg (27.0-33.0); MEAN CORPUSCULAR VOLUME 89.3 fl (80.0-96.0); MONO # 0.5 10^3/uL (0.0-0.8); MONO % 5.3 % (2.0-8.0); NEUTROPHILS # 7.6 10^3/uL (1.5-8.5); NEUTROPHILS % 77.9 % (36.0-66.0); PLATELET COUNT, AUTOMATED 511 10^3/uL (150-450); WHITE BLOOD COUNT 9.8 10^3/uL (4.0-10.0)
[2020-12-25] MEDS ORDERED: LEVALBUTEROL HFA 45MCG/ACT 15 GM INHALER INH ONE (15:45)
[2020-12-25] MEDS ORDERED: ISOVUE-370 76% 100ML VIAL As Ordered ONE (15:50)
[2020-12-25] MEDS ORDERED: NS 1,000 ML IV ONE ×2 (15:50→17:45)
[2020-12-25 16:12] LABS: ALBUMIN 2.8 GM/DL (3.2-5.2); ALT/SGPT 30 U/L (12-78); BILIRUBIN,DIRECT < 0.1 MG/DL (0.0-0.2); BILIRUBIN,TOTAL 0.1 MG/DL (0.2-1.0); BLOOD UREA NITROGEN 9 MG/DL (7-18); CALCIUM LEVEL 9.2 MG/DL (8.5-10.1); CARBON DIOXIDE LEVEL 28 MEQ/L (21-32); CHLORIDE LEVEL 101 MEQ/L (98-107); CK-MB VALUE MASS < 1.0 NG/ML (<3.6); CPK CREATINE PHOSPHOKINASE 44 U/L (26-192); CREATININE FOR GFR 0.53 MG/DL (0.55-1.30); GLOMERULAR FILTRATION RATE > 60.0 (>60); GLUCOSE, FASTING 346 MG/DL (70-100); MB/CK RELATIVE INDEX 2.27 (< OR =4); POTASSIUM SERUM 4.1 MEQ/L (3.5-5.1); SODIUM LEVEL 138 MEQ/L (136-145); THYROID STIMULATING HORMONE 0.912 uIU/ML (0.358-3.740); TOTAL PROTEIN 6.9 GM/DL (6.4-8.2); TROPONIN I < 0.02 NG/ML (< 0.10)
--- NOTE | 2020-12-25 16:17 | REP ---
INDICATION: sob. COMPARISON: Comparison CT pulmonary angiogram is from November 09, 2020.. TECHNIQUE: Contrast dose: 75 ML of Isovue [address] technique: Helical scanning is acquired and overlapping 1.5 mm and contiguous 3 mm axial images are reformatted. In addition, maximum intensity projection and multiplanar re-formation images are generated in sagittal and coronal imaging projections. FINDINGS: There is good opacification in the pulmonary arterial tree. There is no evidence of vessel cut off or filling defect to suggest pulmonary embolus. Homogeneous opacity is seen in the thoracic aorta. There is no evidence of aneurysm or dissection. An aberrant right subclavian artery is again noted unchanged. Great vessels and aortic arch are otherwise unremarkable. Lung window settings demonstrate clear well inflated lungs. There is no evidence of infiltrate or mass lesion. There is a right middle lobe perifissural 6 mm nodule seen adjacent the minor fissure on axial CT image number 47 of 104 in series 402 of today's study. This is unchanged from the November 09, 2020 study. This is most likely a benign perifissural nodule. No other pulmonary nodule is appreciated. No hilar or mediastinal mass or adenopathy is observed. In the upper abdomen, there are granulomatous calcifications scattered in the spleen. Normal adrenal glands are seen. Visualized upper abdominal structures are unremarkable. IMPRESSION: No CT evidence of pulmonary embolus. Aberrant right subclavian artery again seen. 6 mm perifissural nodule in the right middle lobe unchanged from November 09, 2020. Otherwise no acute abnormality. <Electronically signed by Leopoldo Bond > 12/25/20 [id number]
[2020-12-25 17:00] LABS: C REACTIVE PROTEIN QUANTITATIV 1.98 MG/DL (0.00-0.30); FERRITIN 19 NG/ML (8-252); LDH LACTATE DEHYDROGENASE 195 U/L (84-246)
[2020-12-25 17:09] LABS: MONO SCRN NEGATIVE (NEGATIVE)
--- NOTE | 2020-12-25 18:03 | ECGEPIP ---
[facility] - ED Test Date: 2020-12-25 Pat Name: SHAKIRA BUENROSTRO Department: Room: - Gender: Female Supervisor Record Press: PRITI : 1995 Requested By: Marya Garcia Order Number: [id number] Reading MD: Marya Garcia Measurements Intervals [place] Rate: 115 P: 68 CA: 150 QRS: 63 QRSD: 82 T: 40 QT: 338 QTc: 467 Interpretive Statements Sinus tachycardia Cannot rule out Anterior infarct , age undetermined NSTTW abnormalities decreased rate 12/08/20 Electronically Signed on 12-25-2020 18:02:59 EDT by Marya Garcia
--- NOTE | 2020-12-25 19:41 | REP ---
INDICATION: pain. COMPARISON: CT ANGIO CHEST 12/25/2020 TECHNIQUE: THREE VIEWS. FINDINGS: THREE VIEWS WERE PROVIDED THE LATERAL VIEW SHOWS STRAIGHTENING OF THE CERVICAL SPINE. THE AP VIEWS OUT TORTICOLLIS IN BOTH VIEW SHOW NARROWING OF THE SUBGLOTTIC TRACHEA AND ON THE LATERAL VIEW THERE IS IRREGULAR CONTOURS AND LOBULATIONS OF THE ANTERIOR WALL. THERE ALSO SOME PARATRACHEAL AIR POCKETS WHICH ARE VISIBLE ON CT ANGIOGRAM EARLIER TODAY. PREVERTEBRAL SOFT TISSUE DENSITY SHOWS SOME THICKENING AND NO THE DEFINITION OF THE ESOPHAGUS THERE IS SOME DISTENTION OF THE HYPOPHARYNGEAL AIRWAY ON THE LATERAL VIEW. THE EPIGLOTTIS SHARPLY DEFINED ARE ITS FOLDS. NO OTHER SIGNIFICANT FINDING. NO FOREIGN BODY IDENTIFIED. IMPRESSION: 1. SUBGLOTTIC TRACHEAL STENOSIS WITH IRREGULARITY OF THE ANTERIOR WALL OF THE SUBGLOTTIC THE AIRWAY AND SOME PARATRACHEAL SUBCUTANEOUS AIR EVIDENT ON THE RADIOGRAPH VISIBLE ON CT CHEST ANGIOGRAM EARLIER TODAY. I DO NOT HAVE THE HISTORY OF RECENT INTUBATION OR EXTENDED INTUBATION BUT DO SEE HER HISTORY OF INSULIN DEPENDENT DIABETES. PARATRACHEAL ABSCESS/PRE-VASCULAR ABSCESS EXTENDING TO THE PARATRACHEAL REGION SHOULD BE CONSIDERED. APPROPRIATE URGENT ENT CONSULTATION RECOMMENDED. <Electronically signed by Alex Garcia > 12/25/201936
--- NOTE | 2020-12-25 20:37 | REPVR ---
PROCEDURE INFORMATION: Exam: CT Neck Without Contrast Exam date and time: 12/25/2020 8:20 PM Age: 25 years old Clinical indication: Other: Hoarse; Prior surgery; Surgery date: 1-6 months; Surgery type: Endoscopy 1 month ago; Additional info: Subcutaneous air on soft tissue films TECHNIQUE: Imaging protocol: Computed tomography images of the neck without contrast. Radiation optimization: All CT scans at this facility use at least one of these dose optimization techniques: automated exposure control; mA and/or kV adjustment per patient size (includes targeted exams where dose is matched to clinical indication); or iterative reconstruction. COMPARISON: NE Soft Tissue Neck 12/25/2020 7:12 PM FINDINGS: Nasopharynx: Unremarkable. Oropharynx: Unremarkable. No significant tonsillar enlargement. Hypopharynx: Unremarkable. Larynx: Unremarkable. Normal epiglottis. Retropharyngeal space: Unremarkable. Submandibular/Parotid glands: Normal. Glands are normal in size. Thyroid: Normal. No enlarged or calcified nodules. Lymph nodes: Unremarkable. No lymphadenopathy. Trachea: Here demonstrated anterior and left lateral to the proximal trachea associated with increased soft tissue thickening in the left paratracheal region, findings which may indicate the presence of a paratracheal abscess (? Tracheal origin). Notably the left paratracheal air extends posterior to the anterior margin of the proximal esophagus raising the possibility of an esophageal origin. Lungs: Unremarkable as visualized. Bones/joints: Unremarkable. No acute fracture. Soft tissues: Unremarkable. No significant soft tissue swelling. IMPRESSION: Here demonstrated anterior and left lateral to the proximal trachea associated with increased soft tissue thickening in the left paratracheal region, findings which may indicate the presence of a paratracheal abscess (? Tracheal origin). Notably the left paratracheal air extends posterior to the anterior margin of the proximal esophagus raising the possibility of an esophageal origin. Electronically signed by: Cornelio sU On 12/25/2020 20:37:22 PM
[2020-12-25 22:18] VITALS: BP 117/84
== END 2020-12-25 22:21 | disposition short-term general hospital (02) ==
LOC: M ED 14:43
DX: U07.1 COVID-19 (principal); K22.3 Perforation of esophagus; R06.02 Shortness of breath; R00.0 Tachycardia, unspecified; R91.1 Solitary pulmonary nodule; E10.9 Type 1 diabetes mellitus without complications; K90.0 Celiac disease; F60.3 Borderline personality disorder; Z79.4 Long term (current) use of insulin; Z79.3 Long term (current) use of hormonal contraceptives; Z79.899 Other long term (current) drug therapy
CPT/HCPCS: 70360; 70490; 71275; 80047; 80048; 80076; 82550; 82553; 82728; 82803; 83615; 84443; 84702; 85025; 85379; 86140; 86308; 87804; 87880; 93005; 93041; 94640; 96360; 96361; 99285; Q9967

== ENCOUNTER → 2021-03-26 | Outpatient (CLI) | payer OTHER ==
[~2021-03-26] MED LIST changes: +ALBU8.5H; +AZIT-12
[2021-03-26 10:16] LABS: C REACTIVE PROTEIN QUANTITATIV 1.8 MG/DL (0.00-0.30); PERCENT SATURATION 7.9 % (13.2-45.0)
[2021-03-26 10:27] LABS: TOTAL 25(OH) VITAMIN D 19.4 NG/ML (30.0-100.0)
== END ==
LOC: M LAB 08:53
PROVIDERS: ATTEND Student in an Organized Health Care Education/Training Program
DX: K90.0 Celiac disease (principal); R59.1 Generalized enlarged lymph nodes

== ENCOUNTER → 2021-04-11 | Outpatient (CLI) | payer OTHER ==
--- NOTE | 2021-04-11 16:26 | DEXAMM ---
INDICATION: CELIAC DISEASE/LYMPHADENOPATHY/R59.1/K90.0/579.0. COMPARISON: None. TECHNIQUE: Bone density was measured using dual-energy x-ray absorptionmetry (DEXA). FINDINGS: AP SPINE L1-L4 BMD 1.098 g/cm2 Young Adult T-Score -0.8 Age Matched Z-Score -0.8. LT FEMUR, TOTAL BMD 0.845 g/cm2 Young Adult T-Score -1.3 Age Matched Z-Score -1.3. LT NECK BMD 0.904 g/cm2 Young Adult T-Score -1.0 Age Matched Z-Score -0.9. RT FEMUR, TOTAL BMD 0.866 g/cm2 Young Adult T-Score -1.1 Age Matched Z-Score -1.1. RT NECK BMD 0.893 g/cm2 Young Adult T-Score -1.0 Age Matched Z-Score -1.0. IMPRESSION: There is normal bone density of the spine. There is low bone density of the left hip. There is low bone density of the right hip. FOLLOW-UP: Recommendation for the next bone density exam: 2 years. <Electronically signed by Leopoldo Bond > 04/11/21 [id number]
== END ==
LOC: M WHC 13:23
PROVIDERS: ATTEND Student in an Organized Health Care Education/Training Program
DX: K90.0 Celiac disease (principal); R59.1 Generalized enlarged lymph nodes; M85.851 Other specified disorders of bone density and structure, right thigh; M85.852 Other specified disorders of bone density and structure, left thigh

== ENCOUNTER → 2021-04-15 | Outpatient (REF) | payer OTHER | LOC: M SFHCWAGY 15:12 | PROVIDERS: ATTEND Advanced Practice Midwife | DX: Z12.4 Encounter for screening for malignant neoplasm of cervix (principal); R85.610 Atypical squamous cells of undetermined significance on cytologic smear of anus (ASC-US) ==

== ENCOUNTER → 2021-05-21 | Outpatient (REF) | payer OTHER ==
[2021-05-21 10:39] LABS: BASO % 0.6 % (0.0-1.0); EOS # 0.1 10^3/uL (0.0-0.5); LYMPH # 1.9 10^3/uL (1.5-5.0); LYMPH % 30.6 % (24.0-44.0); MEAN CORPUSCULAR HEMOGLOBIN 26.1 pg (27.0-33.0); MEAN CORPUSCULAR HGB CONC 31.7 g/dl (32.0-36.5); MEAN CORPUSCULAR VOLUME 82.2 fl (80.0-96.0); MONO # 0.3 10^3/uL (0.0-0.8); MONO % 4.9 % (2.0-8.0); NEUTROPHILS # 3.9 10^3/uL (1.5-8.5); NEUTROPHILS % 62.4 % (36.0-66.0); PLATELET COUNT, AUTOMATED 404 10^3/uL (150-450); RED BLOOD COUNT 4.99 10^6/uL (4.00-5.40); WHITE BLOOD COUNT 6.3 10^3/uL (4.0-10.0)
[2021-05-21 11:01] LABS: ALBUMIN 2.8 GM/DL (3.2-5.2); ALT/SGPT 23 U/L (12-78); BILIRUBIN,TOTAL 0.3 MG/DL (0.2-1.0); BLOOD UREA NITROGEN 12 MG/DL (7-18); C REACTIVE PROTEIN QUANTITATIV 1.82 MG/DL (0.00-0.30); CALCIUM LEVEL 8.6 MG/DL (8.5-10.1); CARBON DIOXIDE LEVEL 26 MEQ/L (21-32); CHLORIDE LEVEL 102 MEQ/L (98-107); CPK CREATINE PHOSPHOKINASE 33 U/L (26-192); CREATININE FOR GFR 0.64 MG/DL (0.55-1.30); GLOMERULAR FILTRATION RATE > 60.0 (>60); GLUCOSE, FASTING 257 MG/DL (70-100); POTASSIUM SERUM 4.2 MEQ/L (3.5-5.1); RHEUMATOID FACTOR QUANT < 10.0 IU/ML (<15.0); SODIUM LEVEL 135 MEQ/L (136-145)
[2021-05-21 11:05] LABS: ERYTHROCYTE SEDIMENTATION RATE 34 mm/hr (0-20)
[2021-05-22 15:09] LABS: ANTI DOUBLE STRAND-DNA AB 1 IU/mL (0-9); ANTINUCLEAR ANTIBODIES DIRECT Positive (Negative); Lyme Disease IgG/IgM Antibodie <0.91 ISR (0.00-0.90); Lyme Disease IgM Ab Quantitati <0.80 index (0.00-0.79); RNP ANTIBODIES <0.2 AI (0.0-0.9); SJOGREN'S ANTI SS-A 7.4 AI (0.0-0.9); SJOGREN'S ANTI SS-B 0.3 AI (0.0-0.9); SMITH ANTIBODIES <0.2 AI (0.0-0.9)
== END ==
LOC: M SFHCADAM 09:24
DX: M79.604 Pain in right leg (principal); M79.605 Pain in left leg

== ENCOUNTER → 2021-05-27 | Outpatient (REF) | payer OTHER | LOC: M SFHCADAM 15:15 | PROVIDERS: ATTEND Physician Assistant Medical | DX: R25.2 Cramp and spasm (principal) ==

== ENCOUNTER → 2022-03-17 | Outpatient (REF) | payer OTHER ==
[2022-03-17 16:56] LABS: ALBUMIN 3.1 GM/DL (3.2-5.2); ALT/SGPT 23 U/L (12-78); BILIRUBIN,TOTAL 0.3 MG/DL (0.2-1.0); BLOOD UREA NITROGEN 8 MG/DL (7-18); CARBON DIOXIDE LEVEL 30 MEQ/L (21-32); CHLORIDE LEVEL 99 MEQ/L (98-107); CHOLESTEROL LEVEL 212 MG/DL (<200); CHOLESTEROL RISK RATIO 3.365 (<5); CREATININE FOR GFR 0.55 MG/DL (0.55-1.30); GLOMERULAR FILTRATION RATE > 60.0 (>60); GLUCOSE, FASTING 223 MG/DL (70-100); HDL CHOLESTEROL 63 MG/DL (>40); LDL CHOLESTEROL 115 MG/DL (<100); NON-HDL-C 149 MG/DL; SODIUM LEVEL 138 MEQ/L (136-145); THYROID STIMULATING HORMONE 0.944 uIU/ML (0.358-3.740); TOTAL PROTEIN 6.3 GM/DL (6.4-8.2); TRIGLYCERIDES LEVEL 169 MG/DL (<150)
[2022-03-17 16:59] LABS: TOTAL 25(OH) VITAMIN D 34.1 NG/ML (30.0-100.0)
[2022-03-17 18:09] LABS: HEMOGLOBIN A1c 12.7 %
== END ==
LOC: M SFHCADAM 14:50
PROVIDERS: ATTEND Physician Assistant Medical
DX: E10.65 Type 1 diabetes mellitus with hyperglycemia (principal); F33.2 Major depressive disorder, recurrent severe without psychotic features

== ENCOUNTER 2022-04-05 22:27 | Emergency (ER) | payer OTHER ==
[~2022-04-05] VITALS: Ht 160 cm; Wt 65.4 kg
[2022-04-05 22:28] VITALS: BP 141/87
[2022-04-05] MEDS ORDERED: EFFE75CA2 PO (22:44)
[2022-04-05] MEDS ORDERED: MAGN400C PO (22:46)
[2022-04-05] MEDS ORDERED: VALA1TAB5 PO (22:46)
[2022-04-05 23:07] LABS: VENOUS BASE EXCESS -0.4 (-2.0-2.0); VENOUS HCO3 25.1 MEQ/L (23.0-27.0); VENOUS O2 SATURATION 83.4 % (60.0-80.0); VENOUS PARTIAL PRESSURE CO2 44.2 mmHg (38.0-50.0); VENOUS PARTIAL PRESSURE O2 47.2 mmHg (30.0-50.0); VENOUS PH 7.372 UNITS (7.330-7.430); VENOUS STANDARD HCO3 23.7 MEQ/L; VENOUS TOTAL CO2 26.5 MEQ/L (24.0-28.0)
[2022-04-05 23:10] LABS: BASO % 0.3 % (0.0-1.0); EOS # 0.1 10^3/uL (0.0-0.5); EOS % 1.1 % (0.0-3.0); HEMATOCRIT 43.9 % (36.0-47.0); HEMOGLOBIN 14.8 g/dl (12.0-15.5); LYMPH % 21.2 % (24.0-44.0); MEAN CORPUSCULAR HGB CONC 33.7 g/dl (32.0-36.5); MEAN CORPUSCULAR VOLUME 85.9 fl (80.0-96.0); MONO # 0.7 10^3/uL (0.0-0.8); MONO % 7.6 % (2.0-8.0); NEUTROPHILS # 6.6 10^3/uL (1.5-8.5); NEUTROPHILS % 69.6 % (36.0-66.0); PLATELET COUNT, AUTOMATED 343 10^3/uL (150-450); RED BLOOD COUNT 5.11 10^6/uL (4.00-5.40); WHITE BLOOD COUNT 9.5 10^3/uL (4.0-10.0)
[2022-04-05 23:29] LABS: HCG, SERUM QUALITATIVE NEGATIVE (NEGATIVE); OSMOLALITY SERUM 294 MOSM/KG (275-295)
[2022-04-05 23:30] LABS: HEMOGLOBIN A1c 11.7 %
[2022-04-05 23:32] LABS: ALT/SGPT 17 U/L (12-78); BILIRUBIN,DIRECT 0.2 MG/DL (0.0-0.2); BILIRUBIN,TOTAL 0.7 MG/DL (0.2-1.0); BLOOD UREA NITROGEN 11 MG/DL (7-18); CALCIUM LEVEL 8.6 MG/DL (8.5-10.1); CARBON DIOXIDE LEVEL 27 MEQ/L (21-32); CHLORIDE LEVEL 103 MEQ/L (98-107); CREATININE FOR GFR 0.64 MG/DL (0.55-1.30); GLOMERULAR FILTRATION RATE > 60.0 (>60); GLUCOSE, FASTING 292 MG/DL (70-100); LIPASE 58 U/L (73-393); POTASSIUM SERUM 3.8 MEQ/L (3.5-5.1); SODIUM LEVEL 136 MEQ/L (136-145); TOTAL PROTEIN 6.5 GM/DL (6.4-8.2)
[2022-04-06 01:07] LABS: ACETONE/KETONE 12.34 MG/DL (<2.81)
[2022-04-06] MEDS ORDERED: ONDA4TAB6 PO (15:45)
== END 2022-04-06 04:42 | disposition left against medical advice (07) ==
LOC: M ED 22:27
DX: Z53.21 Procedure and treatment not carried out due to patient leaving prior to being seen by health care provider (principal)

== ENCOUNTER 2022-04-06 10:50 | Emergency (ER) | payer OTHER ==
[~2022-04-06] VITALS: Ht 160 cm; Wt 65.2 kg
[~2022-04-06 10:50] MED LIST changes: +EFFE75CA2 PO; +MAGN400C PO; +VALA1TAB5 PO
[2022-04-06] MEDS ORDERED: ONDANSETRON 4MG 2ML VIAL IV ONE (13:30)
[2022-04-06] MEDS ORDERED: NS 1,000 ML IV ONE (13:30)
[2022-04-06 14:28] LABS: BASO % 0.3 % (0.0-1.0); EOS % 0.2 % (0.0-3.0); HEMATOCRIT 46.7 % (36.0-47.0); HEMOGLOBIN 15.9 g/dl (12.0-15.5); LYMPH # 1.6 10^3/uL (1.5-5.0); LYMPH % 16.8 % (24.0-44.0); MEAN CORPUSCULAR HEMOGLOBIN 29.3 pg (27.0-33.0); MEAN CORPUSCULAR VOLUME 86.2 fl (80.0-96.0); MONO # 0.7 10^3/uL (0.0-0.8); MONO % 6.9 % (2.0-8.0); NEUTROPHILS # 7.2 10^3/uL (1.5-8.5); NEUTROPHILS % 75.6 % (36.0-66.0); PLATELET COUNT, AUTOMATED 356 10^3/uL (150-450); RED BLOOD COUNT 5.42 10^6/uL (4.00-5.40); WHITE BLOOD COUNT 9.5 10^3/uL (4.0-10.0)
[2022-04-06 14:30] LABS: APPEARANCE, URINE HAZY (CLEAR); BACTERIA, URINE AUTO 1+ (NEGATIVE); BILIRUBIN, URINE AUTO NEGATIVE (NEGATIVE); BLOOD, URINE BLOOD 1+ (NEGATIVE); COLOR, URINE YELLOW (YELLOW); GLUCOSE, URINE (UA) AUTO NEGATIVE (NEGATIVE); KETONE, URINE AUTO 2+ mg/dL (NEGATIVE); LEUKOCYTE ESTERASE, URINE AUTO 2+ (NEGATIVE); MUCUS, URINE SMALL (NEGATIVE); NITRITE, URINE AUTO NEGATIVE (NEGATIVE); PROTEIN, URINE AUTO 1+ mg/dL (NEGATIVE); RBC, URINE AUTO 5 /HPF (0-3); SPECIFIC GRAVITY URINE AUTO 1.015 (1.002-1.035); SQUAMOUS EPITHELIAL CELL UR AU 4 /HPF (0-6); UROBILINOGEN, URINE AUTO 0.2 mg/dL (0.0-2.0); WBC, URINE AUTO 15 /HPF (0-3)
[2022-04-06] MEDS ORDERED: ISOVUE-370 76% 100ML VIAL As Ordered ONE (14:46)
[2022-04-06 15:00] LABS: ACETONE/KETONE 7.36 MG/DL (<2.81); ALBUMIN 2.9 GM/DL (3.2-5.2); BILIRUBIN,DIRECT 0.1 MG/DL (0.0-0.2); BILIRUBIN,TOTAL 0.6 MG/DL (0.2-1.0); TOTAL PROTEIN 6.4 GM/DL (6.4-8.2)
[2022-04-06] MEDS ORDERED: ONDA4TAB6 PO (15:45)
[2022-04-06] MEDS ORDERED: KETOROLAC 30 MG/ML 1ML VIAL IV ONE (15:45)
[2022-04-06 15:54] VITALS: BP 127/84
== END 2022-04-06 16:05 | disposition home or self-care (01) ==
LOC: M ED 10:50
DX: R11.2 Nausea with vomiting, unspecified (principal); R10.9 Unspecified abdominal pain; E11.9 Type 2 diabetes mellitus without complications; Z79.3 Long term (current) use of hormonal contraceptives; Z79.4 Long term (current) use of insulin; Z79.890 Hormone replacement therapy
CPT/HCPCS: 36600; 74177; 80047; 80076; 81001; 82010; 82803; 83690; 84702; 85025; 87486; 87581; 87633; 87798; 96361; 96374; 96375; 99284; J1885; J2405; Q9967

== ENCOUNTER → 2022-04-09 | Outpatient (REF) | payer OTHER ==
[~2022-04-09] MED LIST changes: +ONDA4TAB6 PO
[2022-04-09 16:25] LABS: BASO % 0.6 % (0.0-1.0); EOS # 0.1 10^3/uL (0.0-0.5); EOS % 1.8 % (0.0-3.0); HEMATOCRIT 44.4 % (36.0-47.0); HEMOGLOBIN 14.8 g/dl (12.0-15.5); LYMPH # 1.7 10^3/uL (1.5-5.0); LYMPH % 23.5 % (24.0-44.0); MEAN CORPUSCULAR HEMOGLOBIN 28.6 pg (27.0-33.0); MEAN CORPUSCULAR HGB CONC 33.3 g/dl (32.0-36.5); MEAN CORPUSCULAR VOLUME 85.9 fl (80.0-96.0); MONO # 0.4 10^3/uL (0.0-0.8); MONO % 6.1 % (2.0-8.0); NEUTROPHILS # 4.9 10^3/uL (1.5-8.5); NEUTROPHILS % 67.6 % (36.0-66.0); PLATELET COUNT, AUTOMATED 387 10^3/uL (150-450); RED BLOOD COUNT 5.17 10^6/uL (4.00-5.40); WHITE BLOOD COUNT 7.2 10^3/uL (4.0-10.0)
[2022-04-09 16:35] LABS: APPEARANCE, URINE CLOUDY (CLEAR); BACTERIA, URINE AUTO 1+ (NEGATIVE); BILIRUBIN, URINE AUTO NEGATIVE (NEGATIVE); BLOOD, URINE BLOOD NEGATIVE (NEGATIVE); COLOR, URINE YELLOW (YELLOW); GLUCOSE, URINE (UA) AUTO 1+ mg/dL (NEGATIVE); KETONE, URINE AUTO TRACE mg/dL (NEGATIVE); LEUKOCYTE ESTERASE, URINE AUTO TRACE (NEGATIVE); MUCUS, URINE SMALL (NEGATIVE); NITRITE, URINE AUTO NEGATIVE (NEGATIVE); PROTEIN, URINE AUTO 1+ mg/dL (NEGATIVE); RBC, URINE AUTO 4 /HPF (0-3); SPECIFIC GRAVITY URINE AUTO 1.024 (1.002-1.035); SQUAMOUS EPITHELIAL CELL UR AU 16 /HPF (0-6); UROBILINOGEN, URINE AUTO 0.2 mg/dL (0.0-2.0); WBC, URINE AUTO 21 /HPF (0-3)
[2022-04-09 16:44] LABS: ACETONE/KETONE 5.48 MG/DL (<2.81); ALBUMIN 3.3 GM/DL (3.2-5.2); ALT/SGPT 17 U/L (12-78); BILIRUBIN,TOTAL 0.3 MG/DL (0.2-1.0); BLOOD UREA NITROGEN 16 MG/DL (7-18); CALCIUM LEVEL 9.2 MG/DL (8.5-10.1); CARBON DIOXIDE LEVEL 28 MEQ/L (21-32); CHLORIDE LEVEL 103 MEQ/L (98-107); CREATININE FOR GFR 0.68 MG/DL (0.55-1.30); GLOMERULAR FILTRATION RATE > 60.0 (>60); GLUCOSE, FASTING 193 MG/DL (70-100); POTASSIUM SERUM 3.9 MEQ/L (3.5-5.1); SODIUM LEVEL 136 MEQ/L (136-145); TOTAL PROTEIN 6.9 GM/DL (6.4-8.2)
== END ==
LOC: M SFHCADAM 12:39
PROVIDERS: ATTEND Physician Assistant
DX: N12 Tubulo-interstitial nephritis, not specified as acute or chronic (principal); R19.7 Diarrhea, unspecified

== ENCOUNTER → 2022-09-09 | Outpatient (REF) | payer OTHER | LOC: M SFHCWAGY 16:41 | PROVIDERS: ATTEND Advanced Practice Midwife | DX: Z12.4 Encounter for screening for malignant neoplasm of cervix (principal) ==

== ENCOUNTER → 2022-10-16 | Outpatient (REF) | payer OTHER ==
[2022-10-17 14:52] LABS: APPEARANCE, URINE MANUAL CLEAR (CLEAR); BILIRUBIN, URINE MANUAL NEGATIVE (NEGATIVE); BLOOD URINE MANUAL NEGATIVE (NEGATIVE); COLOR, URINE MANUAL YELLOW (YELLOW); KETONE, URINE MANUAL NEGATIVE (NEGATIVE); NITRITE, URINE MANUAL NEGATIVE (NEGATIVE); PROTEIN, URINE MANUAL NEGATIVE (NEGATIVE); UROBILINOGEN, URINE MANUAL NORMAL (NORMAL)
[2022-10-17 14:53] LABS: GLUCOSE, URINE (UA) MANUAL 2+(250 MG/DL) mg/dL (NEGATIVE); LEUKOCYTE ESTERASE, URINE MAN NEGATIVE (NEGATIVE)
== END ==
LOC: M SFHCADAM 12:51
PROVIDERS: ATTEND Physician Assistant Medical
DX: N30.00 Acute cystitis without hematuria (principal)

== ENCOUNTER 2023-04-05 15:48 | Emergency (ER) | payer OTHER ==
[~2023-04-05] VITALS: Ht 160 cm; Wt 66.8 kg
[~2023-04-05 15:48] MED LIST changes: +SENN-186 PO; -SENN-80 PO
[2023-04-05] MEDS ORDERED: OLAN1TAB16 (16:08)
[2023-04-05] MEDS ORDERED: LAMO25TA4 (16:08)
[2023-04-05 16:35] LABS: BASO % 0.6 % (0.0-1.0); EOS # 0.1 10^3/uL (0.0-0.5); EOS % 1.3 % (0.0-3.0); HEMATOCRIT 41.7 % (36.0-47.0); HEMOGLOBIN 14.4 g/dl (12.0-15.5); LYMPH # 1.8 10^3/uL (1.5-5.0); LYMPH % 33.5 % (24.0-44.0); MEAN CORPUSCULAR HEMOGLOBIN 28.1 pg (27.0-33.0); MEAN CORPUSCULAR HGB CONC 34.5 g/dl (32.0-36.5); MEAN CORPUSCULAR VOLUME 81.3 fl (80.0-96.0); MONO # 0.4 10^3/uL (0.0-0.8); MONO % 6.7 % (2.0-8.0); NEUTROPHILS % 57.7 % (36.0-66.0); PLATELET COUNT, AUTOMATED 276 10^3/uL (150-450); RED BLOOD COUNT 5.13 10^6/uL (4.00-5.40); WHITE BLOOD COUNT 5.3 10^3/uL (4.0-10.0)
[2023-04-05 17:10] LABS: LIPASE 21 U/L (12-53)
[2023-04-05 17:12] LABS: ALBUMIN 3.6 G/DL (3.2-5.2); ALKALINE PHOSPHATASE 102 U/L (46-116); ALT/SGPT < 9 U/L (7.0-40); AST/SGOT 12 U/L (<34); BILIRUBIN,DIRECT < 0.1 MG/DL (<0.4); BILIRUBIN,TOTAL 0.4 MG/DL (0.3-1.2); BLOOD UREA NITROGEN 8 MG/DL (9-23); CALCIUM LEVEL 8.9 MG/DL (8.5-10.1); CARBON DIOXIDE LEVEL 26 MMOL/L (20-31); CHLORIDE LEVEL 108 MMOL/L (98-107); CREATININE FOR GFR 0.47 MG/DL (0.55-1.30); GLOMERULAR FILTRATION RATE > 60.0 (>60); GLUCOSE, FASTING 194 MG/DL (60-100); MAGNESIUM LEVEL 1.6 MG/DL (1.8-2.4); PHOSPHORUS LEVEL 3.5 MG/DL (2.5-4.9); POTASSIUM SERUM 4.4 MMOL/L (3.5-5.1); SODIUM LEVEL 140 MMOL/L (136-145); TOTAL PROTEIN 6.8 G/DL (5.7-8.2)
[2023-04-05 17:13] LABS: ACETONE/KETONE 0.16 MMOL/L (0.02-0.27)
[2023-04-05 17:17] LABS: OSMOLALITY SERUM 292 MOSM/KG (275-295)
[2023-04-05 17:23] LABS: HCG, SERUM QUALITATIVE NEGATIVE (NEGATIVE)
[2023-04-05] MEDS ORDERED: NS 1,000 ML IV ONE (17:55)
[2023-04-05] MEDS ORDERED: MAG SULF 1GM/100ML (MAG RUN) 1 GM in IV 1 EA IV ONE (17:55)
[2023-04-05] MEDS ORDERED: ACETAMINOPHEN TAB 650MG DOSE (2X325MG) PO ONE (18:00)
[2023-04-05] MEDS ORDERED: ISOVUE-370 76% 100ML VIAL As Ordered ONE (18:01)
[2023-04-05 19:07] LABS: RSV AMPLIFICATION NEGATIVE (NEGATIVE)
[2023-04-05] MEDS ORDERED: ONDA4TAB6 PO (21:20)
[2023-04-05 22:06] VITALS: BP 136/71; TEMP 98.1; O2SAT 98
== END 2023-04-05 22:11 | disposition home or self-care (01) ==
LOC: M ED 15:48
DX: R19.7 Diarrhea, unspecified (principal); E11.9 Type 2 diabetes mellitus without complications; Z79.4 Long term (current) use of insulin; Z79.899 Other long term (current) drug therapy; Z91.018 Allergy to other foods
CPT/HCPCS: 74177; 80047; 80048; 80076; 81001; 82010; 83690; 83735; 83930; 84100; 84703; 85025; 87086; 87631; 96365; 96366; 99284; J3475; Q9967

== ENCOUNTER → 2023-06-02 | Outpatient (REF) | payer OTHER ==
[~2023-06-02] MED LIST changes: +LAMO25TA4; +OLAN1TAB16
[2023-06-02 13:49] LABS: HEMOGLOBIN A1c 9.5 % (4.0-6.0)
== END ==
LOC: M SFHCADAM 10:08
PROVIDERS: ATTEND Physician Assistant Medical
DX: E10.65 Type 1 diabetes mellitus with hyperglycemia (principal); F33.2 Major depressive disorder, recurrent severe without psychotic features; E83.42 Hypomagnesemia

== ENCOUNTER → 2023-06-29 | Outpatient (REF) | payer OTHER ==
[2023-06-29 13:35] LABS: HEMATOCRIT 39.9 % (36.0-47.0); HEMOGLOBIN 13.4 g/dl (12.0-15.5); MEAN CORPUSCULAR HEMOGLOBIN 28.8 pg (27.0-33.0); MEAN CORPUSCULAR HGB CONC 33.6 g/dl (32.0-36.5); MEAN CORPUSCULAR VOLUME 85.6 fl (80.0-96.0); PLATELET COUNT, AUTOMATED 335 10^3/uL (150-450); RED BLOOD COUNT 4.66 10^6/uL (4.00-5.40); WHITE BLOOD COUNT 6.6 10^3/uL (4.0-10.0)
[2023-06-29 14:41] LABS: HIV 1&2 SCREEN NEGATIVE (NEGATIVE)
[2023-06-29 14:48] LABS: HEPATITIS C VIRUS ABY INDEX 0.04 INDEX (<0.8)
[2023-06-29 14:50] LABS: GC DNA AMPLIFICATION NEGATIVE (NEGATIVE)
== END ==
LOC: M SFHCADAM 09:39
PROVIDERS: ATTEND Physician Assistant Medical
DX: Z34.81 Encounter for supervision of other normal pregnancy, first trimester (principal); E83.42 Hypomagnesemia

== ENCOUNTER → 2023-08-03 | Outpatient (REF) | payer OTHER ==
[2023-08-03 13:17] LABS: RSV AMPLIFICATION POSITIVE (NEGATIVE)
== END ==
LOC: M LAB REF 11:43
PROVIDERS: ATTEND Physician Assistant Medical
DX: R50.9 Fever, unspecified (principal); R05.9 Cough, unspecified

== ENCOUNTER → 2023-08-05 | Outpatient (CLI) | payer OTHER | LOC: M PLALAB 14:01 | PROVIDERS: ATTEND Specialist | DX: Z34.81 Encounter for supervision of other normal pregnancy, first trimester (principal) ==

== ENCOUNTER → 2023-08-05 | Outpatient (CLI) | payer OTHER | LOC: M WHC 13:31 | PROVIDERS: ATTEND Specialist | DX: O24.011 Pre-existing type 1 diabetes mellitus, in pregnancy, first trimester (principal); Z3A.12 12 weeks gestation of pregnancy; N83.11 Corpus luteum cyst of right ovary; O26.891 Other specified pregnancy related conditions, first trimester ==

== ENCOUNTER 2023-12-21 16:00 | Outpatient (CLI) | payer OTHER ==
[~2023-12-21] VITALS: Ht 160 cm; Wt 83.2 kg
[2023-12-21 16:16] VITALS: BP 124/75
[2023-12-21] MEDS ORDERED: LANTINJ4 SC (16:23)
[2023-12-21] MEDS ORDERED: PRENTAB9 PO (16:27)
== END 2023-12-21 18:50 | disposition home or self-care (01) ==
LOC: M LDO 16:00
PROVIDERS: ATTEND Advanced Practice Midwife
DX: O24.013 Pre-existing type 1 diabetes mellitus, in pregnancy, third trimester (principal); E10.65 Type 1 diabetes mellitus with hyperglycemia; O09.293 Supervision of pregnancy with other poor reproductive or obstetric history, third trimester; O99.343 Other mental disorders complicating pregnancy, third trimester; F32.1 Major depressive disorder, single episode, moderate; Z3A.32 32 weeks gestation of pregnancy; Z91.018 Allergy to other foods; Z03.73 Encounter for suspected fetal anomaly ruled out
CPT/HCPCS: 59025; 76815; 76819; 76820; G0463

== ENCOUNTER 2023-12-27 08:55 | Inpatient (IN) | payer OTHER ==
[2023-12-27] VITALS (8 sets, daily range): BP systolic 128–181; BP diastolic 81–92; O2SAT 100
[~2023-12-27] VITALS: Ht 160 cm; Wt 80.9 kg
[~2023-12-27 08:55] MED LIST changes: +PRENTAB9 PO
[2023-12-27] MEDS ORDERED: ONDANSETRON 4MG 2ML VIAL As Ordered ONE (09:13)
[2023-12-27] MEDS: ONDANSETRON 4MG 2ML VIAL IV ONE (09:17)
[2023-12-27] MEDS: LACTATED RINGER'S 1000 ML IV STA (09:17)
[2023-12-27] MEDS ORDERED: LABETALOL 100MG/20ML VIAL As Ordered ONE (09:26)
[2023-12-27] MEDS: LABETALOL 100MG/20ML VIAL IV STA (09:29)
[2023-12-27 09:47] LABS: HEMATOCRIT 37.5 % (36.0-47.0); HEMOGLOBIN 12.7 g/dl (12.0-15.5); MEAN CORPUSCULAR HEMOGLOBIN 28.3 pg (27.0-33.0); MEAN CORPUSCULAR HGB CONC 33.9 g/dl (32.0-36.5); MEAN CORPUSCULAR VOLUME 83.7 fl (80.0-96.0); PLATELET COUNT, AUTOMATED 281 10^3/uL (150-450); RED BLOOD COUNT 4.48 10^6/uL (4.00-5.40); WHITE BLOOD COUNT 7.8 10^3/uL (4.0-10.0)
[2023-12-27] MEDS: LEVEMIR (INSULIN DETEMIR) 1 UNITS/0.01ML SC SCH (10:03)
[2023-12-27 10:11] LABS: LIPASE 20 U/L (12-53)
[2023-12-27 10:12] LABS: AMYLASE 27 U/L (30-118); LDH LACTATE DEHYDROGENASE 183 U/L (120-246)
[2023-12-27 10:13] LABS: ALBUMIN 2.7 G/DL (3.2-5.2); ALKALINE PHOSPHATASE 127 U/L (46-116); ALT/SGPT 21 U/L (7.0-40); AST/SGOT 23 U/L (<34); BILIRUBIN,TOTAL 0.2 MG/DL (0.3-1.2); BLOOD UREA NITROGEN 9 MG/DL (9-23); CALCIUM LEVEL 8.9 MG/DL (8.5-10.1); CARBON DIOXIDE LEVEL < 10.0 MMOL/L (20-31); CHLORIDE LEVEL 106 MMOL/L (98-107); CREATININE FOR GFR 0.69 MG/DL (0.55-1.30); GLOMERULAR FILTRATION RATE > 60.0 (>60); GLUCOSE, FASTING 212 MG/DL (60-100); POTASSIUM SERUM 4.1 MMOL/L (3.5-5.1); SODIUM LEVEL 136 MMOL/L (136-145); TOTAL PROTEIN 6.8 G/DL (5.7-8.2)
[2023-12-27] MEDS: PROMETHAZINE 25MG/ML 1ML VIAL IV PRN (10:13)
[2023-12-27 10:18] LABS: URIC ACID 9.9 MG/DL (3.1-7.8)
[2023-12-27] MEDS: LR 1,000 ML IV SCH (10:23)
[2023-12-27] MEDS ORDERED: MAGN200T PO (10:27)
[2023-12-27] MEDS ORDERED: PEPC1TAB5 PO (10:27)
[2023-12-27] MEDS ORDERED: HOME MED LIST COMPLETE! XX SCH (10:30)
[2023-12-27 11:21] LABS: TOTAL PROTEIN,RANDOM URINE 61.3 MG/DL (0.0-14.0)
[2023-12-27 11:24] LABS: AMPHETAMINES LEVEL URINE NEGATIVE (NEGATIVE); BARBITURATES URINE NEGATIVE (NEGATIVE); BENZODIAZEPINES URINE NEGATIVE (NEGATIVE); COCAINE METABOLITE URINE NEGATIVE (NEGATIVE); METHADONE URINE NEGATIVE (NEGATIVE); OPIATES URINE NEGATIVE (NEGATIVE); PHENCYCLIDINE URINE NEGATIVE (NEGATIVE)
[2023-12-27 11:26] LABS: CREATININE,RANDOM URINE 68.4 MG/DL
[2023-12-27 11:43] LABS: CANNABINOIDS URINE POSITIVE (NEGATIVE)
[2023-12-27] MEDS ORDERED: PERCOCET 5MG/325MG TAB PO PRN (11:50)
[2023-12-27] MEDS: MORPHINE 4 MG/ML 1ML VIAL IV PRN (12:02)
[2023-12-27] MEDS: BETAMETHASONE SOLUSPAN 6MG/ML 5ML VIAL IM SCH (12:51)
[2023-12-27] MEDS ORDERED: GLUCOSE 4GM CHEW TABLET PO PRN (13:50)
[2023-12-27] MEDS ORDERED: GLUCAGON INJ 1MG VIAL SC PRN (13:50)
[2023-12-27] MEDS ORDERED: DEXTROSE 50% 50ML SYRINGE IV PRN (13:50)
[2023-12-27] MEDS: INSULIN LISPRO (NovoLOG) PER UNIT SC SCH (14:17)
[2023-12-27] MEDS: ONDANSETRON 4MG 2ML VIAL IV PRN (17:18)
[2023-12-28] VITALS (16 sets, daily range): BP systolic 105–183; BP diastolic 58–100; TEMP 97.1–98.8; O2SAT 93–98
[2023-12-28] MEDS: PANTOPRAZOLE SODIUM 40 MG in D5W 50 ML IV SCH (02:30)
[2023-12-28] MEDS: LABETALOL 100MG/20ML VIAL IV STA ×3 (03:18→14:10)
[2023-12-28] MEDS: CAPSAICIN 0.025% CR 60 GM TOP SCH (06:14)
[2023-12-28 06:32] LABS: ALBUMIN 2.5 G/DL (3.2-5.2); ALKALINE PHOSPHATASE 112 U/L (46-116); ALT/SGPT 20 U/L (7.0-40); AST/SGOT 22 U/L (<34); BILIRUBIN,TOTAL 0.2 MG/DL (0.3-1.2); BLOOD UREA NITROGEN 8 MG/DL (9-23); CALCIUM LEVEL 8.6 MG/DL (8.5-10.1); CARBON DIOXIDE LEVEL < 10.0 MMOL/L (20-31); CHLORIDE LEVEL 106 MMOL/L (98-107); CREATININE FOR GFR 0.68 MG/DL (0.55-1.30); GLOMERULAR FILTRATION RATE > 60.0 (>60); GLUCOSE, FASTING 220 MG/DL (60-100); POTASSIUM SERUM 4.2 MMOL/L (3.5-5.1); SODIUM LEVEL 134 MMOL/L (136-145)
[2023-12-28 06:34] LABS: HEMOGLOBIN 11.9 g/dl (12.0-15.5); MEAN CORPUSCULAR HEMOGLOBIN 28.5 pg (27.0-33.0); MEAN CORPUSCULAR VOLUME 83.9 fl (80.0-96.0); PLATELET COUNT, AUTOMATED 295 10^3/uL (150-450); RED BLOOD COUNT 4.17 10^6/uL (4.00-5.40); WHITE BLOOD COUNT 15.3 10^3/uL (4.0-10.0)
[2023-12-28] MEDS: INSULIN LISPRO (NovoLOG) PER UNIT SC ONE (07:29)
[2023-12-28] MEDS: LEVEMIR (INSULIN DETEMIR) 1 UNITS/0.01ML SC SCH (08:47)
[2023-12-28] MEDS: ACETAMINOPHEN 500 MG TAB PO ONE (12:03)
[2023-12-28] MEDS: NS 1,000 ML IV SCH (12:44)
[2023-12-28] MEDS: ACETAMINOPHEN *IV* 1,000 MG in IV 1 EA IV ONE (12:55)
[2023-12-28 13:14] LABS: HEMOGLOBIN A1c 6.8 % (4.0-6.0)
[2023-12-28] MEDS: BUTORPHANOL 2 MG/ML 1ML VIAL IV ONE (16:02)
[2023-12-28] MEDS: D5W/0.45% SODIUM CHLORIDE 1,000 ML IV SCH (16:04)
[2023-12-28] MEDS: INSULIN REGULAR IN 0.9 % NACL 100 UNIT in IV 1 EA IV SCH (16:22)
[2023-12-28 16:25] LABS: ALBUMIN 2.4 G/DL (3.2-5.2); ALKALINE PHOSPHATASE 103 U/L (46-116); ALT/SGPT 27 U/L (7.0-40); AST/SGOT 30 U/L (<34); BILIRUBIN,TOTAL 0.3 MG/DL (0.3-1.2); BLOOD UREA NITROGEN 9 MG/DL (9-23); CALCIUM LEVEL 8.3 MG/DL (8.5-10.1); CARBON DIOXIDE LEVEL 11 MMOL/L (20-31); CHLORIDE LEVEL 109 MMOL/L (98-107); CREATININE FOR GFR 0.63 MG/DL (0.55-1.30); GLOMERULAR FILTRATION RATE > 60.0 (>60); GLUCOSE, FASTING 184 MG/DL (60-100); MAGNESIUM LEVEL 1.5 MG/DL (1.8-2.4); POTASSIUM SERUM 3.8 MMOL/L (3.5-5.1); SODIUM LEVEL 133 MMOL/L (136-145); TOTAL PROTEIN 5.7 G/DL (5.7-8.2)
[2023-12-28] MEDS: INSULIN IV RATE CHANGE DOCUMENTATION ML/HR XX SCH (17:11)
[2023-12-28] MEDS: MAG SULF 1GM/100ML (MAG RUN) 1 GM in IV 1 EA IV ONE (17:30)
[2023-12-28 20:09] LABS: ALBUMIN 2.4 G/DL (3.2-5.2); ALKALINE PHOSPHATASE 110 U/L (46-116); ALT/SGPT 22 U/L (7.0-40); AST/SGOT 28 U/L (<34); BILIRUBIN,TOTAL 0.3 MG/DL (0.3-1.2); BLOOD UREA NITROGEN 7 MG/DL (9-23); CALCIUM LEVEL 8.3 MG/DL (8.5-10.1); CARBON DIOXIDE LEVEL 13 MMOL/L (20-31); CHLORIDE LEVEL 111 MMOL/L (98-107); CREATININE FOR GFR 0.65 MG/DL (0.55-1.30); GLOMERULAR FILTRATION RATE > 60.0 (>60); GLUCOSE, FASTING 180 MG/DL (60-100); PHOSPHORUS LEVEL 1.9 MG/DL (2.5-4.9); POTASSIUM SERUM 3.6 MMOL/L (3.5-5.1); SODIUM LEVEL 137 MMOL/L (136-145); TOTAL PROTEIN 5.9 G/DL (5.7-8.2)
[2023-12-28] MEDS: HEPARIN SOD (PORCINE) 5000UNITS/ML 1ML VIAL/SYRINGE SQ SCH (20:21)
[2023-12-28] MEDS: BUTORPHANOL 2 MG/ML 1ML VIAL IV PRN (21:33)
[2023-12-28] MEDS: SODIUM PHOSPHATE INJ 30 MMOL in D5W 500 ML IV ONE (21:33)
[2023-12-28] MEDS: D5W/LR 1,000 ML IV SCH (22:08)
[2023-12-29] VITALS (18 sets, daily range): BP systolic 111–166; BP diastolic 71–97; TEMP 96.8–99.4; O2SAT 92–97
[2023-12-29] MEDS: CHLORASEPTIC SPRAY MT PRN (00:21)
[2023-12-29 00:43] LABS: ALBUMIN 2.2 G/DL (3.2-5.2); ALKALINE PHOSPHATASE 98 U/L (46-116); ALT/SGPT 19 U/L (7.0-40); AST/SGOT 33 U/L (<34); BILIRUBIN,TOTAL 0.4 MG/DL (0.3-1.2); BLOOD UREA NITROGEN 8 MG/DL (9-23); CALCIUM LEVEL 7.7 MG/DL (8.5-10.1); CARBON DIOXIDE LEVEL 15 MMOL/L (20-31); CHLORIDE LEVEL 111 MMOL/L (98-107); CREATININE FOR GFR 0.63 MG/DL (0.55-1.30); GLOMERULAR FILTRATION RATE > 60.0 (>60); GLUCOSE, FASTING 200 MG/DL (60-100); MAGNESIUM LEVEL 1.9 MG/DL (1.8-2.4); POTASSIUM SERUM 3.1 MMOL/L (3.5-5.1); SODIUM LEVEL 135 MMOL/L (136-145); TOTAL PROTEIN 5.4 G/DL (5.7-8.2)
[2023-12-29] MEDS: KCL 10MEQ/100ML SWI (KRUN) 10 MEQ in IV 1 EA IV SCH ×2 (01:10→14:44)
[2023-12-29 04:08] LABS: ALBUMIN 2.2 G/DL (3.2-5.2); ALKALINE PHOSPHATASE 98 U/L (46-116); ALT/SGPT 25 U/L (7.0-40); AST/SGOT 39 U/L (<34); BILIRUBIN,TOTAL 0.4 MG/DL (0.3-1.2); BLOOD UREA NITROGEN 8 MG/DL (9-23); CALCIUM LEVEL 7.7 MG/DL (8.5-10.1); CARBON DIOXIDE LEVEL 16 MMOL/L (20-31); CHLORIDE LEVEL 111 MMOL/L (98-107); CREATININE FOR GFR 0.62 MG/DL (0.55-1.30); GLOMERULAR FILTRATION RATE > 60.0 (>60); GLUCOSE, FASTING 160 MG/DL (60-100); MAGNESIUM LEVEL 1.9 MG/DL (1.8-2.4); PHOSPHORUS LEVEL 2.4 MG/DL (2.5-4.9); POTASSIUM SERUM 3.4 MMOL/L (3.5-5.1); SODIUM LEVEL 136 MMOL/L (136-145); TOTAL PROTEIN 5.3 G/DL (5.7-8.2)
[2023-12-29] MEDS: KCL 10MEQ/100ML SWI (KRUN) 10 MEQ in IV 1 EA IV ONE (04:44)
[2023-12-29 08:04] LABS: ALBUMIN 2.2 G/DL (3.2-5.2); ALKALINE PHOSPHATASE 100 U/L (46-116); ALT/SGPT 27 U/L (7.0-40); AST/SGOT 35 U/L (<34); BILIRUBIN,TOTAL 0.5 MG/DL (0.3-1.2); BLOOD UREA NITROGEN 8 MG/DL (9-23); CALCIUM LEVEL 7.8 MG/DL (8.5-10.1); CARBON DIOXIDE LEVEL 16 MMOL/L (20-31); CHLORIDE LEVEL 111 MMOL/L (98-107); GLOMERULAR FILTRATION RATE > 60.0 (>60); GLUCOSE, FASTING 182 MG/DL (60-100); MAGNESIUM LEVEL 1.8 MG/DL (1.8-2.4); PHOSPHORUS LEVEL 2.1 MG/DL (2.5-4.9); POTASSIUM SERUM 3.2 MMOL/L (3.5-5.1); SODIUM LEVEL 136 MMOL/L (136-145); TOTAL PROTEIN 5.3 G/DL (5.7-8.2)
[2023-12-29] MEDS ORDERED: LR 1,000 ML IV SCH (08:15)
[2023-12-29] MEDS: DOCUSATE SODIUM 100MG CAPSULE PO SCH (08:27)
[2023-12-29] MEDS: SENNA 8.6 MG TAB (SENOKOT) PO SCH (08:28)
[2023-12-29] MEDS: PANTOPRAZOLE 40MG VIAL IV SCH (08:28)
[2023-12-29] MEDS: CAPSAICIN 0.025% CR 60 GM TOP SCH (09:00)
[2023-12-29] MEDS ORDERED: ENOXAPARIN 40MG/0.4ML SYRINGE (J1650 PER 10MG) SC SCH (09:00)
[2023-12-29] MEDS: POTASSIUM CHLORIDE INJ 40 MEQ in D5W/LR 1,000 ML IV SCH (10:14)
[2023-12-29 11:27] LABS: VENOUS BASE EXCESS -7.1 (-2.0-2.0); VENOUS HCO3 15.8 MMOL/L (23.0-27.0); VENOUS O2 SATURATION 98.6 % (60.0-80.0); VENOUS PARTIAL PRESSURE CO2 24.8 mmHg (38.0-50.0); VENOUS PARTIAL PRESSURE O2 144.4 mmHg (30.0-50.0); VENOUS PH 7.422 UNITS (7.330-7.430); VENOUS STANDARD HCO3 18.7 MMOL/L; VENOUS TOTAL CO2 16.6 MMOL/L (24.0-28.0)
[2023-12-29 11:38] LABS: BASO % 0.2 % (0.0-1.0); EOS % 0.1 % (0.0-3.0); HEMATOCRIT 31.1 % (36.0-47.0); HEMOGLOBIN 10.7 g/dl (12.0-15.5); LYMPH % 5.9 % (24.0-44.0); MEAN CORPUSCULAR HEMOGLOBIN 27.8 pg (27.0-33.0); MEAN CORPUSCULAR HGB CONC 34.4 g/dl (32.0-36.5); MEAN CORPUSCULAR VOLUME 80.8 fl (80.0-96.0); MONO # 0.9 10^3/uL (0.0-0.8); MONO % 5.4 % (2.0-8.0); NEUTROPHILS # 14.5 10^3/uL (1.5-8.5); NEUTROPHILS % 84.4 % (36.0-66.0); PLATELET COUNT, AUTOMATED 238 10^3/uL (150-450); RED BLOOD COUNT 3.85 10^6/uL (4.00-5.40); WHITE BLOOD COUNT 17.2 10^3/uL (4.0-10.0)
[2023-12-29 11:52] LABS: ALBUMIN 2.1 G/DL (3.2-5.2); ALKALINE PHOSPHATASE 104 U/L (46-116); ALT/SGPT 29 U/L (7.0-40); AST/SGOT 37 U/L (<34); BILIRUBIN,TOTAL 0.5 MG/DL (0.3-1.2); BLOOD UREA NITROGEN 5 MG/DL (9-23); CALCIUM LEVEL 7.5 MG/DL (8.5-10.1); CARBON DIOXIDE LEVEL 16 MMOL/L (20-31); CHLORIDE LEVEL 111 MMOL/L (98-107); CREATININE FOR GFR 0.57 MG/DL (0.55-1.30); GLOMERULAR FILTRATION RATE > 60.0 (>60); GLUCOSE, FASTING 177 MG/DL (60-100); MAGNESIUM LEVEL 1.8 MG/DL (1.8-2.4); PHOSPHORUS LEVEL 2.1 MG/DL (2.5-4.9); POTASSIUM SERUM 3.3 MMOL/L (3.5-5.1); SODIUM LEVEL 139 MMOL/L (136-145); TOTAL PROTEIN 5.4 G/DL (5.7-8.2)
[2023-12-29] MEDS ORDERED: SODIUM BICARBONATE 325 MG TAB PO SCH (13:00)
[2023-12-29] MEDS ORDERED: POTASSIUM CHLORIDE 10MEQ SR TABLET PO ONE (13:15)
[2023-12-29] MEDS ORDERED: KCL 10MEQ/100ML SWI (KRUN) 10 MEQ in IV 1 EA IV SCH (14:00)
[2023-12-29] MEDS ORDERED: METO10TA3 PO (14:27)
[2023-12-29] MEDS ORDERED: ASPI-226 PO (14:27)
[2023-12-29] MEDS ORDERED: PYRI25TA2 PO (14:27)
[2023-12-29] MEDS ORDERED: TRAN1DIS4 TOP (14:27)
[2023-12-29] MEDS ORDERED: HOME MED LIST COMPLETE! XX SCH (14:30)
[2023-12-29] MEDS: LEVEMIR (INSULIN DETEMIR) 1 UNITS/0.01ML SC SCH (14:44)
[2023-12-29] MEDS: LR 1,000 ML IV ONE (14:53)
[2023-12-29] MEDS: SODIUM BICARBONATE 150 MEQ in D5W 1,000 ML IV SCH (15:57)
[2023-12-29 15:59] LABS: ALBUMIN 2.1 G/DL (3.2-5.2); ALKALINE PHOSPHATASE 108 U/L (46-116); ALT/SGPT 35 U/L (7.0-40); AST/SGOT 41 U/L (<34); BILIRUBIN,TOTAL 0.6 MG/DL (0.3-1.2); BLOOD UREA NITROGEN < 5 MG/DL (9-23); CALCIUM LEVEL 7.6 MG/DL (8.5-10.1); CARBON DIOXIDE LEVEL 18 MMOL/L (20-31); CHLORIDE LEVEL 111 MMOL/L (98-107); CREATININE FOR GFR 0.54 MG/DL (0.55-1.30); GLOMERULAR FILTRATION RATE > 60.0 (>60); GLUCOSE, FASTING 164 MG/DL (60-100); MAGNESIUM LEVEL 1.9 MG/DL (1.8-2.4); PHOSPHORUS LEVEL 1.5 MG/DL (2.5-4.9); POTASSIUM SERUM 3.6 MMOL/L (3.5-5.1); SODIUM LEVEL 140 MMOL/L (136-145); TOTAL PROTEIN 5.5 G/DL (5.7-8.2)
[2023-12-29] MEDS ORDERED: ONDANSETRON 4MG 2ML VIAL IV PRN (16:50)
[2023-12-29] MEDS: ONDANSETRON 4MG 2ML VIAL IV ONE (17:10)
[2023-12-29] MEDS: POTASSIUM PHOSPHATE INJ 30 MMOL in D5W 500 ML IV ONE (18:54)
[2023-12-29 19:51] LABS: ALKALINE PHOSPHATASE 106 U/L (46-116); ALT/SGPT 40 U/L (7.0-40); AST/SGOT 47 U/L (<34); BILIRUBIN,TOTAL 0.6 MG/DL (0.3-1.2); BLOOD UREA NITROGEN 6 MG/DL (9-23); CALCIUM LEVEL 7.8 MG/DL (8.5-10.1); CARBON DIOXIDE LEVEL 19 MMOL/L (20-31); CHLORIDE LEVEL 110 MMOL/L (98-107); CREATININE FOR GFR 0.53 MG/DL (0.55-1.30); GLOMERULAR FILTRATION RATE > 60.0 (>60); GLUCOSE, FASTING 211 MG/DL (60-100); MAGNESIUM LEVEL 1.7 MG/DL (1.8-2.4); PHOSPHORUS LEVEL 1.6 MG/DL (2.5-4.9); SODIUM LEVEL 136 MMOL/L (136-145); TOTAL PROTEIN 5.4 G/DL (5.7-8.2)
[2023-12-29] MEDS: MAG SULF 1GM/100ML (MAG RUN) 1 GM in IV 1 EA IV ONE (20:40)
[2023-12-29] MEDS: LR 1,000 ML IV SCH (20:40)
[2023-12-30] VITALS (12 sets, daily range): BP systolic 137–176; BP diastolic 80–103; TEMP 97.7–99.3; O2SAT 92–98
[2023-12-30] MEDS: SODIUM PHOSPHATE INJ 30 MMOL in D5W 500 ML IV ONE (00:19)
[2023-12-30 05:42] LABS: BASO % 0.3 % (0.0-1.0); HEMATOCRIT 28.6 % (36.0-47.0); LYMPH # 1.3 10^3/uL (1.5-5.0); LYMPH % 10.9 % (24.0-44.0); MEAN CORPUSCULAR HEMOGLOBIN 27.9 pg (27.0-33.0); MEAN CORPUSCULAR VOLUME 79.7 fl (80.0-96.0); MONO # 0.7 10^3/uL (0.0-0.8); MONO % 5.6 % (2.0-8.0); NEUTROPHILS # 9.2 10^3/uL (1.5-8.5); NEUTROPHILS % 79.1 % (36.0-66.0); PLATELET COUNT, AUTOMATED 200 10^3/uL (150-450); RED BLOOD COUNT 3.59 10^6/uL (4.00-5.40); WHITE BLOOD COUNT 11.6 10^3/uL (4.0-10.0)
[2023-12-30 05:59] LABS: ALBUMIN 1.7 G/DL (3.2-5.2); ALKALINE PHOSPHATASE 100 U/L (46-116); ALT/SGPT 55 U/L (7.0-40); AST/SGOT 59 U/L (<34); BILIRUBIN,TOTAL 0.5 MG/DL (0.3-1.2); BLOOD UREA NITROGEN < 5 MG/DL (9-23); CALCIUM LEVEL 7.1 MG/DL (8.5-10.1); CARBON DIOXIDE LEVEL 22 MMOL/L (20-31); CHLORIDE LEVEL 106 MMOL/L (98-107); CREATININE FOR GFR 0.52 MG/DL (0.55-1.30); GLOMERULAR FILTRATION RATE > 60.0 (>60); GLUCOSE, FASTING 197 MG/DL (60-100); MAGNESIUM LEVEL 1.9 MG/DL (1.8-2.4); PHOSPHORUS LEVEL 3.9 MG/DL (2.5-4.9); POTASSIUM SERUM 3.1 MMOL/L (3.5-5.1); SODIUM LEVEL 136 MMOL/L (136-145); TOTAL PROTEIN 4.9 G/DL (5.7-8.2)
[2023-12-30] MEDS: KCL 10MEQ/100ML SWI (KRUN) 10 MEQ in IV 1 EA IV SCH (06:31)
[2023-12-30] MEDS: HALOPERIDOL 5MG/ML 1ML VIAL IV ONE (10:55)
[2023-12-30] MEDS: POTASSIUM CHLORIDE INJ 40 MEQ in D5W/LR 1,000 ML IV SCH (14:56)
[2023-12-30] MEDS: MAG SULF 1GM/100ML (MAG RUN) 1 GM in IV 1 EA IV ONE (17:00)
[2023-12-30] MEDS: HALOPERIDOL 5MG/ML 1ML VIAL IV PRN (17:02)
[2023-12-30] MEDS: SUCRALFATE 1 GM TAB PO ONE (17:30)
[2023-12-30] MEDS: SCOPOLAMINE 1MG TRANSDERMAL PATCH TOP ONE (17:30)
[2023-12-30 19:39] LABS: HEMOGLOBIN 11.3 g/dl (12.0-15.5); MEAN CORPUSCULAR HEMOGLOBIN 27.8 pg (27.0-33.0); MEAN CORPUSCULAR HGB CONC 35.3 g/dl (32.0-36.5); MEAN CORPUSCULAR VOLUME 78.6 fl (80.0-96.0); PLATELET COUNT, AUTOMATED 198 10^3/uL (150-450); RED BLOOD COUNT 4.07 10^6/uL (4.00-5.40); WHITE BLOOD COUNT 13.6 10^3/uL (4.0-10.0)
[2023-12-30] MEDS: LABETALOL 100MG/20ML VIAL IV STA (19:39)
[2023-12-30 19:58] LABS: URIC ACID 4.5 MG/DL (3.1-7.8)
[2023-12-30 20:00] LABS: LDH LACTATE DEHYDROGENASE 250 U/L (120-246)
[2023-12-30] MEDS: PROMETHAZINE 25MG/ML 1ML VIAL IV PRN (20:02)
[2023-12-30 20:20] LABS: ALT/SGPT 85 U/L (7.0-40); AST/SGOT 86 U/L (<34); BILIRUBIN,TOTAL 0.8 MG/DL (0.3-1.2); CREATININE FOR GFR 0.51 MG/DL (0.55-1.30); GLOMERULAR FILTRATION RATE > 60.0 (>60)
[2023-12-30] MEDS ORDERED: MAGNESIUM SULFATE 4% INJ 20GM/500ML (40MG/ML) As Ordered ONE (20:29)
[2023-12-30] MEDS ORDERED: TRANEXAMIC ACID INJection 1,000 MG in NS 100 ML IV PRN (20:30)
[2023-12-30] MEDS ORDERED: OXYTOCIN INJ 10UNITS/ML 1ML VIAL IM PRN (20:30)
[2023-12-30] MEDS ORDERED: CARBOPROST TROMETHAMINE 250 MCG/ML AMP IM PRN (20:30)
[2023-12-30] MEDS ORDERED: OXYTOCIN DRIP 30 UNITS in IV 1 EA IV PRN (20:30)
[2023-12-30] MEDS ORDERED: MAGNESIUM *L&D* 4GM/100ML BAG (40MG/ML) As Ordered ONE (20:33)
[2023-12-30] MEDS ORDERED: LR 1,000 ML IV SCH (20:35)
[2023-12-30] MEDS: ceFAZolin SOD 2 GM in IV 1 EA IV ONE (20:42)
[2023-12-30] MEDS: MAG Sulf (L&D) 4 GM/100 ML 4 GM in IV 1 EA IV ONE (20:42)
[2023-12-30] MEDS: MAG Sulf (OBGYN) 20GM/500ML 20,000 MG in IV 1 EA IV SCH (20:42)
[2023-12-30] MEDS ORDERED: LEVEMIR (INSULIN DETEMIR) 1 UNITS/0.01ML SC SCH (21:00)
[2023-12-30] MEDS ORDERED: OXYTOCIN 30UNITS IN 0.9% NaCl 500ML IV BAG As Ordered ONE (21:13)
[2023-12-30] MEDS ORDERED: KETOROLAC 60MG 2ML VIAL As Ordered ONE (21:13)
[2023-12-30] MEDS ORDERED: MORPHINE PRES-FREE INJ 10 MG/10 ML VIAL As Ordered ONE (21:13)
[2023-12-30] MEDS ORDERED: ACETAMINOPHEN 1000MG 100ML IV BAG As Ordered ONE (21:13)
[2023-12-30] MEDS ORDERED: PHENYLephrine 500MCG 5ML (100MCG/ML) SYRINGE As Ordered ONE (21:15)
[2023-12-30 22:07] LABS: CORD GAS ABE A -0.3; CORD GAS ABE V -1.5; CORD GAS HCO3 A 28.3 MMOL/L; CORD GAS HCO3 V 24.1 MMOL/L; CORD GAS O2 SAT A 21.5 %; CORD GAS O2 SAT V 78.2 %; CORD GAS PCO2 A 63.7 mmHg; CORD GAS PCO2 V 43.9 mmHg; CORD GAS PH A 7.266 UNITS; CORD GAS PH V 7.358 UNITS; CORD GAS PO2 A 12.7 mmHg; CORD GAS PO2 V 31.6 mmHg; CORD GAS SBC A 22.3 MMOL/L; CORD GAS SBC V 22.7 MMOL/L; CORD GAS TCO2 A 30.3 MMOL/L; CORD GAS TCO2 V 25.5 MMOL/L
[2023-12-30] MEDS ORDERED: METOCLOPRAMIDE INJ 10MG/2ML VIAL IV PRN (22:40)
[2023-12-30] MEDS ORDERED: RHOGAM 300MCG (1500IU) INJ IM SCH (22:40)
[2023-12-30] MEDS ORDERED: DOCUSATE SODIUM 100MG CAPSULE PO PRN (22:40)
[2023-12-30] MEDS ORDERED: ACETAMINOPHEN 500 MG TAB PO SCH (22:40)
[2023-12-30] MEDS ORDERED: GLUCOSE 4GM CHEW TABLET PO PRN ×2 (22:45→23:40)
[2023-12-30] MEDS ORDERED: GLUCAGON INJ 1MG VIAL SC PRN ×2 (22:45→23:40)
[2023-12-30] MEDS ORDERED: DEXTROSE 50% 50ML SYRINGE IV PRN ×2 (22:45→23:40)
[2023-12-30] MEDS: OXYTOCIN DRIP 30 UNITS in IV 1 EA IV SCH (23:12)
[2023-12-30] MEDS ORDERED: ONDANSETRON 4MG 2ML VIAL IV PRN (23:40)
[2023-12-30] MEDS ORDERED: fentaNYL 100 MCG/2 ML INJECTION IV PRN (23:40)
[2023-12-30] MEDS ORDERED: **NOTE PATIENT COMMENT** MISC XX SCH (23:40)
[2023-12-30] MEDS: SLF 3 ML SYR IV SCH (23:40)
[2023-12-30] MEDS ORDERED: diphenhydrAMINE 50MG/ML VIAL IV PRN ×2 (23:40)
[2023-12-30] MEDS ORDERED: PROMETHAZINE 25MG/ML 1ML VIAL IV PRN (23:40)
[2023-12-30] MEDS ORDERED: INSULIN LISPRO (NovoLOG) PER UNIT SC PRN (23:40)
[2023-12-30] MEDS ORDERED: NALOXONE INJ 0.4MG/1ML VIAL IV PRN ×2 (23:40)
[2023-12-31] VITALS (38 sets, daily range): BP systolic 99–129; BP diastolic 61–81; TEMP 97.2–98.4; O2SAT 95–97
[2023-12-31] MEDS: ACETAMINOPHEN 500 MG TAB PO SCH
[2023-12-31] MEDS: ONDANSETRON 4MG 2ML VIAL IV PRN ×2 (00:01→16:54)
[2023-12-31] MEDS ORDERED: PERCOCET 5MG/325MG TAB As Ordered ONE (00:08)
[2023-12-31] MEDS ORDERED: oxyCODONE 5MG TAB As Ordered ONE (00:11)
[2023-12-31] MEDS: oxyCODONE 5MG TAB PO PRN (00:16)
[2023-12-31] MEDS: PROMETHAZINE 25MG/ML 1ML VIAL IV PRN (00:45)
[2023-12-31] MEDS: LR 1,000 ML IV SCH ×2 (03:03→03:15)
[2023-12-31] MEDS: KETOROLAC 30 MG/ML 1ML VIAL IV SCH (03:03)
[2023-12-31 06:16] LABS: HEMATOCRIT 29.9 % (36.0-47.0); HEMOGLOBIN 10.3 g/dl (12.0-15.5); MEAN CORPUSCULAR HEMOGLOBIN 27.8 pg (27.0-33.0); MEAN CORPUSCULAR HGB CONC 34.4 g/dl (32.0-36.5); MEAN CORPUSCULAR VOLUME 80.8 fl (80.0-96.0); PLATELET COUNT, AUTOMATED 174 10^3/uL (150-450); WHITE BLOOD COUNT 7.7 10^3/uL (4.0-10.0)
[2023-12-31 06:22] LABS: ALBUMIN 1.5 G/DL (3.2-5.2); ALKALINE PHOSPHATASE 109 U/L (46-116); ALT/SGPT 77 U/L (7.0-40); AST/SGOT 77 U/L (<34); BILIRUBIN,TOTAL 0.5 MG/DL (0.3-1.2); BLOOD UREA NITROGEN < 5 MG/DL (9-23); CARBON DIOXIDE LEVEL 25 MMOL/L (20-31); CHLORIDE LEVEL 105 MMOL/L (98-107); CREATININE FOR GFR 0.45 MG/DL (0.55-1.30); GLOMERULAR FILTRATION RATE > 60.0 (>60); GLUCOSE, FASTING 118 MG/DL (60-100); POTASSIUM SERUM 3.3 MMOL/L (3.5-5.1); SODIUM LEVEL 134 MMOL/L (136-145); TOTAL PROTEIN 4.6 G/DL (5.7-8.2)
[2023-12-31] MEDS: INSULIN LISPRO (NovoLOG) PER UNIT SC SCH (07:30)
[2023-12-31] MEDS: ENOXAPARIN 40MG/0.4ML SYRINGE (J1650 PER 10MG) SC SCH (09:04)
[2023-12-31] MEDS: PANTOPRAZOLE 40MG VIAL IV SCH (09:04)
[2023-12-31] MEDS: PRENATAL VITAMINS CHEWABLE TABLET PO SCH (09:04)
[2023-12-31 11:25] LABS: HEMATOCRIT 28.9 % (36.0-47.0); HEMOGLOBIN 10.1 g/dl (12.0-15.5); MEAN CORPUSCULAR HEMOGLOBIN 28.1 pg (27.0-33.0); MEAN CORPUSCULAR HGB CONC 34.9 g/dl (32.0-36.5); MEAN CORPUSCULAR VOLUME 80.3 fl (80.0-96.0); PLATELET COUNT, AUTOMATED 176 10^3/uL (150-450); WHITE BLOOD COUNT 7.9 10^3/uL (4.0-10.0)
[2023-12-31 11:45] LABS: URIC ACID 3.3 MG/DL (3.1-7.8)
[2023-12-31 11:47] LABS: LDH LACTATE DEHYDROGENASE 258 U/L (120-246)
[2023-12-31 12:13] LABS: ALBUMIN 1.5 G/DL (3.2-5.2); ALKALINE PHOSPHATASE 103 U/L (46-116); ALT/SGPT 77 U/L (7.0-40); AST/SGOT 69 U/L (<34); BILIRUBIN,TOTAL 0.6 MG/DL (0.3-1.2); BLOOD UREA NITROGEN < 5 MG/DL (9-23); CALCIUM LEVEL 5.8 MG/DL (8.5-10.1); CARBON DIOXIDE LEVEL 27 MMOL/L (20-31); CHLORIDE LEVEL 103 MMOL/L (98-107); CREATININE FOR GFR 0.43 MG/DL (0.55-1.30); GLOMERULAR FILTRATION RATE > 60.0 (>60); GLUCOSE, FASTING 134 MG/DL (60-100); MAGNESIUM LEVEL 5.9 MG/DL (1.8-2.4); POTASSIUM SERUM 3.3 MMOL/L (3.5-5.1); SODIUM LEVEL 136 MMOL/L (136-145); TOTAL PROTEIN 4.4 G/DL (5.7-8.2)
[2023-12-31] MEDS: LEVEMIR (INSULIN DETEMIR) 1 UNITS/0.01ML SC SCH (20:33)
[2023-12-31] MEDS: LEVEMIR (INSULIN DETEMIR) 1 UNITS/0.01ML SC ONE (21:14)
[2023-12-31] MEDS: IBUPROFEN 600MG TAB PO SCH (23:17)
[2024-01-01] VITALS (7 sets, daily range): BP systolic 105–162; BP diastolic 68–83; O2SAT 96–99
[2024-01-01] MEDS: MEASLES,MUMPS,RUBELLA VACCINE INJ (MMR-II) SC.IMMUN ONE (07:16)
[2024-01-01] MEDS ORDERED: COLA100C5 PO (08:53)
[2024-01-01] MEDS ORDERED: IBUP-1022 PO (08:53)
[2024-01-01] MEDS ORDERED: ACET-683 PO (08:53)
[2024-01-01] MEDS ORDERED: OXYC-517 PO (09:04)
[2024-01-01 09:22] LABS: HEMATOCRIT 33.4 % (36.0-47.0); HEMOGLOBIN 11.4 g/dl (12.0-15.5); MEAN CORPUSCULAR HEMOGLOBIN 27.7 pg (27.0-33.0); MEAN CORPUSCULAR HGB CONC 34.1 g/dl (32.0-36.5); MEAN CORPUSCULAR VOLUME 81.1 fl (80.0-96.0); PLATELET COUNT, AUTOMATED 254 10^3/uL (150-450); RED BLOOD COUNT 4.12 10^6/uL (4.00-5.40); WHITE BLOOD COUNT 9.5 10^3/uL (4.0-10.0)
[2024-01-01 09:25] LABS: URIC ACID 3.6 MG/DL (3.1-7.8)
[2024-01-01 09:26] LABS: LDH LACTATE DEHYDROGENASE 324 U/L (120-246)
[2024-01-01 09:29] LABS: ALBUMIN 1.7 G/DL (3.2-5.2); ALKALINE PHOSPHATASE 127 U/L (46-116); ALT/SGPT 103 U/L (7.0-40); AST/SGOT 77 U/L (<34); BILIRUBIN,TOTAL 0.4 MG/DL (0.3-1.2); BLOOD UREA NITROGEN 8 MG/DL (9-23); CALCIUM LEVEL 6.3 MG/DL (8.5-10.1); CARBON DIOXIDE LEVEL 28 MMOL/L (20-31); CHLORIDE LEVEL 107 MMOL/L (98-107); CREATININE FOR GFR 0.47 MG/DL (0.55-1.30); GLOMERULAR FILTRATION RATE > 60.0 (>60); GLUCOSE, FASTING 69 MG/DL (60-100); POTASSIUM SERUM 3.5 MMOL/L (3.5-5.1); SODIUM LEVEL 140 MMOL/L (136-145); TOTAL PROTEIN 5.1 G/DL (5.7-8.2)
[2024-01-01] MEDS: oxyCODONE 5MG TAB PO PRN (18:38)
[2024-01-01] MEDS: LEVEMIR (INSULIN DETEMIR) 1 UNITS/0.01ML SC ONE (21:27)
[2024-01-02 02:00] VITALS: BP 129/82; O2SAT 97
[2024-01-02 06:00] VITALS: BP 134/75; O2SAT 96
[2024-01-02 08:27] LABS: HEMATOCRIT 29.7 % (36.0-47.0); MEAN CORPUSCULAR HEMOGLOBIN 27.9 pg (27.0-33.0); MEAN CORPUSCULAR HGB CONC 33.7 g/dl (32.0-36.5); PLATELET COUNT, AUTOMATED 273 10^3/uL (150-450); RED BLOOD COUNT 3.58 10^6/uL (4.00-5.40); WHITE BLOOD COUNT 10.7 10^3/uL (4.0-10.0)
[2024-01-02 10:00] VITALS: BP 143/79; O2SAT 98
[2024-01-02] MEDS: SIMETHICONE 80MG CHEW TAB PO PRN (11:58)
[2024-01-02] MEDS: OMEPRAZOLE 20MG CAP PO SCH (11:59)
[2024-01-02 14:00] VITALS: BP 134/74; O2SAT 95
[2024-01-02 18:00] VITALS: BP 130/75; O2SAT 98
[2024-01-02 22:00] VITALS: BP 139/74; O2SAT 98
[2024-01-03 02:00] VITALS: BP 141/75; O2SAT 100
[2024-01-03 06:00] VITALS: BP 114/68; O2SAT 100
[2024-01-03] MEDS: MAGIC MOUTHWASH SUSPENSION BTL SS PRN (07:42)
[2024-01-03 10:00] VITALS: BP 123/65; O2SAT 98
== END 2024-01-03 15:08 | disposition home or self-care (01) | DRG 540 ==
LOC: M LDO 08:55 → M ICU 12-28 15:21 → M LDI 12-30 18:25 → M OBS 12-31 22:17
PROVIDERS: ADMIT Advanced Practice Midwife; ATTEND Obstetrics & Gynecology
PROC: 10D00Z1 Extraction of Products of Conception, Low, Open Approach (ICD-10-PCS; principal; 2023-12-30 21:00)
DX: O14.14 Severe pre-eclampsia complicating childbirth (principal); U07.1 COVID-19; E10.10 Type 1 diabetes mellitus with ketoacidosis without coma; O24.02 Pre-existing type 1 diabetes mellitus, in childbirth; J05.10 Acute epiglottitis without obstruction; Z37.0 Single live birth; Z3A.33 33 weeks gestation of pregnancy; O34.211 Maternal care for low transverse scar from previous cesarean delivery; Z79.4 Long term (current) use of insulin; O98.52 Other viral diseases complicating childbirth; Z79.899 Other long term (current) drug therapy; O99.53 Diseases of the respiratory system complicating the puerperium

== ENCOUNTER → 2024-02-23 | Outpatient (REF) | payer OTHER ==
[~2024-02-23] MED LIST changes: +ACET-683 PO; +ASPI-226 PO; +COLA100C5 PO; +IBUP-1022 PO; +MAGN200T PO; +METO10TA3 PO; +OXYC-517 PO; +PEPC1TAB5 PO; +PYRI25TA2 PO; +TRAN1DIS4 TOP
[2024-02-23 15:13] LABS: APPEARANCE, URINE HAZY (CLEAR); BACTERIA, URINE AUTO NEGATIVE (NEGATIVE); BILIRUBIN, URINE AUTO NEGATIVE (NEGATIVE); BLOOD, URINE BLOOD NEGATIVE (NEGATIVE); COLOR, URINE YELLOW (YELLOW); GLUCOSE, URINE (UA) AUTO NEGATIVE (NEGATIVE); KETONE, URINE AUTO NEGATIVE (NEGATIVE); LEUKOCYTE ESTERASE, URINE AUTO NEGATIVE (NEGATIVE); MUCUS, URINE SMALL (NEGATIVE); NITRITE, URINE AUTO NEGATIVE (NEGATIVE); PROTEIN, URINE AUTO NEGATIVE (NEGATIVE); RBC, URINE AUTO 0 /HPF (0-3); SPECIFIC GRAVITY URINE AUTO 1.018 (1.002-1.035); SQUAMOUS EPITHELIAL CELL UR AU 3 /HPF (0-6); UROBILINOGEN, URINE AUTO 0.2 mg/dL (0.0-2.0); WBC, URINE AUTO 0 /HPF (0-3)
== END ==
LOC: M PLALAB 12:12
PROVIDERS: ATTEND Obstetrics & Gynecology
DX: R30.0 Dysuria (principal)

== ENCOUNTER 2024-03-08 13:42 | Emergency (ER) | payer OTHER ==
[~2024-03-08] VITALS: Ht 160 cm; Wt 80.4 kg
[~2024-03-08 13:42] MED LIST changes: +ONDA-282 PO; -ONDA4TAB6 PO
[2024-03-08] MEDS ORDERED: MAGN400T35 (13:56)
[2024-03-08] MEDS ORDERED: VALA500T5 (13:56)
[2024-03-08 14:21] LABS: HEMATOCRIT 38.2 % (36.0-47.0); HEMOGLOBIN 12.6 g/dl (12.0-15.5); MEAN CORPUSCULAR HEMOGLOBIN 27.2 pg (27.0-33.0); MEAN CORPUSCULAR VOLUME 82.5 fl (80.0-96.0); PLATELET COUNT, AUTOMATED 362 10^3/uL (150-450); RED BLOOD COUNT 4.63 10^6/uL (4.00-5.40)
[2024-03-08 14:47] LABS: ETHYL ALCOHOL (ETHANOL) 0.004 % (0.000-0.010)
[2024-03-08 14:48] LABS: SALICYLATE LEVEL < 3.0 MG/DL (<30)
[2024-03-08 14:52] LABS: ALBUMIN 3.6 G/DL (3.2-5.2); ALKALINE PHOSPHATASE 102 U/L (46-116); ALT/SGPT 26 U/L (7.0-40); AST/SGOT 16 U/L (<34); BILIRUBIN,DIRECT < 0.1 MG/DL (<0.4); BILIRUBIN,TOTAL 0.3 MG/DL (0.3-1.2); BLOOD UREA NITROGEN 20 MG/DL (9-23); CALCIUM LEVEL 9.5 MG/DL (8.5-10.1); CARBON DIOXIDE LEVEL 26 MMOL/L (20-31); CHLORIDE LEVEL 106 MMOL/L (98-107); CREATININE FOR GFR 0.62 MG/DL (0.55-1.30); GLOMERULAR FILTRATION RATE > 60.0 (>60); GLUCOSE, FASTING 201 MG/DL (60-100); POTASSIUM SERUM 4.5 MMOL/L (3.5-5.1); SODIUM LEVEL 139 MMOL/L (136-145)
[2024-03-08 15:00] LABS: AMPHETAMINES LEVEL URINE NEGATIVE (NEGATIVE); BARBITURATES URINE NEGATIVE (NEGATIVE); BENZODIAZEPINES URINE NEGATIVE (NEGATIVE); COCAINE METABOLITE URINE NEGATIVE (NEGATIVE); METHADONE URINE NEGATIVE (NEGATIVE); OPIATES URINE NEGATIVE (NEGATIVE); PHENCYCLIDINE URINE NEGATIVE (NEGATIVE)
[2024-03-08 15:08] LABS: CANNABINOIDS URINE POSITIVE (NEGATIVE)
[2024-03-08 17:57] VITALS: BP 124/71; TEMP 97.1; O2SAT 98
== END 2024-03-08 18:22 | disposition home or self-care (01) ==
LOC: M ED 13:42
DX: F53.0 Postpartum depression (principal); E10.9 Type 1 diabetes mellitus without complications; F31.9 Bipolar disorder, unspecified; F60.3 Borderline personality disorder; K90.0 Celiac disease; Z79.4 Long term (current) use of insulin

== ENCOUNTER 2024-03-23 15:13 | Emergency (ER) | payer OTHER ==
[~2024-03-23] VITALS: Ht 160 cm; Wt 81.2 kg
[2024-03-23 15:13] VITALS: BP 127/82; TEMP 97.8; O2SAT 97
[~2024-03-23 15:13] MED LIST changes: +MAGN400T35; +VALA500T5
[2024-03-23] MEDS ORDERED: IBUP200C25 PO (15:41)
[2024-03-23 16:13] LABS: BASO % 0.6 % (0.0-1.0); EOS # 0.2 10^3/uL (0.0-0.5); EOS % 2.2 % (0.0-3.0); HEMATOCRIT 35.4 % (36.0-47.0); HEMOGLOBIN 11.5 g/dl (12.0-15.5); LYMPH % 27.5 % (24.0-44.0); MEAN CORPUSCULAR HEMOGLOBIN 26.9 pg (27.0-33.0); MEAN CORPUSCULAR HGB CONC 32.5 g/dl (32.0-36.5); MEAN CORPUSCULAR VOLUME 82.9 fl (80.0-96.0); MONO # 0.5 10^3/uL (0.0-0.8); MONO % 7.4 % (2.0-8.0); NEUTROPHILS # 4.5 10^3/uL (1.5-8.5); NEUTROPHILS % 62.2 % (36.0-66.0); PLATELET COUNT, AUTOMATED 336 10^3/uL (150-450); RED BLOOD COUNT 4.27 10^6/uL (4.00-5.40); WHITE BLOOD COUNT 7.2 10^3/uL (4.0-10.0)
[2024-03-23 16:47] LABS: LIPASE 21 U/L (12-53)
[2024-03-23 16:49] LABS: ALBUMIN 3.6 G/DL (3.2-5.2); ALKALINE PHOSPHATASE 99 U/L (46-116); ALT/SGPT 29 U/L (7.0-40); AST/SGOT 17 U/L (<34); BILIRUBIN,DIRECT < 0.1 MG/DL (<0.4); BILIRUBIN,TOTAL 0.3 MG/DL (0.3-1.2); BLOOD UREA NITROGEN 13 MG/DL (9-23); CALCIUM LEVEL 9.2 MG/DL (8.5-10.1); CARBON DIOXIDE LEVEL 26 MMOL/L (20-31); CHLORIDE LEVEL 106 MMOL/L (98-107); CREATININE FOR GFR 0.66 MG/DL (0.55-1.30); GLOMERULAR FILTRATION RATE > 60.0 (>60); GLUCOSE, FASTING 109 MG/DL (60-100); POTASSIUM SERUM 4.3 MMOL/L (3.5-5.1); SODIUM LEVEL 137 MMOL/L (136-145); TOTAL PROTEIN 6.7 G/DL (5.7-8.2)
[2024-03-23 16:51] LABS: HCG, SERUM QUALITATIVE NEGATIVE (NEGATIVE)
[2024-03-23 17:03] LABS: VENOUS BASE EXCESS 0.5 (-2.0-2.0); VENOUS HCO3 26.8 MMOL/L (23.0-27.0); VENOUS O2 SATURATION 59.9 % (60.0-80.0); VENOUS PARTIAL PRESSURE CO2 49.8 mmHg (38.0-50.0); VENOUS PARTIAL PRESSURE O2 33.3 mmHg (30.0-50.0); VENOUS PH 7.348 UNITS (7.330-7.430); VENOUS STANDARD HCO3 24.1 MMOL/L; VENOUS TOTAL CO2 28.3 MMOL/L (24.0-28.0)
[2024-03-23 17:37] LABS: LIPASE 22 U/L (12-53)
[2024-03-23 17:39] LABS: ALBUMIN 3.5 G/DL (3.2-5.2); ALKALINE PHOSPHATASE 102 U/L (46-116); ALT/SGPT 28 U/L (7.0-40); AST/SGOT 16 U/L (<34); BILIRUBIN,DIRECT < 0.1 MG/DL (<0.4); BILIRUBIN,TOTAL 0.3 MG/DL (0.3-1.2)
[2024-03-23 18:14] LABS: OSMOLALITY SERUM 294 MOSM/KG (275-295)
[2024-03-23] MEDS: NS 1,000 ML IV ONE (18:23)
[2024-03-23] MEDS: ONDANSETRON 4MG 2ML VIAL IV ONE (18:23)
[2024-03-23] MEDS ORDERED: ONDA-282 PO (19:34)
[2024-03-23] MEDS ORDERED: PEPC1TAB5 PO (19:34)
== END 2024-03-23 19:43 | disposition home or self-care (01) ==
LOC: M ED 15:13
DX: K29.70 Gastritis, unspecified, without bleeding (principal); E10.9 Type 1 diabetes mellitus without complications; K90.0 Celiac disease; B00.9 Herpesviral infection, unspecified; F12.10 Cannabis abuse, uncomplicated; Z91.02 Food additives allergy status; Z79.1 Long term (current) use of non-steroidal anti-inflammatories (NSAID); Z79.83 Long term (current) use of bisphosphonates; Z79.899 Other long term (current) drug therapy
CPT/HCPCS: 80048; 80076; 81001; 82010; 82803; 83036; 83690; 83930; 84703; 85025; 93005; 96374; 99284; J2405

== ENCOUNTER 2024-05-08 07:45 | Inpatient (IN) | payer OTHER ==
[~2024-05-08] VITALS: Ht 160 cm; Wt 81.8 kg
[~2024-05-08 07:45] MED LIST changes: +IBUP200C25 PO; -MAGN400T35; +MAGN400T35 PO; +OLAN1TAB16 PO; -VALA500T5; +VALA500T5 PO
[2024-05-08] MEDS: PROMETHAZINE 25MG/ML 1ML VIAL IV ONE ×2 (08:22→14:50)
[2024-05-08] MEDS: NS 1,000 ML IV ONE ×2 (08:22→10:05)
[2024-05-08 09:02] LABS: VENOUS BASE EXCESS 2.5 (-2.0-2.0); VENOUS HCO3 24.2 MMOL/L (23.0-27.0); VENOUS O2 SATURATION 71.6 % (60.0-80.0); VENOUS PARTIAL PRESSURE CO2 29.4 mmHg (38.0-50.0); VENOUS PARTIAL PRESSURE O2 33.1 mmHg (30.0-50.0); VENOUS PH 7.533 UNITS (7.330-7.430); VENOUS TOTAL CO2 25.1 MMOL/L (24.0-28.0)
[2024-05-08 09:09] LABS: BASO % 0.3 % (0.0-1.0); HEMATOCRIT 38.3 % (36.0-47.0); HEMOGLOBIN 12.8 g/dl (12.0-15.5); LYMPH # 0.6 10^3/uL (1.5-5.0); LYMPH % 3.9 % (24.0-44.0); MEAN CORPUSCULAR HEMOGLOBIN 25.7 pg (27.0-33.0); MEAN CORPUSCULAR HGB CONC 33.4 g/dl (32.0-36.5); MEAN CORPUSCULAR VOLUME 76.8 fl (80.0-96.0); MONO # 0.2 10^3/uL (0.0-0.8); MONO % 1.2 % (2.0-8.0); NEUTROPHILS # 14.4 10^3/uL (1.5-8.5); NEUTROPHILS % 94.3 % (36.0-66.0); PLATELET COUNT, AUTOMATED 383 10^3/uL (150-450); RED BLOOD COUNT 4.99 10^6/uL (4.00-5.40); WHITE BLOOD COUNT 15.3 10^3/uL (4.0-10.0)
[2024-05-08 09:30] LABS: LIPASE 19 U/L (12-53)
[2024-05-08 09:32] LABS: ALBUMIN 4.4 G/DL (3.2-5.2); ALKALINE PHOSPHATASE 117 U/L (46-116); ALT/SGPT 24 U/L (7.0-40); AST/SGOT 30 U/L (<34); BILIRUBIN,DIRECT 0.1 MG/DL (<0.4); BILIRUBIN,TOTAL 0.5 MG/DL (0.3-1.2); BLOOD UREA NITROGEN 14 MG/DL (9-23); CALCIUM LEVEL 9.6 MG/DL (8.5-10.1); CARBON DIOXIDE LEVEL 23 MMOL/L (20-31); CHLORIDE LEVEL 104 MMOL/L (98-107); CREATININE FOR GFR 0.62 MG/DL (0.55-1.30); GLOMERULAR FILTRATION RATE > 60.0 (>60); GLUCOSE, FASTING 177 MG/DL (60-100); POTASSIUM SERUM 4.2 MMOL/L (3.5-5.1); SODIUM LEVEL 138 MMOL/L (136-145)
[2024-05-08 09:42] LABS: HCG, SERUM QUALITATIVE NEGATIVE (NEGATIVE)
[2024-05-08] MEDS: ONDANSETRON 4MG 2ML VIAL IV ONE ×2 (10:05→22:31)
[2024-05-08] MEDS: HALOPERIDOL LACTATE 5MG/ML VIAL IV STA (10:05)
[2024-05-08] MEDS: ACETAMINOPHEN 500 MG TAB PO ONE (11:30)
[2024-05-08] MEDS ORDERED: ISOVUE-370 76% 100ML VIAL As Ordered ONE (11:38)
[2024-05-08] MEDS: IBUPROFEN 600MG TAB PO ONE (11:42)
[2024-05-08] MEDS ORDERED: GLUCOSE 4 GM CHEW PO PRN (14:10)
[2024-05-08] MEDS ORDERED: DEXTROSE 50% 50ML SYRINGE IV PRN (14:10)
[2024-05-08] MEDS ORDERED: GLUCAGON INJ 1MG VIAL SC PRN (14:10)
[2024-05-08] MEDS ORDERED: ONDA-282 PO (14:30)
[2024-05-08] MEDS ORDERED: FAMO1TAB11 PO (14:30)
[2024-05-08] MEDS ORDERED: OLAN2.5T25 PO (14:31)
[2024-05-08] MEDS ORDERED: HOME MED LIST COMPLETE! XX SCH (14:35)
[2024-05-08 15:22] LABS: PROCALCITONIN <0.04 ng/ml
[2024-05-08] MEDS: LR 1,000 ML IV SCH (15:29)
[2024-05-08] MEDS: SCOPOLAMINE 1MG TRANSDERMAL PATCH TOP SCH (15:29)
[2024-05-08] MEDS: PINK BISMUTH SUSP 524MG/30ML ORAL SYRINGE PO SCH (17:00)
[2024-05-08] MEDS: METOCLOPRAMIDE INJ 10MG/2ML VIAL IV SCH (17:30)
[2024-05-08] MEDS: INSULIN LISPRO (NovoLOG) PER UNIT SC SCH ×2 (18:36→22:31)
[2024-05-08] MEDS: HALOPERIDOL LACTATE 5MG/ML VIAL IV ONE (19:36)
[2024-05-08] MEDS: OLANZapine 2.5MG TABLET PO SCH (21:00)
[2024-05-08] MEDS: OLANZapine 5 MG TAB PO SCH (21:00)
[2024-05-08] MEDS: MAGNESIUM OXIDE 400MG TAB (MAG-OX) PO SCH (21:00)
[2024-05-08] MEDS: PANTOPRAZOLE 40MG VIAL IV SCH (21:55)
[2024-05-08] MEDS ORDERED: INSULIN LISPRO (NovoLOG) PER UNIT SC ONE (22:15)
[2024-05-08] MEDS: INSULIN LISPRO (NovoLOG) PER UNIT SC ONE (22:37)
[2024-05-09] VITALS (8 sets, daily range): BP systolic 151–180; BP diastolic 96–106; TEMP 98.1–100.8; O2SAT 96–100
[2024-05-09] MEDS: INSULIN LISPRO (NovoLOG) PER UNIT SC ONE (03:32)
[2024-05-09] MEDS: ONDANSETRON 4MG 2ML VIAL IV ONE (03:33)
[2024-05-09 06:58] LABS: HEMATOCRIT 35.2 % (36.0-47.0); HEMOGLOBIN 11.5 g/dl (12.0-15.5); MEAN CORPUSCULAR HEMOGLOBIN 25.7 pg (27.0-33.0); MEAN CORPUSCULAR HGB CONC 32.7 g/dl (32.0-36.5); MEAN CORPUSCULAR VOLUME 78.7 fl (80.0-96.0); PLATELET COUNT, AUTOMATED 326 10^3/uL (150-450); RED BLOOD COUNT 4.47 10^6/uL (4.00-5.40); WHITE BLOOD COUNT 19.3 10^3/uL (4.0-10.0)
[2024-05-09 07:19] LABS: BLOOD UREA NITROGEN 14 MG/DL (9-23); CALCIUM LEVEL 9.2 MG/DL (8.5-10.1); CARBON DIOXIDE LEVEL 19 MMOL/L (20-31); CHLORIDE LEVEL 111 MMOL/L (98-107); CREATININE FOR GFR 0.68 MG/DL (0.55-1.30); GLOMERULAR FILTRATION RATE > 60.0 (>60); GLUCOSE, FASTING 240 MG/DL (60-100); MAGNESIUM LEVEL 2.1 MG/DL (1.8-2.4); POTASSIUM SERUM 3.9 MMOL/L (3.5-5.1); SODIUM LEVEL 142 MMOL/L (136-145)
[2024-05-09] MEDS: ONDANSETRON 4MG 2ML VIAL IV STA (08:34)
[2024-05-09] MEDS: INSULIN LISPRO (NovoLOG) PER UNIT SC SCH ×2 (08:38→13:24)
[2024-05-09 09:30] LABS: VENOUS BASE EXCESS -8.8 (-2.0-2.0); VENOUS HCO3 15.8 MMOL/L (23.0-27.0); VENOUS O2 SATURATION 71.3 % (60.0-80.0); VENOUS PARTIAL PRESSURE CO2 30.8 mmHg (38.0-50.0); VENOUS PARTIAL PRESSURE O2 40.1 mmHg (30.0-50.0); VENOUS PH 7.329 UNITS (7.330-7.430); VENOUS STANDARD HCO3 16.9 MMOL/L; VENOUS TOTAL CO2 16.8 MMOL/L (24.0-28.0)
[2024-05-09] MEDS: PROCHLORPERAZINE 10MG 2ML VIAL IV PRN (09:35)
[2024-05-09] MEDS ORDERED: MORPHINE 4 MG/ML 1ML VIAL IV PRN (09:40)
[2024-05-09 10:03] LABS: BLOOD UREA NITROGEN 15 MG/DL (9-23); CALCIUM LEVEL 9.3 MG/DL (8.5-10.1); CARBON DIOXIDE LEVEL 15 MMOL/L (20-31); CHLORIDE LEVEL 111 MMOL/L (98-107); CREATININE FOR GFR 0.63 MG/DL (0.55-1.30); GLOMERULAR FILTRATION RATE > 60.0 (>60); GLUCOSE, FASTING 290 MG/DL (60-100); PHOSPHORUS LEVEL 3.4 MG/DL (2.5-4.9); SODIUM LEVEL 141 MMOL/L (136-145)
[2024-05-09 10:18] LABS: LIPASE 17 U/L (12-53)
[2024-05-09 10:49] LABS: ACETONE/KETONE 4.21 MMOL/L (0.02-0.27)
[2024-05-09] MEDS: LEVEMIR (INSULIN DETEMIR) 1 UNITS/0.01ML SC STA (11:15)
[2024-05-09] MEDS: MORPHINE 2 MG/ML 1ML VIAL IV PRN (12:25)
[2024-05-09] MEDS: ONDANSETRON 4MG 2ML VIAL IV SCH (13:24)
[2024-05-09 13:31] LABS: VENOUS BASE EXCESS -9.2 (-2.0-2.0); VENOUS HCO3 14.6 MMOL/L (23.0-27.0); VENOUS O2 SATURATION 99.1 % (60.0-80.0); VENOUS PARTIAL PRESSURE CO2 26.4 mmHg (38.0-50.0); VENOUS PARTIAL PRESSURE O2 186.8 mmHg (30.0-50.0); VENOUS PH 7.361 UNITS (7.330-7.430); VENOUS STANDARD HCO3 17.2 MMOL/L; VENOUS TOTAL CO2 15.4 MMOL/L (24.0-28.0)
[2024-05-09 14:27] LABS: BLOOD UREA NITROGEN 15 MG/DL (9-23); CARBON DIOXIDE LEVEL 17 MMOL/L (20-31); CHLORIDE LEVEL 112 MMOL/L (98-107); GLOMERULAR FILTRATION RATE > 60.0 (>60); GLUCOSE, FASTING 251 MG/DL (60-100); PHOSPHORUS LEVEL 2.7 MG/DL (2.5-4.9); POTASSIUM SERUM 4.1 MMOL/L (3.5-5.1); SODIUM LEVEL 142 MMOL/L (136-145)
[2024-05-09] MEDS ORDERED: fentaNYL 100 MCG/2 ML INJECTION As Ordered ONE (15:13)
[2024-05-09] MEDS ORDERED: propofoL 200 MG/20 ML VIAL As Ordered ONE (15:14)
[2024-05-09] MEDS ORDERED: LIDOCAINE 2% 100MG/5ML SDV (FOR ANES.) As Ordered ONE (15:14)
[2024-05-09] MEDS ORDERED: LIDOCAINE 1% MDV 20ML VIAL As Ordered ONE (17:01)
[2024-05-09] MEDS: SODIUM CHLORIDE 0.9% INJ 10 ML SYR IV SCH (17:50)
[2024-05-09] MEDS ORDERED: SODIUM CHLORIDE 0.9% INJ 10 ML SYR IV PRN (17:50)
[2024-05-09 18:32] LABS: VENOUS BASE EXCESS -8.3 (-2.0-2.0); VENOUS HCO3 15.9 MMOL/L (23.0-27.0); VENOUS O2 SATURATION 95.5 % (60.0-80.0); VENOUS PH 7.357 UNITS (7.330-7.430); VENOUS SITE NOT GIVEN; VENOUS STANDARD HCO3 17.7 MMOL/L; VENOUS TOTAL CO2 16.8 MMOL/L (24.0-28.0)
[2024-05-09 18:38] LABS: BLOOD UREA NITROGEN 15 MG/DL (9-23); CALCIUM LEVEL 8.9 MG/DL (8.5-10.1); CARBON DIOXIDE LEVEL 18 MMOL/L (20-31); CHLORIDE LEVEL 111 MMOL/L (98-107); CREATININE FOR GFR 0.61 MG/DL (0.55-1.30); GLOMERULAR FILTRATION RATE > 60.0 (>60); GLUCOSE, FASTING 239 MG/DL (60-100); PHOSPHORUS LEVEL 2.9 MG/DL (2.5-4.9); POTASSIUM SERUM 3.8 MMOL/L (3.5-5.1); SODIUM LEVEL 141 MMOL/L (136-145)
[2024-05-09] MEDS: ACETAMINOPHEN TAB 650MG DOSE (2X325MG) PO PRN (18:50)
[2024-05-09 20:03] LABS: PROCALCITONIN 0.06 ng/ml
[2024-05-09 20:04] LABS: ALBUMIN 3.6 G/DL (3.2-5.2); ALKALINE PHOSPHATASE 106 U/L (46-116); ALT/SGPT 17 U/L (7.0-40); AST/SGOT 12 U/L (<34); BILIRUBIN,TOTAL 0.4 MG/DL (0.3-1.2); BLOOD UREA NITROGEN 13 MG/DL (9-23); CALCIUM LEVEL 9.1 MG/DL (8.5-10.1); CARBON DIOXIDE LEVEL 18 MMOL/L (20-31); CHLORIDE LEVEL 114 MMOL/L (98-107); CREATININE FOR GFR 0.61 MG/DL (0.55-1.30); GLOMERULAR FILTRATION RATE > 60.0 (>60); GLUCOSE, FASTING 211 MG/DL (60-100); MAGNESIUM LEVEL 1.8 MG/DL (1.8-2.4); POTASSIUM SERUM 3.8 MMOL/L (3.5-5.1); SODIUM LEVEL 143 MMOL/L (136-145); TOTAL PROTEIN 7.1 G/DL (5.7-8.2)
[2024-05-09] MEDS: LEVEMIR (INSULIN DETEMIR) 1 UNITS/0.01ML SC ONE (20:26)
[2024-05-09 23:55] LABS: VENOUS BASE EXCESS -3.8 (-2.0-2.0); VENOUS HCO3 18.9 MMOL/L (23.0-27.0); VENOUS O2 SATURATION 98.2 % (60.0-80.0); VENOUS PARTIAL PRESSURE CO2 27.8 mmHg (38.0-50.0); VENOUS PARTIAL PRESSURE O2 128.6 mmHg (30.0-50.0); VENOUS PH 7.451 UNITS (7.330-7.430); VENOUS STANDARD HCO3 21.3 MMOL/L; VENOUS TOTAL CO2 19.8 MMOL/L (24.0-28.0)
[2024-05-10 00:18] LABS: BLOOD UREA NITROGEN 12 MG/DL (9-23); CALCIUM LEVEL 8.5 MG/DL (8.5-10.1); CARBON DIOXIDE LEVEL 17 MMOL/L (20-31); CHLORIDE LEVEL 115 MMOL/L (98-107); CREATININE FOR GFR 0.53 MG/DL (0.55-1.30); GLOMERULAR FILTRATION RATE > 60.0 (>60); GLUCOSE, FASTING 175 MG/DL (60-100); POTASSIUM SERUM 3.9 MMOL/L (3.5-5.1); SODIUM LEVEL 143 MMOL/L (136-145)
[2024-05-10 04:52] VITALS: BP 172/104; TEMP 97.5; O2SAT 100
[2024-05-10 07:51] LABS: BASO % 0.3 % (0.0-1.0); HEMATOCRIT 33.9 % (36.0-47.0); HEMOGLOBIN 11.1 g/dl (12.0-15.5); LYMPH # 1.1 10^3/uL (1.5-5.0); MEAN CORPUSCULAR HEMOGLOBIN 25.5 pg (27.0-33.0); MEAN CORPUSCULAR HGB CONC 32.7 g/dl (32.0-36.5); MEAN CORPUSCULAR VOLUME 77.9 fl (80.0-96.0); MONO # 0.6 10^3/uL (0.0-0.8); MONO % 3.7 % (2.0-8.0); NEUTROPHILS # 13.4 10^3/uL (1.5-8.5); NEUTROPHILS % 87.9 % (36.0-66.0); PLATELET COUNT, AUTOMATED 291 10^3/uL (150-450); RED BLOOD COUNT 4.35 10^6/uL (4.00-5.40); WHITE BLOOD COUNT 15.2 10^3/uL (4.0-10.0)
[2024-05-10] MEDS: INSULIN LISPRO (NovoLOG) PER UNIT SC SCH ×2 (07:54→18:46)
[2024-05-10 08:21] LABS: BLOOD UREA NITROGEN 13 MG/DL (9-23); CALCIUM LEVEL 8.6 MG/DL (8.5-10.1); CARBON DIOXIDE LEVEL 20 MMOL/L (20-31); CHLORIDE LEVEL 109 MMOL/L (98-107); CREATININE FOR GFR 0.53 MG/DL (0.55-1.30); GLOMERULAR FILTRATION RATE > 60.0 (>60); GLUCOSE, FASTING 249 MG/DL (60-100); SODIUM LEVEL 141 MMOL/L (136-145)
[2024-05-10 08:33] LABS: PROCALCITONIN 0.05 ng/ml
[2024-05-10] MEDS ORDERED: MORPHINE 4 MG/ML 1ML VIAL IV PRN (11:40)
[2024-05-10] MEDS ORDERED: PERCOCET 5MG/325MG TAB PO PRN (11:40)
[2024-05-10 12:00] VITALS: BP 170/105; TEMP 98.1; O2SAT 100
[2024-05-10] MEDS: SUCRALFATE 1 GM TAB PO SCH (12:38)
[2024-05-10 14:36] LABS: MAGNESIUM LEVEL 1.7 MG/DL (1.8-2.4)
[2024-05-10] MEDS: METOPROLOL TART 12.5 MG PER 1/2 TAB PO SCH (14:37)
[2024-05-10] MEDS: MAG SULF 1GM/100ML (MAG RUN) 1 GM in IV 1 EA IV SCH (15:58)
[2024-05-10] MEDS ORDERED: GLUCOSE 4 GM CHEW PO PRN (17:15)
[2024-05-10] MEDS ORDERED: DEXTROSE 50% 50ML SYRINGE IV PRN (17:15)
[2024-05-10] MEDS ORDERED: GLUCAGON INJ 1MG VIAL SC PRN (17:15)
[2024-05-10] MEDS: LEVEMIR (INSULIN DETEMIR) 1 UNITS/0.01ML SC STA (17:18)
[2024-05-10] MEDS: LR 1,000 ML IV SCH (17:43)
[2024-05-10] MEDS: PROMETHAZINE 25MG/ML 1ML VIAL IV PRN (18:08)
[2024-05-10 20:22] VITALS: BP 170/112; TEMP 97; O2SAT 99
[2024-05-10] MEDS: LEVEMIR (INSULIN DETEMIR) 1 UNITS/0.01ML SC SCH (20:41)
[2024-05-10 20:55] VITALS: BP 175/102
[2024-05-10] MEDS ORDERED: INSULIN LISPRO (NovoLOG) PER UNIT SC SCH (21:00)
[2024-05-10] MEDS ORDERED: LEVEMIR (INSULIN DETEMIR) 1 UNITS/0.01ML SC SCH (21:00)
[2024-05-10 21:22] LABS: BLOOD UREA NITROGEN 10 MG/DL (9-23); CALCIUM LEVEL 8.8 MG/DL (8.5-10.1); CARBON DIOXIDE LEVEL 22 MMOL/L (20-31); CHLORIDE LEVEL 108 MMOL/L (98-107); CREATININE FOR GFR 0.49 MG/DL (0.55-1.30); GLOMERULAR FILTRATION RATE > 60.0 (>60); GLUCOSE, FASTING 193 MG/DL (60-100); POTASSIUM SERUM 3.4 MMOL/L (3.5-5.1); SODIUM LEVEL 141 MMOL/L (136-145)
[2024-05-10] MEDS: METOPROLOL TART 12.5 MG PER 1/2 TAB PO ONE (21:30)
[2024-05-10] MEDS: OLANZapine 5 MG TAB PO ONE (21:30)
[2024-05-10] MEDS: MAGNESIUM OXIDE 400MG TAB (MAG-OX) PO ONE (21:30)
[2024-05-10] MEDS: POTASSIUM CHLORIDE 10MEQ SR TABLET PO ONE (23:47)
[2024-05-11] VITALS (9 sets, daily range): BP systolic 152–183; BP diastolic 90–125; TEMP 97.5–98.1; O2SAT 95–99
[2024-05-11 07:06] LABS: BASO % 0.4 % (0.0-1.0); HEMATOCRIT 36.8 % (36.0-47.0); HEMOGLOBIN 12.2 g/dl (12.0-15.5); LYMPH # 1.6 10^3/uL (1.5-5.0); LYMPH % 14.4 % (24.0-44.0); MEAN CORPUSCULAR HEMOGLOBIN 25.8 pg (27.0-33.0); MEAN CORPUSCULAR HGB CONC 33.2 g/dl (32.0-36.5); MONO # 0.7 10^3/uL (0.0-0.8); MONO % 6.8 % (2.0-8.0); NEUTROPHILS # 8.5 10^3/uL (1.5-8.5); NEUTROPHILS % 77.9 % (36.0-66.0); PLATELET COUNT, AUTOMATED 315 10^3/uL (150-450); RED BLOOD COUNT 4.72 10^6/uL (4.00-5.40); WHITE BLOOD COUNT 10.9 10^3/uL (4.0-10.0)
[2024-05-11] MEDS ORDERED: SUCRALFATE 1 GM TAB PO SCH (07:30)
[2024-05-11 07:38] LABS: BLOOD UREA NITROGEN 11 MG/DL (9-23); CALCIUM LEVEL 8.2 MG/DL (8.5-10.1); CARBON DIOXIDE LEVEL 25 MMOL/L (20-31); CHLORIDE LEVEL 105 MMOL/L (98-107); CREATININE FOR GFR 0.47 MG/DL (0.55-1.30); GLOMERULAR FILTRATION RATE > 60.0 (>60); GLUCOSE, FASTING 188 MG/DL (60-100); MAGNESIUM LEVEL 1.9 MG/DL (1.8-2.4); POTASSIUM SERUM 3.4 MMOL/L (3.5-5.1); SODIUM LEVEL 136 MMOL/L (136-145)
[2024-05-11] MEDS: SUCRALFATE SUSP 1GM/10ML UD PO SCH (08:37)
[2024-05-11] MEDS: METOCLOPRAMIDE INJ 10MG/2ML VIAL IV SCH (08:37)
[2024-05-11] MEDS: METOPROLOL TART 12.5 MG PER 1/2 TAB PO SCH (08:42)
[2024-05-11] MEDS: LORazepam 0.5 MG TAB PO STA (11:54)
[2024-05-11] MEDS: KCL 10MEQ/100ML SWI (KRUN) 10 MEQ in IV 1 EA IV SCH (11:55)
[2024-05-11] MEDS: INSULIN LISPRO (NovoLOG) PER UNIT SC SCH ×2 (11:55→21:00)
[2024-05-11 15:18] LABS: HEMOGLOBIN A1c 6.8 % (4.0-6.0)
[2024-05-11] MEDS: LORazepam 0.5 MG TAB PO SCH (21:10)
[2024-05-11] MEDS: LEVEMIR (INSULIN DETEMIR) 1 UNITS/0.01ML SC SCH (21:11)
[2024-05-12 04:13] VITALS: BP 160/106; TEMP 97.9; O2SAT 99
[2024-05-12 07:33] LABS: BASO % 0.4 % (0.0-1.0); EOS % 0.3 % (0.0-3.0); HEMATOCRIT 36.7 % (36.0-47.0); HEMOGLOBIN 12.4 g/dl (12.0-15.5); LYMPH # 1.8 10^3/uL (1.5-5.0); LYMPH % 18.5 % (24.0-44.0); MEAN CORPUSCULAR HEMOGLOBIN 25.8 pg (27.0-33.0); MEAN CORPUSCULAR HGB CONC 33.8 g/dl (32.0-36.5); MEAN CORPUSCULAR VOLUME 76.5 fl (80.0-96.0); MONO % 7.6 % (2.0-8.0); NEUTROPHILS # 6.9 10^3/uL (1.5-8.5); NEUTROPHILS % 72.7 % (36.0-66.0); PLATELET COUNT, AUTOMATED 309 10^3/uL (150-450); WHITE BLOOD COUNT 9.5 10^3/uL (4.0-10.0)
[2024-05-12 07:34] LABS: MONO # 0.7 10^3/uL (0.0-0.8)
[2024-05-12 07:57] LABS: BLOOD UREA NITROGEN 11 MG/DL (9-23); CALCIUM LEVEL 8.2 MG/DL (8.5-10.1); CARBON DIOXIDE LEVEL 24 MMOL/L (20-31); CHLORIDE LEVEL 104 MMOL/L (98-107); CREATININE FOR GFR 0.47 MG/DL (0.55-1.30); GLOMERULAR FILTRATION RATE > 60.0 (>60); GLUCOSE, FASTING 230 MG/DL (60-100); MAGNESIUM LEVEL 1.9 MG/DL (1.8-2.4); POTASSIUM SERUM 3.9 MMOL/L (3.5-5.1); SODIUM LEVEL 136 MMOL/L (136-145)
[2024-05-12] MEDS ORDERED: **hydrALAZINE HCL** 25 MG TAB PO PRN (11:05)
[2024-05-12] MEDS: METOCLOPRAMIDE INJ 10MG/2ML VIAL IV SCH (12:18)
[2024-05-12 12:20] VITALS: BP 162/106
[2024-05-12 12:28] VITALS: BP 156/100; TEMP 97.9; O2SAT 96
[2024-05-12] MEDS: HALOPERIDOL LACTATE 5MG/ML VIAL IV STA (17:11)
[2024-05-12 20:12] VITALS: BP 158/108
[2024-05-12 20:15] VITALS: TEMP 97.5; O2SAT 98
[2024-05-13 04:16] VITALS: BP 155/108; TEMP 97.5; O2SAT 99
[2024-05-13 06:10] LABS: BASO % 0.4 % (0.0-1.0); EOS # 0.1 10^3/uL (0.0-0.5); EOS % 1.3 % (0.0-3.0); HEMATOCRIT 35.4 % (36.0-47.0); HEMOGLOBIN 12.1 g/dl (12.0-15.5); LYMPH # 2.1 10^3/uL (1.5-5.0); LYMPH % 24.9 % (24.0-44.0); MEAN CORPUSCULAR HEMOGLOBIN 26.3 pg (27.0-33.0); MEAN CORPUSCULAR HGB CONC 34.2 g/dl (32.0-36.5); MONO # 0.6 10^3/uL (0.0-0.8); MONO % 7.5 % (2.0-8.0); NEUTROPHILS # 5.4 10^3/uL (1.5-8.5); NEUTROPHILS % 65.4 % (36.0-66.0); PLATELET COUNT, AUTOMATED 310 10^3/uL (150-450); WHITE BLOOD COUNT 8.3 10^3/uL (4.0-10.0)
[2024-05-13 06:47] LABS: BLOOD UREA NITROGEN 9 MG/DL (9-23); CALCIUM LEVEL 8.2 MG/DL (8.5-10.1); CARBON DIOXIDE LEVEL 28 MMOL/L (20-31); CHLORIDE LEVEL 104 MMOL/L (98-107); CREATININE FOR GFR 0.51 MG/DL (0.55-1.30); GLOMERULAR FILTRATION RATE > 60.0 (>60); GLUCOSE, FASTING 188 MG/DL (60-100); MAGNESIUM LEVEL 1.8 MG/DL (1.8-2.4); POTASSIUM SERUM 3.6 MMOL/L (3.5-5.1); SODIUM LEVEL 137 MMOL/L (136-145)
[2024-05-13 08:11] VITALS: BP 156/109
[2024-05-13 09:46] VITALS: BP 158/104
[2024-05-13] MEDS ORDERED: MAGN400T35 PO (11:03)
[2024-05-13] MEDS ORDERED: LISI40TA4 PO (11:03)
[2024-05-13] MEDS ORDERED: SUCR1TA PO (11:03)
[2024-05-13] MEDS ORDERED: NORV5TAB PO (11:03)
[2024-05-13] MEDS ORDERED: PANT40TA29 PO (11:03)
[2024-05-13] MEDS ORDERED: POTA10CA70 PO (11:03)
[2024-05-13] MEDS ORDERED: PROM25TA12 PO (11:03)
[2024-05-13 12:05] VITALS: BP 176/108; TEMP 99.6; O2SAT 96
== END 2024-05-13 13:35 | disposition home or self-care (01) | DRG 243 ==
LOC: M ED 07:45 → EDBD 07:45 → M ED INP 14:08 → M MS5PR 05-09 09:52
PROVIDERS: ADMIT Student in an Organized Health Care Education/Training Program; ATTEND Internal Medicine
PROC: 0DB38ZX Excision of Lower Esophagus, Via Natural or Artificial Opening Endoscopic, Diagnostic (ICD-10-PCS; principal; 2024-05-09 14:00)
DX: K21.00 Gastro-esophageal reflux disease with esophagitis, without bleeding (principal); K22.6 Gastro-esophageal laceration-hemorrhage syndrome; E87.20 Acidosis, unspecified; K31.84 Gastroparesis; B02.9 Zoster without complications; E83.42 Hypomagnesemia; E10.43 Type 1 diabetes mellitus with diabetic autonomic (poly)neuropathy; D72.829 Elevated white blood cell count, unspecified; K90.0 Celiac disease; I10 Essential (primary) hypertension; F60.3 Borderline personality disorder; F31.9 Bipolar disorder, unspecified; F41.9 Anxiety disorder, unspecified; R50.9 Fever, unspecified; R00.0 Tachycardia, unspecified; E87.6 Hypokalemia; F12.188 Cannabis abuse with other cannabis-induced disorder; R11.2 Nausea with vomiting, unspecified; Z79.899 Other long term (current) drug therapy; Z79.4 Long term (current) use of insulin

== ENCOUNTER → 2024-06-09 | Outpatient (REF) | payer OTHER ==
[~2024-06-09] MED LIST changes: +FAMO1TAB11 PO; +LISI40TA4 PO; +NORV5TAB PO; +OLAN2.5T25 PO; +PANT40TA29 PO; +POTA10CA70 PO; +PROM25TA12 PO; +SUCR1TA PO
== END ==
LOC: M LAB REF 16:26
PROVIDERS: ATTEND Physician Assistant
DX: R05.9 Cough, unspecified (principal)

== ENCOUNTER → 2024-06-30 | Outpatient (REF) | payer OTHER ==
[~2024-06-30] MED LIST changes: -OLAN2.5T25 PO; +OLAN2.5T53 PO
[2024-06-30 18:24] LABS: BASO % 0.3 % (0.0-1.0); EOS % 0.3 % (0.0-3.0); HEMOGLOBIN 13.8 g/dl (12.0-15.5); LYMPH # 1.5 10^3/uL (1.5-5.0); LYMPH % 10.9 % (24.0-44.0); MEAN CORPUSCULAR HEMOGLOBIN 25.7 pg (27.0-33.0); MEAN CORPUSCULAR HGB CONC 32.1 g/dl (32.0-36.5); MEAN CORPUSCULAR VOLUME 79.9 fl (80.0-96.0); MONO # 0.7 10^3/uL (0.0-0.8); MONO % 5.5 % (2.0-8.0); NEUTROPHILS # 11.2 10^3/uL (1.5-8.5); NEUTROPHILS % 82.6 % (36.0-66.0); PLATELET COUNT, AUTOMATED 479 10^3/uL (150-450); RED BLOOD COUNT 5.38 10^6/uL (4.00-5.40); WHITE BLOOD COUNT 13.5 10^3/uL (4.0-10.0)
[2024-06-30 19:13] LABS: ALBUMIN 3.8 G/DL (3.2-5.2); ALKALINE PHOSPHATASE 105 U/L (46-116); ALT/SGPT < 9 U/L (7.0-40); AST/SGOT < 8 U/L (<34); BILIRUBIN,TOTAL 0.5 MG/DL (0.3-1.2); BLOOD UREA NITROGEN 18 MG/DL (9-23); CALCIUM LEVEL 9.6 MG/DL (8.5-10.1); CARBON DIOXIDE LEVEL 21 MMOL/L (20-31); CHLORIDE LEVEL 101 MMOL/L (98-107); CREATININE FOR GFR 0.69 MG/DL (0.55-1.30); GLOMERULAR FILTRATION RATE > 60.0 (>60); GLUCOSE, FASTING 282 MG/DL (60-100); SODIUM LEVEL 134 MMOL/L (136-145); TOTAL PROTEIN 7.2 G/DL (5.7-8.2)
== END ==
LOC: M SFHCADAM 14:39
PROVIDERS: ATTEND Physician Assistant Medical
DX: F12.10 Cannabis abuse, uncomplicated (principal); R11.2 Nausea with vomiting, unspecified; R00.0 Tachycardia, unspecified

== ENCOUNTER → 2024-06-30 | Outpatient (CLI) | payer OTHER | LOC: M ADAMS 15:07 | PROVIDERS: ATTEND Physician Assistant Medical | DX: R05.1 Acute cough (principal) ==

== ENCOUNTER → 2024-08-02 | Outpatient (CLI) | payer OTHER | LOC: M WHC 14:21 | PROVIDERS: ATTEND Student in an Organized Health Care Education/Training Program | DX: K90.0 Celiac disease (principal); K21.9 Gastro-esophageal reflux disease without esophagitis; R11.2 Nausea with vomiting, unspecified; R14.0 Abdominal distension (gaseous); K59.00 Constipation, unspecified ==

== ENCOUNTER → 2024-08-17 | Outpatient (REF) | payer OTHER ==
[2024-08-17 18:25] LABS: APPEARANCE, URINE HAZY (CLEAR); BACTERIA, URINE AUTO 1+ (NEGATIVE); BILIRUBIN, URINE AUTO NEGATIVE (NEGATIVE); BLOOD, URINE BLOOD NEGATIVE (NEGATIVE); COLOR, URINE YELLOW (YELLOW); GLUCOSE, URINE (UA) AUTO NEGATIVE (NEGATIVE); KETONE, URINE AUTO NEGATIVE (NEGATIVE); LEUKOCYTE ESTERASE, URINE AUTO TRACE (NEGATIVE); MUCUS, URINE SMALL (NEGATIVE); NITRITE, URINE AUTO POSITIVE (NEGATIVE); PROTEIN, URINE AUTO NEGATIVE (NEGATIVE); RBC, URINE AUTO 2 /HPF (0-3); SPECIFIC GRAVITY URINE AUTO 1.017 (1.002-1.035); SQUAMOUS EPITHELIAL CELL UR AU 3 /HPF (0-6); UROBILINOGEN, URINE AUTO 0.2 mg/dL (0.0-2.0); WBC, URINE AUTO 14 /HPF (0-3)
== END ==
LOC: M SFHCADAM 17:28
PROVIDERS: ATTEND Physician Assistant Medical
DX: R30.0 Dysuria (principal)

== ENCOUNTER 2024-08-19 06:53 | Emergency (ER) | payer OTHER ==
[~2024-08-19] VITALS: Ht 160 cm; Wt 75.9 kg
[2024-08-19] MEDS: ACETAMINOPHEN 325 MG TAB PO ONE (08:48)
[2024-08-19] MEDS: KETOROLAC 30 MG/ML 1ML VIAL IV ONE (08:49)
[2024-08-19 09:05] VITALS: BP 151/82; TEMP 97.9; O2SAT 100
== END 2024-08-19 09:13 | disposition home or self-care (01) ==
LOC: M ED 06:53
DX: S40.012A Contusion of left shoulder, initial encounter (principal); S60.212A Contusion of left wrist, initial encounter; V48.5XXA Car driver injured in noncollision transport accident in traffic accident, initial encounter; Y92.9 Unspecified place or not applicable; Y93.9 Activity, unspecified; Y99.9 Unspecified external cause status; E10.9 Type 1 diabetes mellitus without complications; Z97.5 Presence of (intrauterine) contraceptive device; Z79.4 Long term (current) use of insulin; Z79.899 Other long term (current) drug therapy; Z91.018 Allergy to other foods
CPT/HCPCS: 70450; 72125; 73030; 73110; 80047; 81001; 96374; 99284; J1885

== ENCOUNTER → 2024-12-13 | Outpatient (REF) | payer OTHER ==
[2024-12-13 14:42] LABS: ALBUMIN 3.4 G/DL (3.2-5.2); ALKALINE PHOSPHATASE 130 U/L (35-104); ALT/SGPT 24 U/L (7.0-40); AST/SGOT 17 U/L (<34); BILIRUBIN,TOTAL 0.4 MG/DL (0.3-1.2); BLOOD UREA NITROGEN 14 MG/DL (9-23); CALCIUM LEVEL 8.5 MG/DL (8.5-10.1); CARBON DIOXIDE LEVEL 28 MMOL/L (20-31); CHLORIDE LEVEL 104 MMOL/L (98-107); CHOLESTEROL LEVEL 115 MG/DL (<200); CREATININE FOR GFR 0.57 MG/DL (0.55-1.30); GLOMERULAR FILTRATION RATE > 60.0 (>60); GLUCOSE, FASTING 123 MG/DL (60-100); LDL CHOLESTEROL 54.8 MG/DL (<100); POTASSIUM SERUM 4.4 MMOL/L (3.5-5.1); SODIUM LEVEL 140 MMOL/L (136-145); TOTAL PROTEIN 6.6 G/DL (5.7-8.2); TRIGLYCERIDES LEVEL 71 MG/DL (<150)
== END ==
LOC: M LABDRWAD 13:23
PROVIDERS: ATTEND Nurse Practitioner Family
DX: E10.65 Type 1 diabetes mellitus with hyperglycemia (principal); E78.2 Mixed hyperlipidemia

== ENCOUNTER → 2024-12-27 | Outpatient (CLI) | payer OTHER | LOC: M SOG 07:53 | PROVIDERS: ATTEND Physician Assistant | DX: M25.531 Pain in right wrist (principal) ==

== ENCOUNTER → 2025-09-18 | Outpatient (REF) | payer OTHER ==
[~2025-09-18] MED LIST changes: -GLUC3SPR NARES; +GLUC3SPR5 NARES; -IBUP-1022 PO; +IBUP600T42 PO; +LAMO-18; -LAMO25TA4; +LISI40TA10 PO; -LISI40TA4 PO
== END ==
LOC: M LAB REF 17:15
DX: J06.9 Acute upper respiratory infection, unspecified (principal)